=== PATIENT | male | born 1935 | race Caucasian/White ===

== ENCOUNTER 2017-09-08 17:47 | Inpatient (IN) | payer MEDICARE, BC ==
[~2017-09-08] VITALS: Ht 167.6 cm; Wt 49.9 kg
[2017-09-08] MEDS ORDERED: NYSTATIN100000 UN1 ORAL (17:55)
[2017-09-08] MEDS ORDERED: ALUM-MAG HYDRO360 ML PO (17:55)
[2017-09-08] MEDS ORDERED: VITAMIN B-1100 MG ORAL (17:55)
[2017-09-08] MEDS ORDERED: CULTURELLE1 TAB ORAL (17:55)
[2017-09-08] MEDS ORDERED: FOLIC ACID1 MG ORAL (17:55)
[2017-09-08] MEDS ORDERED: ACID CONTROL150 MG ORAL (17:55)
[2017-09-08] MEDS ORDERED: MILK OF MA2400 MG/10 ORAL (17:55)
[2017-09-08] MEDS ORDERED: AMLODIPINE BES2.5 MG ORAL (17:55)
[2017-09-08] MEDS ORDERED: DOCUSATE SODIU100 MG ORAL (17:55)
[2017-09-08] MEDS ORDERED: MULTIVITAMINS1 EAC2 ORAL (17:55)
[2017-09-08] MEDS ORDERED: AUGMENTIN 500-1 EACH ORAL (17:55)
[2017-09-08] MEDS ORDERED: VENELEX OINTMEN60 GM TP (17:55)
[2017-09-08] MEDS ORDERED: TYLENOL EXTRA500 MG ORAL (17:55)
[2017-09-08] MEDS ORDERED: METOPROLOL TART25 MG ORAL (17:55)
[2017-09-08] MEDS ORDERED: CLOPIDOGREL75 MG ORAL (17:55)
[2017-09-08] MEDS ORDERED: PANTOPRAZOLE SO40 MG ORAL (17:55)
[2017-09-08] MEDS ORDERED: ASPIR 8181 MG ORAL (17:55)
[2017-09-08 18:22] VITALS: BP 121/71
[2017-09-08 18:48] LABS: EOSINOPHILS % (AUTO) 1.4 % (0.0-3.0); HEMATOCRIT 57.2 % (42.0-52.0); LYMPHOCYTES % (AUTO) 23.8 % (20.0-45.0); MEAN CORPUSCULAR VOLUME 105 FL (80-99); MONOCYTES % (AUTO) 8.1 % (1.0-10.0); NEUTROPHILS % (AUTO) 65.7 % (45.0-75.0); PLATELET COUNT 168 K/UL (150-450); RED BLOOD COUNT 5.44 M/UL (4.70-6.10); RED CELL DISTRIBUTION WIDTH 13.6 % (11.6-14.8); WHITE BLOOD COUNT 7.9 K/UL (4.8-10.8)
[2017-09-08 19:12] VITALS: BP 130/76
[2017-09-08 19:24] LABS: ALANINE AMINOTRANSFERASE 68 U/L (12-78); ALBUMIN 3.9 G/DL (3.4-5.0); ALBUMIN/GLOBULIN RATIO 0.7 (1.0-2.7); ALKALINE PHOSPHATASE 89 U/L (46-116); ANION GAP 11 mmol/L (5-15); ASPARTATE AMINO TRANSFERASE 39 U/L (15-37); BILIRUBIN,TOTAL 0.8 MG/DL (0.2-1.0); BLOOD UREA NITROGEN 113 mg/dL (7-18); CALCIUM 10.9 MG/DL (8.5-10.1); CARBON DIOXIDE 26 MMOL/L (21-32); CHLORIDE 122 MMOL/L (98-107); CKMB 0.8 NG/ML (0.0-3.6); CREATINE KINASE 135 U/L (26-308); CREATININE 2.8 MG/DL (0.55-1.30); PHOSPHORUS 4.9 MG/DL (2.5-4.9); POTASSIUM 5.3 MMOL/L (3.5-5.1); SODIUM 160 MMOL/L (136-145)
[2017-09-08] MEDS ORDERED: MULTIVITAMINS1 EAC8 ORAL (19:38)
[2017-09-08] MEDS ORDERED: ATORVASTATIN CA40 MG ORAL (19:42)
[2017-09-08] MEDS ORDERED: cefTRIAXone 1 GM in NS 55 ML IVPB ONE (20:00)
[2017-09-08 21:34] VITALS: BP 114/65
--- NOTE | 2017-09-08 23:05 | Emergency Room Report ---
History of Present Illness General Chief Complaint: Generalized Weakness Source: Medical Record Present Illness HPI This is an 81-year-old male brought in by caregiver after increased generalized weakness and failure to thrive. The patient prior history of dementia. The patient was noted to be somewhat confused. Patient has a caregiver per reportedly had been having decreased urine output. Allergies: Coded Allergies: MORPHINE (Verified Allergy, Unknown, 09/08/17) Patient History Past Medical History: see triage record Reviewed Nursing Documentation: PMH: Agreed, PSxH: Agreed Nursing Documentation-PMH Past Medical History: No History, Except For Hx Hypertension: Yes Review of Systems All Other Systems: limited - by mental status Physical Exam Vital Signs Date Time Temp Pulse Resp B/P (MAP) Pulse Ox O2 Delivery O2 Flow Rate FiO2 09/08/17 17:44 97.9 84 18 109/66 100 Room Air Sp02 EP Interpretation: reviewed, normal General Appearance: alert, cachetic, Chronically Ill Head: atraumatic ENT: normal ENT inspection, normal voice, dry mucus membranes Neck: normal inspection, full range of motion, supple, no bony tend Respiratory: normal inspection, lungs clear, normal breath sounds, no respiratory distress, no retraction, no wheezing Cardiovascular #1: regular rate, rhythm, no edema Gastrointestinal: soft, other - distended bladder Genitourinary: no CVA tenderness Musculoskeletal: normal inspection, decreased range of motion, other - muscle atrophy Neurologic: responsive, oil deliverer III-XII nml as tested, speech normal, motor weakness Psychiatric: normal inspection, judgement/insight normal, mood/affect normal Skin: normal inspection, normal color, no rash Medical Decision Making Diagnostic Impression: Primary Impression: Episode of generalized weakness Additional Impressions: Dehydration Urinary obstruction Acute renal failure ER Course .Patient presented for generalized weakness. Differential diagnosis included was not limited to anemia, urinary tract infection, electrolyte abnormality, hypothyroidism, myocardial infarction, myasthenia gravis, dehydration, among others. Because of complexity of patient's case laboratory testing and imaging studies were ordered. Lab for testing was notable for markedly elevated sodium as well as evidence of elevated BUN/creatinine. The patient started on IV hydration. A Mack catheter was attempted by nursing staff without success as patient was noted to have a markedly distended bladder on exam. Dr. Claudio was contacted for urology consult. Patient was noted to large amount of urine output after catheter was placed. Patient was given IV antibiotics empirically for possible urinary infection. Dr. Yanet Medellin was contacted for inpatient management due to primary care physician Lab Results Impression Labs Test 09/08/17 18:20 White Blood Count 7.9 K/UL (4.8-10.8) Red Blood Count 5.44 M/UL (4.70-6.10) Hemoglobin 18.0 G/DL (14.2-18.0) Hematocrit 57.2 % (42.0-52.0) Mean Corpuscular Volume 105 FL (80-99) Mean Corpuscular Hemoglobin 33.1 PG (27.0-31.0) Mean Corpuscular Hemoglobin Concent 31.5 G/DL (32.0-36.0) Red Cell Distribution Width 13.6 % (11.6-14.8) Platelet Count 168 K/UL (150-450) Mean Platelet Volume 9.9 FL (6.5-10.1) Neutrophils (%) (Auto) 65.7 % (45.0-75.0) Lymphocytes (%) (Auto) 23.8 % (20.0-45.0) Monocytes (%) (Auto) 8.1 % (1.0-10.0) Eosinophils (%) (Auto) 1.4 % (0.0-3.0) Basophils (%) (Auto) 1.0 % (0.0-2.0) Prothrombin Time 10.7 SEC (9.30-11.50) Prothromb Time International Ratio 1.0 (0.9-1.1) Activated Partial Thromboplast Time 20 SEC (23-33) Sodium Level 160 MMOL/L (136-145) Potassium Level 5.3 MMOL/L (3.5-5.1) Chloride Level 122 MMOL/L (98-107) Carbon Dioxide Level 26 MMOL/L (21-32) Anion Gap 11 mmol/L (5-15) Blood Urea Nitrogen 113 mg/dL (7-18) Creatinine 2.8 MG/DL (0.55-1.30) Estimat Glomerular Filtration Rate mL/min (>60) Glucose Level 128 MG/DL (74-106) Lactic Acid Level 2.40 mmol/L (0.66-2.22) Calcium Level 10.9 MG/DL (8.5-10.1) Phosphorus Level 4.9 MG/DL (2.5-4.9) Magnesium Level 3.4 MG/DL (1.8-2.4) Total Bilirubin 0.8 MG/DL (0.2-1.0) Aspartate Amino Transf (AST/SGOT) 39 U/L (15-37) Alanine Aminotransferase (ALT/SGPT) 68 U/L (12-78) Alkaline Phosphatase 89 U/L (46-116) Total Creatine Kinase 135 U/L (26-308) Creatine Kinase MB 0.8 NG/ML (0.0-3.6) Creatine Kinase MB Relative Index 0.5 Troponin I 0.006 ng/mL (0.000-0.056) Total Protein 9.4 G/DL (6.4-8.2) Albumin 3.9 G/DL (3.4-5.0) Globulin 5.5 g/dL Albumin/Globulin Ratio 0.7 (1.0-2.7) Last Vital Signs Date Time Temp Pulse Resp B/P (MAP) Pulse Ox O2 Delivery O2 Flow Rate FiO2 09/08/17 21:34 97.9 97 18 114/65 99 Room Air Status: unchanged Disposition: ADMITTED INPATIENT Condition: Serious Referrals: YANET MEDELLIN (PCP) Juan Ramon Crystal Sep 08, 2017 23:05
[2017-09-08] MEDS ORDERED: Milk of Magnesia 30ml Ud ORAL PRN (23:15)
[2017-09-08 23:23] LABS: APPEARANCE,URINE CLEAR; BILIRUBIN, URINE NEGATIVE (NEGATIVE); COLOR,URINE PALE YELLOW; GLUCOSE, URINE (UA) NEGATIVE (NEGATIVE); KETONES,URINE NEGATIVE (NEGATIVE); LEUKOCYTE ESTERASE ,URINE NEGATIVE (NEGATIVE); NITRITE,URINE NEGATIVE (NEGATIVE); PH,URINE 5 (4.5-8.0); PROTEIN,URINE 1+ (NEGATIVE); UROBILINOGEN,URINE NORMAL MG/DL (0.0-1.0)
[2017-09-09] VITALS (7 sets, daily range): BP systolic 96–137; BP diastolic 54–92
--- NOTE | 2017-09-09 | Consultation ---
DATE OF CONSULTATION: 09/08/2017 UROLOGY CONSULTATION PREOPERATIVE DIAGNOSIS: Urinary retention. POSTOPERATIVE DIAGNOSES: 1. Urinary retention. 2. Urethral stricture. PLASTICS PLATER: Dr. Bonds. REASON FOR CONSULTATION: The patient is an 81-year-old male came into the emergency room with altered mental status, found to be in urinary retention. I was not able to gather any other history from this patient. Nurses attempted to place Mack catheter unsuccessfully. The patient developed hematuria from the urethra, I was called. PHYSICAL EXAMINATION: Hematuria at the penile urethral meatus and otherwise genitourinary exam relatively normal. At this point with urinary retention, I decided to place a Mack catheter and proceeded with a complicated Mack catheter placement using the catheter guide. With a 16-Spanish Mack catheter, I noticed resistance at the bulbar urethra, however, with a catheter guide, I was able to pass this area and enter the bladder. There was some hematuria around the catheter, however, the urine from the bladder became relatively grossly clear. My recommendation on this patient is to continue with the Mack catheter for another couple of days while his medical issues are resolved and then the Mack catheter may be removed to see if he can void and then to please call if there is any difficulty with voiding at that time, however, improved with dilation of stricture, which occurred with placement of Mack catheter with a catheter guide that I performed. Yasmany Bonds DR: ANGEL JOB#: [id number] CC:
[2017-09-09] MEDS ORDERED: ZANTAC150 MG ORAL (01:12)
[2017-09-09] MEDS: Nystatin Susp 500,000 units/5ml ORAL SCH ×3 (08:00→19:00)
[2017-09-09] MEDS: Thiamine 100mg tab ORAL SCH (08:01)
[2017-09-09] MEDS: Docusate 100mg cap ORAL SCH ×3 (08:01→22:00)
[2017-09-09] MEDS: Lactobacillus-GG tablet ORAL SCH ×2 (08:01→19:00)
[2017-09-09] MEDS: Metoprolol 25mg tab ORAL SCH ×2 (08:02→22:00)
[2017-09-09] MEDS: Aspirin Baby 81mg ORAL SCH (08:03)
[2017-09-09] MEDS: Heparin 5000 units/ml inj SUBQ SCH ×2 (08:04→22:02)
[2017-09-09 10:31] LABS: BASOPHILS % (AUTO) 0.9 % (0.0-2.0); EOSINOPHILS % (AUTO) 2.1 % (0.0-3.0); HEMATOCRIT 47.3 % (42.0-52.0); HEMOGLOBIN 14.8 G/DL (14.2-18.0); LYMPHOCYTES % (AUTO) 15.1 % (20.0-45.0); MEAN CORPUSCULAR VOLUME 105 FL (80-99); MONOCYTES % (AUTO) 8.3 % (1.0-10.0); NEUTROPHILS % (AUTO) 73.6 % (45.0-75.0); PLATELET COUNT 156 K/UL (150-450); RED BLOOD COUNT 4.51 M/UL (4.70-6.10); RED CELL DISTRIBUTION WIDTH 13.6 % (11.6-14.8); WHITE BLOOD COUNT 8.4 K/UL (4.8-10.8)
[2017-09-09 10:54] LABS: ALANINE AMINOTRANSFERASE 63 U/L (12-78); ALBUMIN 3.2 G/DL (3.4-5.0); ALBUMIN/GLOBULIN RATIO 0.7 (1.0-2.7); ALKALINE PHOSPHATASE 78 U/L (46-116); ANION GAP 8 mmol/L (5-15); ASPARTATE AMINO TRANSFERASE 37 U/L (15-37); BILIRUBIN,TOTAL 0.7 MG/DL (0.2-1.0); BLOOD UREA NITROGEN 93 mg/dL (7-18); CALCIUM 9.8 MG/DL (8.5-10.1); CARBON DIOXIDE 28 MMOL/L (21-32); CHLORIDE 126 MMOL/L (98-107); CHOLESTEROL 98 MG/DL (< 200); CREATININE 2.4 MG/DL (0.55-1.30); HDL CHOLESTEROL 22 MG/DL (40-60); POTASSIUM 4.6 MMOL/L (3.5-5.1); TRIGLYCERIDES 78 MG/DL (30-150)
[2017-09-09 11:10] LABS: SODIUM 162 MMOL/L (136-145)
--- NOTE | 2017-09-09 11:12 | Diagnostic Imaging Report ---
Indication: Dyspnea Technique: XRAY Chest 1v Comparison: None Findings: Heart size is within normal limits. Atherosclerotic calcifications noted in the aortic arch. There is mild nonspecific interstitial prominence. There is no focal airspace consolidation, pleural effusion or pneumothorax. There is osteopenia and degenerative change of the spine. No acute osseous abnormality is seen. Impression: Minimal nonspecific interstitial prominence, likely chronic. No focal airspace consolidation, pleural effusion or pneumothorax.
--- NOTE | 2017-09-09 11:26 | Consultation ---
Consult Note Assessment/Plan Renal consult dictated # [id number] MARYA KENDALL Sep 09, 2017 11:26
[2017-09-09] MEDS ORDERED: NS Irrig 1000ml ONE (13:44)
--- NOTE | 2017-09-09 14:41 | Consultation ---
Consult Note Consult Note [facility] CONSULTATION - NEUROLOGY 09/09/2017 MARKETING SYSTEMS MANAGER: Susy Brice M.D. REFERRING PHYSICIAN: Quintin Walker M.D. HISTORY: Mr. Aashish Cordova is an 81-year-old, right-handed, gentleman, who does have a past history of hypertension, dyslipidemia, coronary artery disease - status post percutaneous intervention, chronic kidney disease, benign prostatic hypertrophy, anemia, alcoholism a dementia. He was functioning relatively well until 08/13/2017, when he was brought to the [facility] emergency room for a 2-day history of a dry cough, generalized weakness, fever to 101 degrees Fahrenheit, and inability to get out of bed. When he was evaluated and was found to have influenza type A, and in addition, a possible pneumonia. He was treated for those problems, and improved. He has had a cognitive decline for the last year or so, and as per his caregiver, he has had problems with controlling his limbs, especially his hands, for the last 6 months ago. In addition, his legs have also become weaker, and walking has deteriorated to a point where he has now lost his ability to walk. He, himself, is quite oblivious of what is going on. He had a thorough work up at [facility]. The EEG revealed a moderate encephalopathy. The MRI of the brain done on 08/16/17 revealed significant atrophy, moderate microvascular ischemic white matter pathology, and marked ventriculomegaly without obstructive mass of an ex-vacuo nature. It was felt that he had an ongoing acute infection with influenza A associated with a toxic febrile illness, and his dementia was most probably of a primary degenerative nature. He was then stabilized and sent home with his caregivers. For the last few days he had not been eating or drinking and his mental state was further deteriorating. He was thus brought into the [facility] ER and admitted. Evaluation in the ER revealed that he was severely dehydrated. He was started on IV fluids and has since improved. He denies any weakness on one side or the other, numbness on one side or the other, problems with speech, problems with language, problems with vision, problems with memory, or any other neurological symptoms. PAST MEDICAL HISTORY: Significant for hypertension, dyslipidemia, chronic kidney disease, coronary artery disease - status post percutaneous intervention, benign prostatic hypertrophy, chronic anemia, alcoholism, a recent infection with influenza A and dementia. FAMILY HISTORY: Nothing significant as per the patient. PERSONAL HISTORY: Home: He lives at home with 24-hour caregivers. 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 Habits: He used to smoke up to 2 packs of cigarettes per day for numerous years. He stopped smoking a few years ago. He used to drink alcohol in large quantities in the past, but now only has a glass of wine with a steak once in awhile. He denies the use of any illicit drugs. PHYSICAL EXAMINATION: GENERAL: He is a well-developed but lean and ill-looking gentleman lying in bed, in no acute distress. VITAL SIGNS: Pulse 98 per minute Blood pressure 117/59 mmHg, Respirations 18 per minute Temperature 97 degrees Fahrenheit. HEAD: Normocephalic and atraumatic. NECK: No neck rigidity was observed. EENT: Examination benign. NEUROLOGICAL EXAMINATION: MENTAL STATUS EXAMINATION: He was awake and alert. He was oriented to self only. He had no idea where he was or what the date was. He was able to recall 3/3 words immediately, but could not remember any of them in 1 minute and 3 minutes, even on the second trial. He was unable to tell me who the present president was and who prior presidents were. His mathematical skills were impaired. His visuospatial function was also impaired. SPEECH: He had a mild dysarthria. LANGUAGE: He had problems with comprehension, repetition, naming, and expression of language. CRANIAL NERVE EXAMINATION: II: The visual miller were difficult to test because of his inability to cooperate. He did, however, blink to threat in all miller. He made numerous errors when he was made to count fingers. III, IV & : The external ocular movements were full, and the pupils 3 mm in diameter, equal, round, regular, and reactive to light. V: He had normal facial sensations and the temporales, masseters, and pterygoids functioned normally. VII: He had a trace right 7th central facial paresis. VIII: He was able to hear, and had no nystagmus. IX: The palate moved symmetrically on phonation. X: He had no hoarseness of voice. XI: The sternocleidomastoids and trapezii functioned normally. XII: The tongue was in the midline without any fasciculations or atrophy. MOTOR SYSTEM: The tone was increased in all 4 extremities with a combination of spasticity and Gegenhalten. Examination of muscle mass revealed no focal wasting. Examination of power was exceedingly difficult to perform because of varying degrees of cooperation. He did, however, move all 4 extremities on command with mild distal upper extremity and proximal lower extremity weakness. SENSORY EXAMINATION: He was able to discern between pinprick and light touch. He was unable to cooperate for other sensory modalities. REFLEXES: 1+ and bilaterally symmetrical at~the biceps, triceps, brachioradialis, and knees; 0 at both ankles. The plantar responses were flexor bilaterally. COORDINATION:He was significantly apractic in both his upper and lower extremities, and was unable to perform vvdytt-ms-[id number] and kpef-ak-[id number] testing. STANCE & GAIT: Were deferred because, even when attempts were made to sit him up, he was severely apractic. DIAGNOSTIC IMPRESSION: 1. Mr. Aashish Cordova is an 81-year-old, right-handed, gentleman, who does have a past history of hypertension, dyslipidemia, coronary artery disease - status post percutaneous intervention, chronic kidney disease, benign prostatic hypertrophy, anemia, alcoholism, influenza type A, and a possible pneumonia, and a cognitive decline for the last year. He was hospitalized for failure to thrive. 2. On neurological examination, at this time, he does have problems with orientation, recent and remote memory, visuospatial function, higher cognitive function, and language. 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 3. His laboratory data on admission revealed that his creatinine was elevated to 2.8, his BUN was elevated to 113, his Na was elevated to 162, his Cl was elevated to 122, his HB was elevated to 18 G. 4. The patient's history, neurological examination, laboratory data are most compatible with failure to thrive due to severe dehydration due to not eating or drinking. He also has an underlying advanced dementia. RECOMMENDATIONS: 1. Agree with management thus far. 2. Would treat the patient's dehydration - but correct it slowly. 3. Mobilize with PT/OT Thank you for entrusting me with the care of Mr. Cordova. I shall follow him with you. SUSY BRICE M.D., MDangSJusten. SUSY BRICE Sep 09, 2017 14:41
--- NOTE | 2017-09-09 19:15 | Consultation ---
DATE OF CONSULTATION: 09/09/2017 NEPHROLOGY CONSULTATION CONSULTING PHYSICIAN: Baudilio Payne M.D. REFERRING PHYSICIAN: Quintin Walker M.D. REASON FOR CONSULTATION: Hypernatremia and renal failure. HISTORY OF PRESENT ILLNESS: This is an 81-year-old after white male, who was brought in by caregiver apparently for generalized weakness and failure to thrive. The patient does have a history of dementia. Upon admission, it was found that he had a serum sodium of 160. Also BUN and creatinine were elevated at 113 and 2.8. The patient received some intravenous normal saline bolus and then later started on D5W at 125 mL/hour. Today, the serum sodium is still elevated at 162 and BUN and creatinine are 93 and 2.4 respectively. The patient is unable to provide any history. He is somewhat lethargic. PAST MEDICAL HISTORY: The patient has history of hyperlipidemia and dementia. Otherwise, I am not able to get any additional information. MEDICATIONS: Reviewed in the EMR and reconciled. ALLERGIES: Reported to morphine. SOCIAL HISTORY: The patient lives with a caregiver. No history of smoking or alcohol abuse. REVIEW OF SYSTEMS: Unobtainable. PHYSICAL EXAMINATION: GENERAL: The patient is an elderly male, in no acute distress. Somewhat lethargic. VITAL SIGNS: Blood pressure is 125/73, pulse 105, temperature 97.3, and respiratory rate is 16. HEENT: [place] conjunctivae. Anicteric sclerae. NECK: Supple. LUNGS: Clear to auscultation. HEART: S1 and S2 without murmurs or rubs. ABDOMEN: Soft and nontender. EXTREMITIES: No cyanosis or edema. LABORATORY FINDINGS: CBC as of today shows WBC of 8.4, hematocrit is 47.3, hemoglobin is 14.8, and platelet is 156,000. The chemistry panel shows a serum sodium 162, potassium 4.6, chloride 126, carbon dioxide 28, BUN 93, creatinine 2.4, and blood sugar is 163. Albumin is 3.2. UA shows 1+ protein and 20 to 30 RBCs per high-power field. ASSESSMENT: This is an 81-year-old white male, who was admitted with generalized weakness and failure to thrive. It was found that he had severe hypernatremia and also renal failure. I do not know what his baseline is, but likely he has acute renal failure as a result of prerenal azotemia. It may have underlying chronic kidney disease as well. He does have 1+ protein in the urine, which could hint towards chronic kidney disease from atherosclerosis. PLAN: Current intravenous fluid D5W at 125 mL/h is adequate to correct at least half of the free water deficit in the next 24 hours and I will continue with that. I assume that the serum sodium did not get corrected because the patient received some normal saline when he was admitted. In terms of his renal failure, he does have acute renal failure, which has improved again from prerenal azotemia. However if after hydration, he still has residual CKD, additional testing may be required such as a kidney ultrasound. Thank you very much, Dr. Walker, for this consultation. Baudilio Payne M.D. DR: JOAQUIN JOB#: [id number] CC:
[2017-09-09] MEDS: Atorvastatin 20mg tab ORAL SCH (22:00)
[2017-09-10] VITALS: BP 132/73
[2017-09-10 04:00] VITALS: BP 146/77
--- NOTE | 2017-09-10 04:33 | History and Physical Report ---
DATE OF ADMISSION: 09/08/2017 HISTORY OF PRESENT ILLNESS: The patient is a very pleasant, but unfortunate 81-year-old gentleman with a previous history of alcoholism, history of recent admission to [facility] with influenza, who presented to the emergency room here at [place] with failure to thrive, brought in by his caregiver with increased generalized weakness and not eating, confused, decreased urine output. The patient was evaluated in the ER, was noted to be in acute renal failure. He was also noted to be in urinary retention. A urologist was called by the ER physician and the Mack catheter was placed. There was no fevers or chills or cough at home. 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 ALLERGIES: Allergic to morphine. SOCIAL HISTORY: The patient resides at home, has a caregiver. Does not smoke, does not drink any alcohol at this time, although he has a history of alcoholism. PHYSICAL EXAMINATION: GENERAL: He is ill appearing, in no apparent distress. VITAL SIGNS: Temperature was 97.9, pulse 84, respiratory rate 18, blood pressure 109/66, and saturations 100% on room air. HEENT: Head, normocephalic and atraumatic. Pupils are equal and reactive to light. Extraocular muscles are intact. Eyes are anicteric. Throat, mucous membranes are very dry. NECK: Supple. LUNGS: Clear. HEART: Regular rate and rhythm. ABDOMEN: Soft. Positive bowel sounds. BACK: No CVA tenderness. EXTREMITIES: No clubbing, cyanosis, or edema. He does have muscle atrophy. NEUROLOGIC: Cranial nerves are intact. He has generalized weakness of his arms and legs. He opens his eyes. SKIN: He has got decreased turgor and dry. LABORATORY AND DIAGNOSTIC DATA: Revealed a white count of 7.9, hemoglobin 18, hematocrit 57.2, MCV 105, and platelet count 168,000. Sodium 160, potassium 5.3, chloride 122, BUN 113, creatinine 2.8, glucose 128, calcium 10.9, and magnesium 3.4. Troponin 0.06. Lactic acid 2.4. AST of 39. Urinalysis, 20 to 30 RBCs, 5+ blood, no WBCs. This is through the Mack. His chest x-ray reveals minimal nonspecific interstitial prominence, likely chronic. No focal airspace consolidation, effusion, or pneumothorax. ASSESSMENT AND PLAN: The patient is an unfortunate 81-year-old gentleman, who presents with failure to thrive and appears to be in acute renal failure, urinary obstruction, and he had a distended bladder. Mack was placed. The patient will be admitted. Renal ultrasound will be obtained. He will be placed on D5W. I will ask for Nephrology consultation from Dr. Payne to see him as well as Neurology consultation from Dr. Feng to see him. The patient should be on DVT and ulcer prophylaxis. Quintin Walker M.D. DR: TREY JOB#: [id number] CC:
--- NOTE | 2017-09-10 05:03 | Progress Note ---
DATE: 09/09/2017 UROLOGY PROGRESS NOTE SUBJECTIVE: The patient is currently without complaints, mainly in bed comfortably with Mack catheter in place. Mack catheter is draining clear urine. OBJECTIVE: VITAL SIGNS: Include a temperature of 98.1 degrees, blood pressure 137/78. ABDOMEN: Soft and nontender. Mack catheter is in place with no hematuria and no bleeding around the urethral meatus. LABORATORY VALUES: Include sodium of 162, potassium 4.6, BUN of 97, and creatinine 2.4. ASSESSMENT AND PLAN: My assessment of the patient is that he has severe hypernatremia. He has urinary retention from a urethral stricture. Mack catheter is in place draining beautifully and should be maintained while his medical issues are being addressed. Once the medical condition has improved, Mack catheter may be removed as he will likely be able to urinate much better as urethral stricture has been dilated in the process of placing the Mack catheter. Yasmany Bonds DR: Marcelina JOB#: [id number] CC:
[2017-09-10 08:00] VITALS: BP 144/62
[2017-09-10] MEDS: Thiamine 100mg tab ORAL SCH (09:17)
[2017-09-10] MEDS: Aspirin Baby 81mg ORAL SCH (09:17)
[2017-09-10] MEDS: Docusate 100mg cap ORAL SCH ×2 (09:17→20:06)
[2017-09-10] MEDS: Nystatin Susp 500,000 units/5ml ORAL SCH ×3 (09:19→17:34)
[2017-09-10] MEDS: Lactobacillus-GG tablet ORAL SCH ×2 (09:19→17:35)
[2017-09-10] MEDS: Heparin 5000 units/ml inj SUBQ SCH ×2 (09:25→20:09)
[2017-09-10] MEDS: Metoprolol 25mg tab ORAL SCH ×2 (09:27→20:07)
[2017-09-10 12:00] VITALS: BP 128/66
--- NOTE | 2017-09-10 12:33 | General Progress Note ---
Assessment/Plan Problem List: (1) Hypernatremia ICD Codes: E87.0 - Hyperosmolality and hypernatremia SNOMED: 03649301 (2) Acute renal failure ICD Codes: N17.9 - Acute kidney failure, unspecified SNOMED: 50585162 (3) Episode of generalized weakness ICD Codes: R53.1 - Weakness SNOMED: 09953172 Assessment/Plan IVF check labs Renal US Discussed with RN Subjective Allergies: Coded Allergies: MORPHINE (Verified Allergy, Unknown, 09/08/17) Subjective more alert Objective Last 24 Hour Vital Signs Date Time Temp Pulse Resp B/P (MAP) Pulse Ox O2 Delivery O2 Flow Rate FiO2 09/10/17 09:27 105 144/62 09/10/17 09:26 105 144/62 09/10/17 08:00 105 09/10/17 08:00 97.9 105 18 144/62 96 Room Air 09/10/17 04:00 98.0 112 16 146/77 95 Room Air 09/10/17 04:00 115 09/10/17 00:00 121 09/10/17 00:00 98.1 123 16 132/73 97 Room Air 09/09/17 22:00 127 133/75 09/09/17 20:00 97.0 62 15 96/57 90 09/09/17 20:00 125 09/09/17 16:00 99 09/09/17 16:00 96.4 109 20 134/92 97 Room Air Intake and Output 09/09/17 09/10/17 19:00 07:00 Intake Total 1250 ml Output Total 200 ml 400 ml Balance 1050 ml -400 ml IV Total 1250 ml Output Urine Total 200 ml 400 ml # Bowel Movements 1 Laboratory Tests 09/10/17 12:10: Sodium Level [Pending], Potassium Level [Pending], Chloride Level [Pending], Carbon Dioxide Level [Pending], Blood Urea Nitrogen [Pending], Creatinine [ Pending], Estimat Glomerular Filtration Rate [Pending], Glucose Level [Pending] , Calcium Level [Pending] Height (Feet): 5 Height (Inches): 6.00 Weight (Pounds): 110 Cardiovascular: normal rate Respiratory/Chest: lungs clear Edema: no edema noted MARYA Kelly Sep 10, 2017 12:33
[2017-09-10 12:37] LABS: ANION GAP 8 mmol/L (5-15); BLOOD UREA NITROGEN 67 mg/dL (7-18); CARBON DIOXIDE 24 MMOL/L (21-32); CHLORIDE 122 MMOL/L (98-107); POTASSIUM 4.1 MMOL/L (3.5-5.1); SODIUM 154 MMOL/L (136-145)
--- NOTE | 2017-09-10 14:02 | Neurology Progress Note ---
Interim History Interim History Interim History Mr. Cordova feels better today. He is brighter. He however continues to be cognitively impoverished. He continues to be motorically challenged. He has a very painful left ankle. His caregiver says he has a sore there. He denies any new neurologic symptoms. Review of Systems Neuro Review of Systems Unable to obtain. Objective Physical Exam Last Vital Signs Date Time Temp Pulse Resp B/P (MAP) Pulse Ox O2 Delivery O2 Flow Rate FiO2 09/10/17 09:27 105 144/62 09/10/17 08:00 97.9 18 96 Room Air Laboratory Tests Test 09/10/17 12:10 Sodium Level 154 MMOL/L (136-145) H Potassium Level 4.1 MMOL/L (3.5-5.1) Chloride Level 122 MMOL/L (98-107) H Carbon Dioxide Level 24 MMOL/L (21-32) Anion Gap 8 mmol/L (5-15) Blood Urea Nitrogen 67 mg/dL (7-18) H Creatinine 2.0 MG/DL (0.55-1.30) H Estimat Glomerular Filtration Rate mL/min (>60) Glucose Level 102 MG/DL (74-106) Calcium Level 9.0 MG/DL (8.5-10.1) Neurologic Exam Objective PHYSICAL EXAMINATION: GENERAL: He is a well-developed but lean and ill-looking gentleman lying in bed, in no acute distress. HEAD: Normocephalic and atraumatic. NECK: No neck rigidity was observed. EENT: Examination benign. NEUROLOGICAL EXAMINATION: MENTAL STATUS EXAMINATION: He was awake and alert. He was oriented to self only. He had no idea where he was or what the date was. He was able to recall 3/3 words immediately, but could not remember any of them in 1 minute and 3 minutes, even on the second trial. He was unable to tell me who the present president was and who prior presidents were. His mathematical skills were impaired. His visuospatial function was also impaired. SPEECH: He had a mild dysarthria. LANGUAGE: He had problems with comprehension, repetition, naming, and expression of language. CRANIAL NERVE EXAMINATION: II: The visual miller were difficult to test because of his inability to cooperate. He did, however, blink to threat in all miller. He made numerous errors when he was made to count fingers. III, IV & : The external ocular movements were full, and the pupils 3 mm in diameter, equal, round, regular, and reactive to light. V: He had normal facial sensations and the temporales, masseters, and pterygoids functioned normally. VII: He had a trace right 7th central facial paresis. VIII: He was able to hear, and had no nystagmus. IX: The palate moved symmetrically on phonation. X: He had no hoarseness of voice. XI: The sternocleidomastoids and trapezii functioned normally. XII: The tongue was in the midline without any fasciculations or atrophy. MOTOR SYSTEM: The tone was increased in all 4 extremities with a combination of spasticity and Gegenhalten. Examination of muscle mass revealed no focal wasting. Examination of power was exceedingly difficult to perform because of varying degrees of cooperation. He did, however, move all 4 extremities on command with mild distal upper extremity and proximal lower extremity weakness. SENSORY EXAMINATION: He was able to discern between pinprick and light touch. He was unable to cooperate for other sensory modalities. REFLEXES: 1+ and bilaterally symmetrical at~the biceps, triceps, brachioradialis , and knees; 0 at both ankles. The plantar responses were flexor bilaterally. COORDINATION:He was significantly apractic in both his upper and lower extremities, and was unable to perform [id number]-[id number] and oqby-uv-vmdw testing. STANCE & GAIT: Were deferred because, even when attempts were made to sit him up , he was severely apractic. Impression/Recommendations Diagnostic Impression 1. Mr. Aashish Cordova is an 81-year-old, right-handed, gentleman, who does have a past history of hypertension, dyslipidemia, coronary artery disease - status post percutaneous intervention, chronic kidney disease, benign prostatic hypertrophy, anemia, alcoholism, influenza type A, and a possible pneumonia, and a cognitive decline for the last year. He was hospitalized for failure to thrive. 2. He feels better today. He is brighter. He however continues to be cognitively impoverished. He continues to be motorically challenged. He has a very painful left ankle. 3. On neurological examination, at this time, he does have problems with orientation, recent and remote memory, visuospatial function, higher cognitive function, and language. 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 4. His laboratory data on admission revealed that his creatinine was elevated to 2.8, his BUN was elevated to 113, his Na was elevated to 162, his Cl was elevated to 122, his HB was elevated to 18 G. 5. The patient's history, neurological examination, laboratory data are most compatible with failure to thrive due to severe dehydration due to not eating or drinking. He also has an underlying advanced dementia. Recommendations 1. Continue present management. 2. Continue correction of hypernatremia slowly. 3. Mobilize with PT/OT. SUSY BRICE M.D., M.S.P.Tiffany. SUSY BRICE Sep 10, 2017 14:02
[2017-09-10 16:00] VITALS: BP 136/69
--- NOTE | 2017-09-10 16:47 | General Progress Note ---
Assessment/Plan Assessment/Plan dehration renal failure hypernatremia urinary obstruction dementia ho alcoholism fluids nephrolgy fup has rasmussen monitor labs dvt and ulcer prophylaxis pt/ot Subjective Allergies: Coded Allergies: MORPHINE (Verified Allergy, Unknown, 09/08/17) Subjective still lethargic but more awake, problem with swalllowing no chest pain or sob Objective Last 24 Hour Vital Signs Date Time Temp Pulse Resp B/P (MAP) Pulse Ox O2 Delivery O2 Flow Rate FiO2 09/10/17 16:00 97.4 85 20 136/69 96 Room Air 09/10/17 12:00 98.4 86 18 128/66 97 Room Air 09/10/17 12:00 88 09/10/17 09:27 105 144/62 09/10/17 09:26 105 144/62 09/10/17 08:00 105 09/10/17 08:00 97.9 105 18 144/62 96 Room Air 09/10/17 04:00 98.0 112 16 146/77 95 Room Air 09/10/17 04:00 115 09/10/17 00:00 121 09/10/17 00:00 98.1 123 16 132/73 97 Room Air 09/09/17 22:00 127 133/75 09/09/17 20:00 97.0 62 15 96/57 90 09/09/17 20:00 125 Intake and Output 09/09/17 09/10/17 19:00 07:00 Intake Total 1250 ml Output Total 200 ml 400 ml Balance 1050 ml -400 ml IV Total 1250 ml Output Urine Total 200 ml 400 ml # Bowel Movements 1 Laboratory Tests 09/10/17 12:10: Sodium Level 154H, Potassium Level 4.1, Chloride Level 122H, Carbon Dioxide Level 24, Anion Gap 8, Blood Urea Nitrogen 67H, Creatinine 2.0H, Estimat Glomerular Filtration Rate , Glucose Level 102, Calcium Level 9.0 Height (Feet): 5 Height (Inches): 6.00 Weight (Pounds): 110 Neck: supple Cardiovascular: normal rate Respiratory/Chest: lungs clear Abdomen: soft Objective ncat peerla temporal wasting mouth moist mucous membrane YANET MEDELLIN Sep 10, 2017 16:47
[2017-09-10 18:08] LABS: BASOPHILS % (AUTO) 0.8 % (0.0-2.0); EOSINOPHILS % (AUTO) 2.9 % (0.0-3.0); HEMATOCRIT 41.5 % (42.0-52.0); HEMOGLOBIN 13.2 G/DL (14.2-18.0); LYMPHOCYTES % (AUTO) 21.5 % (20.0-45.0); MEAN CORPUSCULAR VOLUME 103 FL (80-99); MONOCYTES % (AUTO) 7.7 % (1.0-10.0); NEUTROPHILS % (AUTO) 67.1 % (45.0-75.0); PLATELET COUNT 125 K/UL (150-450); RED BLOOD COUNT 4.02 M/UL (4.70-6.10); RED CELL DISTRIBUTION WIDTH 12.9 % (11.6-14.8); WHITE BLOOD COUNT 8.4 K/UL (4.8-10.8)
[2017-09-10 18:29] LABS: SODIUM 152 MMOL/L (136-145)
[2017-09-10 18:30] LABS: ALANINE AMINOTRANSFERASE 78 U/L (12-78); ALBUMIN 2.8 G/DL (3.4-5.0); ALBUMIN/GLOBULIN RATIO 0.7 (1.0-2.7); ALKALINE PHOSPHATASE 81 U/L (46-116); ANION GAP 9 mmol/L (5-15); ASPARTATE AMINO TRANSFERASE 68 U/L (15-37); BILIRUBIN,TOTAL 0.7 MG/DL (0.2-1.0); BLOOD UREA NITROGEN 61 mg/dL (7-18); CARBON DIOXIDE 27 MMOL/L (21-32); CHLORIDE 117 MMOL/L (98-107); CREATININE 1.9 MG/DL (0.55-1.30); POTASSIUM 4.1 MMOL/L (3.5-5.1)
[2017-09-10 20:00] VITALS: BP 144/77
[2017-09-10] MEDS: Atorvastatin 20mg tab ORAL SCH (20:07)
[2017-09-11] VITALS: BP 145/57
[2017-09-11 04:00] VITALS: BP 127/60
[2017-09-11 07:20] LABS: BASOPHILS % (AUTO) 0.6 % (0.0-2.0); EOSINOPHILS % (AUTO) 2.4 % (0.0-3.0); HEMATOCRIT 40.6 % (42.0-52.0); HEMOGLOBIN 13.4 G/DL (14.2-18.0); LYMPHOCYTES % (AUTO) 20.4 % (20.0-45.0); MEAN CORPUSCULAR VOLUME 102 FL (80-99); MONOCYTES % (AUTO) 7.9 % (1.0-10.0); NEUTROPHILS % (AUTO) 68.8 % (45.0-75.0); PLATELET COUNT 130 K/UL (150-450); RED BLOOD COUNT 3.98 M/UL (4.70-6.10); RED CELL DISTRIBUTION WIDTH 12.9 % (11.6-14.8); WHITE BLOOD COUNT 8.5 K/UL (4.8-10.8)
[2017-09-11 08:00] VITALS: BP 115/64
[2017-09-11 08:06] LABS: ANION GAP 9 mmol/L (5-15); BLOOD UREA NITROGEN 50 mg/dL (7-18); CALCIUM 8.9 MG/DL (8.5-10.1); CARBON DIOXIDE 25 MMOL/L (21-32); CHLORIDE 118 MMOL/L (98-107); CREATININE 1.9 MG/DL (0.55-1.30); SODIUM 151 MMOL/L (136-145)
--- NOTE | 2017-09-11 08:33 | General Progress Note ---
Assessment/Plan Assessment/Plan GI CONSULT Dictated Message left with William Haynes to call back to discuss matters. Will place NGT for now until further discussed with DPARETHA. Thank you Harrison Amezcua MD Subjective Allergies: Coded Allergies: MORPHINE (Verified Allergy, Unknown, 09/08/17) Objective Last 24 Hour Vital Signs Date Time Temp Pulse Resp B/P (MAP) Pulse Ox O2 Delivery O2 Flow Rate FiO2 09/11/17 04:00 98.8 109 18 127/60 97 Room Air 09/11/17 04:00 105 09/11/17 00:00 99.7 100 18 145/57 95 Room Air 09/11/17 00:00 96 09/10/17 20:07 104 144/77 09/10/17 20:00 98.2 104 24 144/77 94 Room Air 09/10/17 20:00 104 09/10/17 16:00 97.4 85 20 136/69 96 Room Air 09/10/17 16:00 78 09/10/17 12:00 98.4 86 18 128/66 97 Room Air 09/10/17 12:00 88 09/10/17 09:27 105 144/62 09/10/17 09:26 105 144/62 Intake and Output 09/10/17 09/11/17 19:00 07:00 Intake Total 425 ml 325 ml Output Total 550 ml 450 ml Balance -125 ml -125 ml Intake Oral 50 ml 200 ml IV Total 375 ml 125 ml Output Urine Total 550 ml 450 ml # Bowel Movements 1 Laboratory Tests 09/10/17 12:10: Sodium Level 154H, Potassium Level 4.1, Chloride Level 122H, Carbon Dioxide Level 24, Anion Gap 8, Blood Urea Nitrogen 67H, Creatinine 2.0H, Estimat Glomerular Filtration Rate , Glucose Level 102, Calcium Level 9.0 09/10/17 17:45: Sodium Level 152H, Potassium Level 4.1, Chloride Level 117H, Carbon Dioxide Level 27, Anion Gap 9, Blood Urea Nitrogen 61H, Creatinine 1.9H, Estimat Glomerular Filtration Rate , Glucose Level 119H, Calcium Level 9.0, White Blood Count 8.4, Red Blood Count 4.02L, Hemoglobin 13.2L, Hematocrit 41.5L, Mean Corpuscular Volume 103H, Mean Corpuscular Hemoglobin 32.9H, Mean Corpuscular Hemoglobin Concent 31.9L, Red Cell Distribution Width 12.9, Platelet Count 125L , Mean Platelet Volume 10.6H, Neutrophils (%) (Auto) 67.1, Lymphocytes (%) (Auto ) 21.5, Monocytes (%) (Auto) 7.7, Eosinophils (%) (Auto) 2.9, Basophils (%) ( Auto) 0.8, Total Bilirubin 0.7, Aspartate Amino Transf (AST/SGOT) 68H, Alanine Aminotransferase (ALT/SGPT) 78, Alkaline Phosphatase 81, Total Protein 7.0, Albumin 2.8L, Globulin 4.2, Albumin/Globulin Ratio 0.7L 09/11/17 04:40: Sodium Level 151H, Potassium Level 4.0, Chloride Level 118H, Carbon Dioxide Level 25, Anion Gap 9, Blood Urea Nitrogen 50H, Creatinine 1.9H, Estimat Glomerular Filtration Rate , Glucose Level 103, Calcium Level 8.9, White Blood Count 8.5, Red Blood Count 3.98L, Hemoglobin 13.4L, Hematocrit 40.6L, Mean Corpuscular Volume 102H, Mean Corpuscular Hemoglobin 33.6H, Mean Corpuscular Hemoglobin Concent 33.0, Red Cell Distribution Width 12.9, Platelet Count 130L, Mean Platelet Volume 10.4H, Neutrophils (%) (Auto) 68.8, Lymphocytes (%) (Auto) 20.4, Monocytes (%) (Auto) 7.9, Eosinophils (%) (Auto) 2.4, Basophils (%) (Auto ) 0.6, Thyroid Stimulating Hormone (TSH) 0.019L 09/11/17 08:00: Urine Color [Pending], Urine Appearance [Pending], Urine pH [Pending], Urine Specific [place] [Pending], Urine Protein [Pending], Urine Glucose (UA) [Pending ], Urine Ketones [Pending], Urine Occult Blood [Pending], Urine Nitrite [Pending ], Urine Bilirubin [Pending], Urine Urobilinogen [Pending], Urine Leukocyte Esterase [Pending], Urine RBC [Pending], Urine WBC [Pending], Urine Squamous Epithelial Cells [Pending], Urine Bacteria [Pending] Height (Feet): 5 Height (Inches): 6.00 Weight (Pounds): 110 HARRISON AMEZCUA Sep 11, 2017 08:33
[2017-09-11 08:35] LABS: APPEARANCE,URINE CLEAR; BILIRUBIN, URINE NEGATIVE (NEGATIVE); COLOR,URINE PALE YELLOW; GLUCOSE, URINE (UA) NEGATIVE (NEGATIVE); KETONES,URINE NEGATIVE (NEGATIVE); LEUKOCYTE ESTERASE ,URINE NEGATIVE (NEGATIVE); NITRITE,URINE NEGATIVE (NEGATIVE); PH,URINE 6.5 (4.5-8.0); PROTEIN,URINE 2+ (NEGATIVE); UROBILINOGEN,URINE NORMAL MG/DL (0.0-1.0)
--- NOTE | 2017-09-11 08:55 | Nephrology Progress Note ---
Assessment/Plan Problem List: (1) Hypernatremia Assessment: slightly better (2) Acute renal failure Assessment: no change (3) Episode of generalized weakness Plan IVF follow BMP, Phos, PTH Discussed with Dr St Discussed with resident care assistant check renal US Subjective Subjective In NAD Objective Objective Last 24 Hour Vital Signs Date Time Temp Pulse Resp B/P (MAP) Pulse Ox O2 Delivery O2 Flow Rate FiO2 09/11/17 04:00 98.8 109 18 127/60 97 Room Air 09/11/17 04:00 105 09/11/17 00:00 99.7 100 18 145/57 95 Room Air 09/11/17 00:00 96 09/10/17 20:07 104 144/77 09/10/17 20:00 98.2 104 24 144/77 94 Room Air 09/10/17 20:00 104 09/10/17 16:00 97.4 85 20 136/69 96 Room Air 09/10/17 16:00 78 09/10/17 12:00 98.4 86 18 128/66 97 Room Air 09/10/17 12:00 88 09/10/17 09:27 105 144/62 09/10/17 09:26 105 144/62 Intake and Output 09/10/17 09/11/17 19:00 07:00 Intake Total 425 ml 325 ml Output Total 550 ml 450 ml Balance -125 ml -125 ml Intake Oral 50 ml 200 ml IV Total 375 ml 125 ml Output Urine Total 550 ml 450 ml # Bowel Movements 1 Laboratory Tests 09/10/17 12:10: Sodium Level 154H, Potassium Level 4.1, Chloride Level 122H, Carbon Dioxide Level 24, Anion Gap 8, Blood Urea Nitrogen 67H, Creatinine 2.0H, Estimat Glomerular Filtration Rate , Glucose Level 102, Calcium Level 9.0 09/10/17 17:45: Sodium Level 152H, Potassium Level 4.1, Chloride Level 117H, Carbon Dioxide Level 27, Anion Gap 9, Blood Urea Nitrogen 61H, Creatinine 1.9H, Estimat Glomerular Filtration Rate , Glucose Level 119H, Calcium Level 9.0, White Blood Count 8.4, Red Blood Count 4.02L, Hemoglobin 13.2L, Hematocrit 41.5L, Mean Corpuscular Volume 103H, Mean Corpuscular Hemoglobin 32.9H, Mean Corpuscular Hemoglobin Concent 31.9L, Red Cell Distribution Width 12.9, Platelet Count 125L , Mean Platelet Volume 10.6H, Neutrophils (%) (Auto) 67.1, Lymphocytes (%) (Auto ) 21.5, Monocytes (%) (Auto) 7.7, Eosinophils (%) (Auto) 2.9, Basophils (%) ( Auto) 0.8, Total Bilirubin 0.7, Aspartate Amino Transf (AST/SGOT) 68H, Alanine Aminotransferase (ALT/SGPT) 78, Alkaline Phosphatase 81, Total Protein 7.0, Albumin 2.8L, Globulin 4.2, Albumin/Globulin Ratio 0.7L 09/11/17 04:40: Sodium Level 151H, Potassium Level 4.0, Chloride Level 118H, Carbon Dioxide Level 25, Anion Gap 9, Blood Urea Nitrogen 50H, Creatinine 1.9H, Estimat Glomerular Filtration Rate , Glucose Level 103, Calcium Level 8.9, White Blood Count 8.5, Red Blood Count 3.98L, Hemoglobin 13.4L, Hematocrit 40.6L, Mean Corpuscular Volume 102H, Mean Corpuscular Hemoglobin 33.6H, Mean Corpuscular Hemoglobin Concent 33.0, Red Cell Distribution Width 12.9, Platelet Count 130L, Mean Platelet Volume 10.4H, Neutrophils (%) (Auto) 68.8, Lymphocytes (%) (Auto) 20.4, Monocytes (%) (Auto) 7.9, Eosinophils (%) (Auto) 2.4, Basophils (%) (Auto ) 0.6, Thyroid Stimulating Hormone (TSH) 0.019L 09/11/17 08:00: Urine Color Pale yellow, Urine Appearance Clear, Urine pH 6.5, Urine Specific [place] 1.010, Urine Protein 2+H, Urine Glucose (UA) Negative, Urine Ketones Negative, Urine Occult Blood 3+H, Urine Nitrite Negative, Urine Bilirubin Negative, Urine Urobilinogen Normal, Urine Leukocyte Esterase Negative, Urine RBC [Pending], Urine WBC [Pending], Urine Squamous Epithelial Cells [Pending], Urine Bacteria [Pending] Height (Feet): 5 Height (Inches): 6.00 Weight (Pounds): 110 Cardiovascular: normal rate Respiratory/Chest: lungs clear Extremities: other - no edema MARYA KENDALL Sep 11, 2017 08:55
[2017-09-11] MEDS: Docusate 100mg cap ORAL SCH ×2 (09:04→20:49)
[2017-09-11] MEDS: Lactobacillus-GG tablet ORAL SCH ×2 (09:04→18:24)
[2017-09-11] MEDS: Metoprolol 25mg tab ORAL SCH ×2 (09:04→20:50)
[2017-09-11] MEDS: Aspirin Baby 81mg ORAL SCH (09:04)
[2017-09-11] MEDS: Nystatin Susp 500,000 units/5ml ORAL SCH ×3 (09:05→18:24)
[2017-09-11] MEDS: Thiamine 100mg tab ORAL SCH (09:05)
[2017-09-11] MEDS: Heparin 5000 units/ml inj SUBQ SCH ×2 (09:06→20:51)
--- NOTE | 2017-09-11 11:38 | Diagnostic Imaging Report ---
APPROVED REPORT CPT Code: 82391 Present Symptoms Lower Extremity Pain: Bilateral BILATERAL: Imaging reveals a patent deep venous system bilaterally. There is no evidence of thrombus within the femoral, popliteal or tibial segments. The greater saphenous veins are also within normal limits. Doppler indicates normal spontaneous flow within these segments.
[2017-09-11 12:00] VITALS: BP_SYST 137; BP_SYST 140; BP_DIAS 66; BP_DIAS 69
--- NOTE | 2017-09-11 12:03 | Wound Care Consultation ---
Wound Assessment Wound Assessment #1: Wound Number: 1 Wound Present on Admission: Yes New Wound: No Status Change of Wound: No Wound Location Body Site: other - sacrococcygeal area extending to left and right Wound Type: pressure ulcer Alonso Test: Does not Alonso Pressure Ulcer Stage: III - scattered unstageable pressure ulcers appearing stage 3 as of now ,surrounding tissue noted with deep maroon color, at risk for further skin breakdown. Wound Thickness: Full Thickness Wound Length: 10.0 - scattered Wound Width: 13.0 - scattered Wound Depth: utd Percent of Wound [place]/Red: 30 Percent of Wound Bed Yellow/Wh: 40 Percent of Wound Purple/Maroon: 30 Wound Drainage Description: Serosanguineous Wound Drainage Amount: Moderate Wound Drainage Odor: None/Absent Tissue Surrounding Wound: Macerated Wound General Appearance: Reddened, Draining, Necrotic - yellow, maroon Wound Assessment #2: Wound Number: 2 Wound Present on Admission: Yes New Wound: No Status Change of Wound: No Wound Location Body Site Modif: left Wound Location Body Site: heel Wound Type: pressure ulcer Alonso Test: Does not Alonso Pressure Ulcer Stage: Deep Tissue Injury Wound Thickness: Full Thickness Wound Length: 8.0 Wound Width: 8.0 Wound Depth: utd Percent of Wound Purple/Maroon: 100 Wound Drainage Amount: None Wound Drainage Odor: None/Absent Tissue Surrounding Wound: boggy, erythemic Wound General Appearance: Reddened - deep maroon, boggy Wound Comment #1 sacrococcygeal scattered unstageable ulcers appearing stage 3 as of now- surrounding tissue noted with maroon color, at risk for further skin breakdown. #2 left heel deep tissue injury Recommendation -Local wound care per protocol. - Turn and reposition. -Offload affected areas. -Keep clean and dry. -Optimize nutrition. -Apply low air loss mattress for wound and skin management. -Heel protectors. -Assess and notify MD for any further change of condition to skin noted. GRAY CARBAJAL Sep 11, 2017 12:03
[2017-09-11] MEDS ORDERED: Depakote 500mg tab ORAL SCH (13:00)
--- NOTE | 2017-09-11 14:48 | Diagnostic Imaging Report ---
Indication: Abnormal renal function tests Technique: Grayscale and duplex images of the kidneys, retroperitoneum, and bladder were obtained. Comparison: none Findings: Right kidney measures 10.6 cm in length. Left kidney measures 9.9 cm in length. Both kidneys demonstrates slightly increased echogenicity. No hydronephrosis. There are bilateral renal cysts, including a large 6.2 cm diameter right renal cyst.. Normal inferior vena cava. Bladder is nearly empty, contains a Mack catheter. Impression: Slightly increased renal echogenicity, could indicate medical renal disease Negative for hydronephrosis Empty bladder with a Mack catheter Incidental finding bilateral renal cysts.
[2017-09-11 16:00] VITALS: BP 140/69
--- NOTE | 2017-09-11 16:49 | General Progress Note ---
Assessment/Plan Assessment/Plan dehration renal failure hypernatremia urinary obstruction dementia ho alcoholism fluids nephrolgy fup has rasmussen urolgy fup monitor labs gi eval dr lopez called swallow2 study ordered dvt and ulcer prophylaxis pt/ot Subjective Allergies: Coded Allergies: MORPHINE (Verified Allergy, Unknown, 09/08/17) Subjective more alert, problem with swalllowing no chest pain or sob doens talk much Objective Last 24 Hour Vital Signs Date Time Temp Pulse Resp B/P (MAP) Pulse Ox O2 Delivery O2 Flow Rate FiO2 09/11/17 12:00 86 09/11/17 09:05 105 127/60 09/11/17 09:04 105 127/60 09/11/17 08:00 100 09/11/17 08:00 98.1 100 20 115/64 95 Room Air 09/11/17 04:00 98.8 109 18 127/60 97 Room Air 09/11/17 04:00 105 09/11/17 00:00 99.7 100 18 145/57 95 Room Air 09/11/17 00:00 96 09/10/17 20:07 104 144/77 09/10/17 20:00 98.2 104 24 144/77 94 Room Air 09/10/17 20:00 104 Intake and Output 09/10/17 09/11/17 19:00 07:00 Intake Total 425 ml 325 ml Output Total 550 ml 450 ml Balance -125 ml -125 ml Intake Oral 50 ml 200 ml IV Total 375 ml 125 ml Output Urine Total 550 ml 450 ml # Bowel Movements 1 Laboratory Tests 09/10/17 17:45: White Blood Count 8.4, Red Blood Count 4.02L, Hemoglobin 13.2L, Hematocrit 41.5L , Mean Corpuscular Volume 103H, Mean Corpuscular Hemoglobin 32.9H, Mean Corpuscular Hemoglobin Concent 31.9L, Red Cell Distribution Width 12.9, Platelet Count 125L, Mean Platelet Volume 10.6H, Neutrophils (%) (Auto) 67.1, Lymphocytes (%) (Auto) 21.5, Monocytes (%) (Auto) 7.7, Eosinophils (%) (Auto) 2.9, Basophils (%) (Auto) 0.8, Sodium Level 152H, Potassium Level 4.1, Chloride Level 117H, Carbon Dioxide Level 27, Anion Gap 9, Blood Urea Nitrogen 61H, Creatinine 1.9H, Estimat Glomerular Filtration Rate , Glucose Level 119H, Calcium Level 9.0, Total Bilirubin 0.7, Aspartate Amino Transf (AST/SGOT) 68H, Alanine Aminotransferase (ALT/SGPT) 78, Alkaline Phosphatase 81, Total Protein 7.0, Albumin 2.8L, Globulin 4.2, Albumin/Globulin Ratio 0.7L 09/11/17 04:40: White Blood Count 8.5, Red Blood Count 3.98L, Hemoglobin 13.4L, Hematocrit 40.6L , Mean Corpuscular Volume 102H, Mean Corpuscular Hemoglobin 33.6H, Mean Corpuscular Hemoglobin Concent 33.0, Red Cell Distribution Width 12.9, Platelet Count 130L, Mean Platelet Volume 10.4H, Neutrophils (%) (Auto) 68.8, Lymphocytes (%) (Auto) 20.4, Monocytes (%) (Auto) 7.9, Eosinophils (%) (Auto) 2.4, Basophils (%) (Auto) 0.6, Sodium Level 151H, Potassium Level 4.0, Chloride Level 118H, Carbon Dioxide Level 25, Anion Gap 9, Blood Urea Nitrogen 50H, Creatinine 1.9H, Estimat Glomerular Filtration Rate , Glucose Level 103, Calcium Level 8.9, Thyroid Stimulating Hormone (TSH) 0.020L, Free Thyroxine 1.69H, Free Triiodothyronine 3.3, Thyroid Stimulating Immunoglobulin [Pending] 09/11/17 08:00: Urine Color Pale yellow, Urine Appearance Clear, Urine pH 6.5, Urine Specific [place] 1.010, Urine Protein 2+H, Urine Glucose (UA) Negative, Urine Ketones Negative, Urine Occult Blood 3+H, Urine Nitrite Negative, Urine Bilirubin Negative, Urine Urobilinogen Normal, Urine Leukocyte Esterase Negative, Urine RBC 0-2H, Urine WBC 10-15H, Urine Squamous Epithelial Cells Occasional, Urine Bacteria Occasional Height (Feet): 5 Height (Inches): 6.00 Weight (Pounds): 110 General Appearance: WD/WN Neck: supple Cardiovascular: normal rate Respiratory/Chest: lungs clear Abdomen: soft Objective ncat peerla temporal wasting mouth moist mucous membrane YANET MEDELLIN Sep 11, 2017 16:49
--- NOTE | 2017-09-11 17:25 | Physician Query ---
--------- THIS DOCUMENT IS A PERMANENT PART OF THE MEDICAL RECORD --------- PLEASE COMPLETE DOCUMENT BEFORE SIGNING Dear Dr. Parry Date: _09/11/2017 [employer]/CDS Name: _Lashaun Hernandez MD___ [employer]/CDS Phone No.: _Ext. [phone]___ ___ Exercise your independent professional judgment when responding to the query. Questions asked do not imply a particular answer is desired or expected. We greatly appreciate your clarification on this issue. CLINICAL DOCUMENTATION STATES: "Pressure Ulcer Stage: III - scattered unstageable pressure ulcers appearing stage 3 as of now" as per Wound Consultation Note on 09/11/2017 Condition Present on Admission: [ ] Yes [ ] No Please also document in your Progress Notes and/or Discharge Summary and indicate if the condition was present on admission. YANET MEDELLIN M.D. Date & Time [facility]
--- NOTE | 2017-09-11 18:14 | Consultation ---
History of Present Illness General Date patient seen: Sep 11, 2017 Time patient seen: 18:05 Chief Complaint: Generalized Weakness Referring physician: Dr. Walker Reason for Consultation: Buttock ulcers Present Illness HPI Asked to evaluate this 81 yom who was [place] [facility]. Upon admission he was noted to have bilateral medial buttock ulcers and a left heel bruise. Per his caregiver he was ambulatory until 07/30 when he was admitted to the hospital. He has become debilitated in the time interval since. He has had the ulcers for several weeks. He has an air mattress at home. He has lost weight recently per his caregiver. He also has difficulty swallowing which affects his PO intake. Allergies: Coded Allergies: MORPHINE (Verified Allergy, Unknown, 09/08/17) Medication History Scheduled Amlodipine Besylate* (Amlodipine Besylate*), 2.5 MG ORAL DAILY, (Reported) Aspirin* (Aspir 81*), 81 MG ORAL DAILY, (Reported) Atorvastatin Calcium* (Atorvastatin Calcium*), 40 MG ORAL DAILY, (Reported) Balsam Fabian/[place] Oil (Venelex Ointment), 60 GM TP QID, (Reported) Clopidogrel* (Clopidogrel*), 75 MG ORAL DAILY, (Reported) Docusate Sodium* (Docusate Sodium*), 100 MG ORAL TWICE A DAY, (Reported) Folic Acid* (Folic Acid*), 1 MG ORAL DAILY, (Reported) Lactobacillus Rhamnosus GG (Culturelle), 1 TAB ORAL BID, (Reported) Mag Hydrox/Al Hydrox/Simeth (Alum-Mag Hydroxide-Simeth Liq), 360 ML PO Q4HR, ( Reported) Magnesium Hydroxide* (Milk Of Magnesia*), 30 ML ORAL DAILY, (Reported) Metoprolol Tartrate* (Metoprolol Tartrate*), 25 MG ORAL EVERY 12 HOURS, ( Reported) Multivitamin With Minerals (Multivitamins With Minerals*), 1 TAB ORAL DAILY, ( Reported) Nystatin* (Nystatin*), 10 ML ORAL THREE TIMES A DAY, (Reported) Pantoprazole* (Pantoprazole*), 40 MG ORAL DAILY, (Reported) Thiamine Hcl* (Vitamin B-1*), 100 MG ORAL DAILY, (Reported) Scheduled PRN Ranitidine Hcl* (Zantac*), 150 MG ORAL DAILY PRN for PRN, (Reported) Discontinued Medications Acetaminophen* (Tylenol Extra Strength*), 325 MG ORAL Q6H PRN for Mild Pain/ Temp > 100.5, (Reported) Discontinued Reason: Pt stopped taking med Amoxicillin/Potassium Clav 500-125 Tablet* (Augmentin 500-125 Tablet*), 1 TAB ORAL BID, (Reported) Discontinued Reason: Therapy completed Patient History Limited by: medical condition History Provided By: Medical Record, Caregiver Healthcare decision maker Resuscitation status Full Code Advanced Directive on File Review of Systems Constitutional: Reports: weakness Eye: Reports: no symptoms ENT: Reports: no symptoms Respiratory: Reports: no symptoms Cardiovascular: Reports: no symptoms Gastrointestinal: Reports: no symptoms Genitourinary: Reports: retention Skin: Reports: see HPI Physical Exam General Appearance: no apparent distress, lethargic, cachetic Lines, tubes and drains: peripheral, rasmussen cath HEENT: normocephalic Respiratory/Chest: no respiratory distress Cardiovascular/Chest: normal peripheral pulses, normal rate, regular rhythm Abdomen: non tender, soft Extremities: no edema Skin Exam: other - Right medial buttock with stage 2 pressure ulcer, pink granular base. Periskin in god condition with no crepitus erythema, warmth, or fluctuance. Left medial buttock with stage 2 pressure ulcer with clean base. Left heel with small bruise. No open wound. Last 24 Hour Vital Signs Date Time Temp Pulse Resp B/P (MAP) Pulse Ox O2 Delivery O2 Flow Rate FiO2 09/11/17 12:00 86 09/11/17 09:05 105 127/60 09/11/17 09:04 105 127/60 09/11/17 08:00 100 09/11/17 08:00 98.1 100 20 115/64 95 Room Air 09/11/17 04:00 98.8 109 18 127/60 97 Room Air 09/11/17 04:00 105 09/11/17 00:00 99.7 100 18 145/57 95 Room Air 09/11/17 00:00 96 09/10/17 20:07 104 144/77 09/10/17 20:00 98.2 104 24 144/77 94 Room Air 09/10/17 20:00 104 Intake and Output 09/10/17 09/11/17 19:00 07:00 Intake Total 425 ml 325 ml Output Total 550 ml 450 ml Balance -125 ml -125 ml Intake Oral 50 ml 200 ml IV Total 375 ml 125 ml Output Urine Total 550 ml 450 ml # Bowel Movements 1 Laboratory Tests Test 09/11/17 04:40 09/11/17 08:00 White Blood Count 8.5 K/UL (4.8-10.8) Red Blood Count 3.98 M/UL (4.70-6.10) L Hemoglobin 13.4 G/DL (14.2-18.0) L Hematocrit 40.6 % (42.0-52.0) L Mean Corpuscular Volume 102 FL (80-99) H Mean Corpuscular Hemoglobin 33.6 PG (27.0-31.0) H Mean Corpuscular Hemoglobin Concent 33.0 G/DL (32.0-36.0) Red Cell Distribution Width 12.9 % (11.6-14.8) Platelet Count 130 K/UL (150-450) L Mean Platelet Volume 10.4 FL (6.5-10.1) H Neutrophils (%) (Auto) 68.8 % (45.0-75.0) Lymphocytes (%) (Auto) 20.4 % (20.0-45.0) Monocytes (%) (Auto) 7.9 % (1.0-10.0) Eosinophils (%) (Auto) 2.4 % (0.0-3.0) Basophils (%) (Auto) 0.6 % (0.0-2.0) Sodium Level 151 MMOL/L (136-145) H Potassium Level 4.0 MMOL/L (3.5-5.1) Chloride Level 118 MMOL/L (98-107) H Carbon Dioxide Level 25 MMOL/L (21-32) Anion Gap 9 mmol/L (5-15) Blood Urea Nitrogen 50 mg/dL (7-18) H Creatinine 1.9 MG/DL (0.55-1.30) H Estimat Glomerular Filtration Rate mL/min (>60) Glucose Level 103 MG/DL (74-106) Calcium Level 8.9 MG/DL (8.5-10.1) Thyroid Stimulating Hormone (TSH) 0.020 uiU/mL (0.358-3.740) Free Thyroxine 1.69 NG/DL (0.76-1.46) H Free Triiodothyronine 3.3 pg/mL (2.3-4.2) Thyroid Stimulating Immunoglobulin Pending Urine Color Pale yellow Urine Appearance Clear Urine pH 6.5 (4.5-8.0) Urine Specific [place] 1.010 (1.005-1.035) Urine Protein 2+ (NEGATIVE) H Urine Glucose (UA) Negative (NEGATIVE) Urine Ketones Negative (NEGATIVE) Urine Occult Blood 3+ (NEGATIVE) H Urine Nitrite Negative (NEGATIVE) Urine Bilirubin Negative (NEGATIVE) Urine Urobilinogen Normal MG/DL (0.0-1.0) Urine Leukocyte Esterase Negative (NEGATIVE) Urine RBC 0-2 /HPF (0 - 0) H Urine WBC 10-15 /HPF (0 - 0) H Urine Squamous Epithelial Cells Occasional /LPF Urine Bacteria Occasional /HPF (NONE) Height (Feet): 5 Height (Inches): 6.00 Weight (Pounds): 110 Medications Current Medications Medications (Trade) Dose Ordered Sig/Elvia Route PRN Reason Start Time Stop Time Status Last Admin Dose Admin Acetaminophen (Tylenol) 650 mg Q4H PRN ORAL Mild Pain (Pain Scale 1-3) 09/08/17 23:15 10/08/17 23:14 Acetaminophen (Tylenol) 650 mg Q4H PRN ORAL fever 09/08/17 23:15 10/08/17 23:14 Amlodipine Besylate (Norvasc) 2.5 mg DAILY ORAL 09/09/17 09:00 10/09/17 08:59 09/11/17 09:05 Aspirin (ASA) 81 mg DAILY ORAL 09/09/17 09:00 10/09/17 08:59 09/11/17 09:04 Atorvastatin Calcium (Lipitor) 40 mg BEDTIME ORAL 09/09/17 21:00 10/09/17 20:59 09/10/17 20:07 Clopidogrel Bisulfate (Plavix) 75 mg DAILY ORAL 09/09/17 09:00 10/09/17 08:59 09/11/17 09:05 Dextrose 1,000 ml @ 125 mls/hr Q8H IV 09/09/17 00:11 10/09/17 00:10 09/11/17 15:57 Dextrose (Dextrose 50%) STAT PRN IV Hypoglycemia 09/08/17 23:15 10/08/17 23:14 Docusate Sodium (Colace) 100 mg EVERY 12 HOURS ORAL 09/09/17 09:00 10/09/17 08:59 09/11/17 09:04 Folic Acid (Folate) 1 mg DAILY ORAL 09/09/17 09:00 10/09/17 08:59 09/11/17 09:04 Heparin Sodium (Porcine) (Heparin 5000 units/ml) 5,000 units EVERY 12 HOURS SUBQ 09/09/17 09:00 10/09/17 08:59 09/11/17 09:06 Lactobacillus Acidophilus (Culturelle) 1 tab TWICE A DAY ORAL 09/09/17 09:00 10/09/17 08:59 09/11/17 09:04 Magnesium Hydroxide (Mom) 30 ml HSPRN PRN ORAL Constipation 09/08/17 23:15 10/08/17 23:14 Metoprolol Tartrate (Lopressor) 25 mg EVERY 12 HOURS ORAL 09/09/17 09:00 10/09/17 08:59 09/11/17 09:04 Multivitamins (Multivitamins) 1 tab DAILY ORAL 09/09/17 09:00 10/09/17 08:59 09/11/17 09:04 Nystatin (Nystatin) 5 ml THREE TIMES A DAY ORAL 09/09/17 09:00 09/16/17 08:59 09/11/17 13:14 Pantoprazole (Protonix) 40 mg ACBREAKFAST ORAL 09/09/17 06:30 10/09/17 06:29 09/11/17 07:00 Thiamine HCl (Vitamin B1) 100 mg DAILY ORAL 09/09/17 09:00 10/09/17 08:59 09/11/17 09:05 Assessment/Plan Status: stable Assessment/Plan Patient with stage 2 pressure ulcers of b/l medial buttocks and left heel DSTI. He likely has low nutrition given his weight loss and his cachectic appearance. He is being evaluated by GI for swallow study. Rocha in this patient is offloading and proper padding of bony prominences. His wound culture was + for MRSA and so will start bactroban ointment to the buttock wounds. Once the patient is discharged to home, can arrange follow up at the outpatient wound care center at [place] for continuity of care. Thank you for allowing me to participate in this patient's care. MARIA D WATSON Sep 11, 2017 18:14
--- NOTE | 2017-09-11 19:30 | Consultation ---
DATE OF CONSULTATION: 09/11/2017 GASTROENTEROLOGY CONSULTATION CONSULTING PHYSICIAN: Harrison St M.D. REFERRING PHYSICIAN: Quintin Walker M.D. CHIEF COMPLAINT: I was asked to see this patient by Dr. Quintin Walker for evaluation of nutritional issues. HISTORY OF PRESENT ILLNESS: The patient is an unfortunate 81-year-old white male with past history of alcoholism, recent admission to an outside hospital, who was brought in to [facility] due to generalized weakness and failure to thrive. The patient had some degree of confusion and decreased urine output. When evaluated in the emergency room, he was found to have profound hypernatremia with renal failure and volume depletion. He also has some degree of cachexia and loss of muscle mass. The patient himself is arousable, but essentially noncommunicative and unable to provide any history. The cancer registry coordinator is at bedside and states that the patient has been having difficulty eating as an outpatient. He eats very little and sometimes, he chokes when he eats. 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 ALLERGIES: Morphine. SOCIAL HISTORY: The patient resides at home with a caregiver. He does not smoke or drink at this time, although he has had past history of alcoholism. FAMILY HISTORY: Noncontributory. REVIEW OF SYSTEMS: Otherwise negative. PHYSICAL EXAMINATION: GENERAL: A debilitated, thin white man seen in his room. His cancer registry coordinator at bedside. HEENT: Normocephalic, atraumatic. There is some degree of temporal wasting. NECK: Supple. CHEST: Clear to auscultation. CARDIOVASCULAR: Regular rate. ABDOMEN: Soft with good bowel sounds. EXTREMITIES: Revealed no edema. LABORATORY AND DIAGNOSTIC DATA: Noted. ASSESSMENT: This patient presents with altered mental status and also some degree of underlying dementia. He is unable to eat safely and also his oral intake is poor, which explains the current presentation with hypernatremia and dehydration. His metabolic parameters are being corrected with IV fluids, but the patient remains cachectic and malnourished. I have placed a call to Emily Belle, whose name is on the hospital case sheets and a responsible constitution party. I will have to determine if there is a next-of-kin involved in order to discuss the long-term nutritional management. In the meantime, a nasogastric tube can be placed to give some nutrition and to avoid further nutritional compromise. RECOMMENDATIONS: 1. Continue IV fluids. 2. Monitor laboratory parameters. 3. Nasogastric tube placement. 4. Nasogastric tube feeding. 5. Monitor nutritional parameters. Thank you for asking me to participate in the care of this patient. Harrison St M.D. DR: TRINIDAD JOB#: [id number] CC:
[2017-09-11 20:00] VITALS: BP 126/58
[2017-09-11] MEDS: Atorvastatin 20mg tab ORAL SCH (20:49)
--- NOTE | 2017-09-11 21:11 | General Progress Note ---
Assessment/Plan Problem List: (1) Hyperthyroidism ICD Codes: E05.90 - Thyrotoxicosis, unspecified without thyrotoxic crisis or storm SNOMED: 70596980 (2) Episode of generalized weakness ICD Codes: R53.1 - Weakness SNOMED: 79245836 (3) Hypernatremia ICD Codes: E87.0 - Hyperosmolality and hypernatremia SNOMED: 16620015 (4) Dehydration ICD Codes: E86.0 - Dehydration SNOMED: 19561113 (5) Urinary obstruction ICD Codes: N13.9 - Obstructive and reflux uropathy, unspecified SNOMED: 6149502 (6) Acute renal failure ICD Codes: N17.9 - Acute kidney failure, unspecified SNOMED: 27199187 Assessment/Plan hyperthyroidism confirmed: suppressed TSH and elevated free T4 - start Tapazole 10 mg daily - follow ATPO and TSI - repeat thyroid function in one month Subjective ROS Limited/Unobtainable: Yes Allergies: Coded Allergies: MORPHINE (Verified Allergy, Unknown, 09/08/17) Subjective hx taken from chart review no hx of thyroid disease presented with generalized weakness and poor oral intake TSH suppressed on admission I ordered repeat TSH along with free T4 and free T3 this morning TSI and ATPO ordered as well repeat TSH is suppressed and free T4 is elevated Objective Last 24 Hour Vital Signs Date Time Temp Pulse Resp B/P (MAP) Pulse Ox O2 Delivery O2 Flow Rate FiO2 09/11/17 20:50 89 140/69 09/11/17 16:00 98.1 89 20 140/69 96 Room Air 09/11/17 16:00 89 09/11/17 12:00 86 09/11/17 12:00 97.9 89 20 137/66 96 Room Air 09/11/17 09:05 105 127/60 09/11/17 09:04 105 127/60 09/11/17 08:00 100 09/11/17 08:00 98.1 100 20 115/64 95 Room Air 09/11/17 04:00 98.8 109 18 127/60 97 Room Air 09/11/17 04:00 105 09/11/17 00:00 99.7 100 18 145/57 95 Room Air 09/11/17 00:00 96 Intake and Output 09/10/17 09/11/17 19:00 07:00 Intake Total 425 ml 325 ml Output Total 550 ml 450 ml Balance -125 ml -125 ml Intake Oral 50 ml 200 ml IV Total 375 ml 125 ml Output Urine Total 550 ml 450 ml # Bowel Movements 1 Laboratory Tests 09/11/17 04:40: White Blood Count 8.5, Red Blood Count 3.98L, Hemoglobin 13.4L, Hematocrit 40.6L , Mean Corpuscular Volume 102H, Mean Corpuscular Hemoglobin 33.6H, Mean Corpuscular Hemoglobin Concent 33.0, Red Cell Distribution Width 12.9, Platelet Count 130L, Mean Platelet Volume 10.4H, Neutrophils (%) (Auto) 68.8, Lymphocytes (%) (Auto) 20.4, Monocytes (%) (Auto) 7.9, Eosinophils (%) (Auto) 2.4, Basophils (%) (Auto) 0.6, Sodium Level 151H, Potassium Level 4.0, Chloride Level 118H, Carbon Dioxide Level 25, Anion Gap 9, Blood Urea Nitrogen 50H, Creatinine 1.9H, Estimat Glomerular Filtration Rate , Glucose Level 103, Calcium Level 8.9, Thyroid Stimulating Hormone (TSH) 0.020L, Free Thyroxine 1.69H, Free Triiodothyronine 3.3, Thyroid Stimulating Immunoglobulin [Pending] 09/11/17 08:00: Urine Color Pale yellow, Urine Appearance Clear, Urine pH 6.5, Urine Specific [place] 1.010, Urine Protein 2+H, Urine Glucose (UA) Negative, Urine Ketones Negative, Urine Occult Blood 3+H, Urine Nitrite Negative, Urine Bilirubin Negative, Urine Urobilinogen Normal, Urine Leukocyte Esterase Negative, Urine RBC 0-2H, Urine WBC 10-15H, Urine Squamous Epithelial Cells Occasional, Urine Bacteria Occasional Height (Feet): 5 Height (Inches): 6.00 Weight (Pounds): 110 General Appearance: no apparent distress Neck: normal alignment Cardiovascular: normal rate Respiratory/Chest: lungs clear Abdomen: normal bowel sounds Extremities: normal range of motion Objective Current Medications Medications (Trade) Dose Ordered Sig/Elvia Route PRN Reason Start Time Stop Time Status Last Admin Dose Admin Acetaminophen (Tylenol) 650 mg Q4H PRN ORAL Mild Pain (Pain Scale 1-3) 09/08/17 23:15 10/08/17 23:14 Acetaminophen (Tylenol) 650 mg Q4H PRN ORAL fever 09/08/17 23:15 10/08/17 23:14 Amlodipine Besylate (Norvasc) 2.5 mg DAILY ORAL 09/09/17 09:00 10/09/17 08:59 09/11/17 09:05 Aspirin (ASA) 81 mg DAILY ORAL 09/09/17 09:00 10/09/17 08:59 09/11/17 09:04 Atorvastatin Calcium (Lipitor) 40 mg BEDTIME ORAL 09/09/17 21:00 10/09/17 20:59 09/11/17 20:49 Clopidogrel Bisulfate (Plavix) 75 mg DAILY ORAL 09/09/17 09:00 10/09/17 08:59 09/11/17 09:05 Dextrose 1,000 ml @ 125 mls/hr Q8H IV 09/09/17 00:11 10/09/17 00:10 09/11/17 15:57 Dextrose (Dextrose 50%) STAT PRN IV Hypoglycemia 09/08/17 23:15 10/08/17 23:14 Docusate Sodium (Colace) 100 mg EVERY 12 HOURS ORAL 09/09/17 09:00 10/09/17 08:59 09/11/17 20:49 Folic Acid (Folate) 1 mg DAILY ORAL 09/09/17 09:00 10/09/17 08:59 09/11/17 09:04 Heparin Sodium (Porcine) (Heparin 5000 units/ml) 5,000 units EVERY 12 HOURS SUBQ 09/09/17 09:00 10/09/17 08:59 09/11/17 09:06 Lactobacillus Acidophilus (Culturelle) 1 tab TWICE A DAY ORAL 09/09/17 09:00 10/09/17 08:59 09/11/17 18:24 Magnesium Hydroxide (Mom) 30 ml HSPRN PRN ORAL Constipation 09/08/17 23:15 10/08/17 23:14 Metoprolol Tartrate (Lopressor) 25 mg EVERY 12 HOURS ORAL 09/09/17 09:00 10/09/17 08:59 09/11/17 20:50 Multivitamins (Multivitamins) 1 tab DAILY ORAL 09/09/17 09:00 10/09/17 08:59 09/11/17 09:04 Nystatin (Nystatin) 5 ml THREE TIMES A DAY ORAL 09/09/17 09:00 09/16/17 08:59 09/11/17 18:24 Pantoprazole (Protonix) 40 mg ACBREAKFAST ORAL 09/09/17 06:30 10/09/17 06:29 09/11/17 07:00 Thiamine HCl (Vitamin B1) 100 mg DAILY ORAL 09/09/17 09:00 10/09/17 08:59 09/11/17 09:05 CASSIDY SANDOVAL Sep 11, 2017 21:11
--- NOTE | 2017-09-11 21:52 | Neurology Progress Note ---
Interim History Interim History Interim History Mr. Cordova continues to feels better. He continues to be brighter. He continues to be cognitively impoverished. He continues to be motorically challenged. The left ankle is less painful. He denies any new neurologic symptoms. Review of Systems Neuro Review of Systems Unable to obtain. Objective Physical Exam Last Vital Signs Date Time Temp Pulse Resp B/P (MAP) Pulse Ox O2 Delivery O2 Flow Rate FiO2 09/11/17 20:50 89 140/69 09/11/17 16:00 98.1 20 96 Room Air Laboratory Tests Test 09/11/17 04:40 09/11/17 08:00 White Blood Count 8.5 K/UL (4.8-10.8) Red Blood Count 3.98 M/UL (4.70-6.10) L Hemoglobin 13.4 G/DL (14.2-18.0) L Hematocrit 40.6 % (42.0-52.0) L Mean Corpuscular Volume 102 FL (80-99) H Mean Corpuscular Hemoglobin 33.6 PG (27.0-31.0) H Mean Corpuscular Hemoglobin Concent 33.0 G/DL (32.0-36.0) Red Cell Distribution Width 12.9 % (11.6-14.8) Platelet Count 130 K/UL (150-450) L Mean Platelet Volume 10.4 FL (6.5-10.1) H Neutrophils (%) (Auto) 68.8 % (45.0-75.0) Lymphocytes (%) (Auto) 20.4 % (20.0-45.0) Monocytes (%) (Auto) 7.9 % (1.0-10.0) Eosinophils (%) (Auto) 2.4 % (0.0-3.0) Basophils (%) (Auto) 0.6 % (0.0-2.0) Sodium Level 151 MMOL/L (136-145) H Potassium Level 4.0 MMOL/L (3.5-5.1) Chloride Level 118 MMOL/L (98-107) H Carbon Dioxide Level 25 MMOL/L (21-32) Anion Gap 9 mmol/L (5-15) Blood Urea Nitrogen 50 mg/dL (7-18) H Creatinine 1.9 MG/DL (0.55-1.30) H Estimat Glomerular Filtration Rate mL/min (>60) Glucose Level 103 MG/DL (74-106) Calcium Level 8.9 MG/DL (8.5-10.1) Thyroid Stimulating Hormone (TSH) 0.020 uiU/mL (0.358-3.740) Free Thyroxine 1.69 NG/DL (0.76-1.46) H Free Triiodothyronine 3.3 pg/mL (2.3-4.2) Thyroid Stimulating Immunoglobulin Pending Urine Color Pale yellow Urine Appearance Clear Urine pH 6.5 (4.5-8.0) Urine Specific [place] 1.010 (1.005-1.035) Urine Protein 2+ (NEGATIVE) H Urine Glucose (UA) Negative (NEGATIVE) Urine Ketones Negative (NEGATIVE) Urine Occult Blood 3+ (NEGATIVE) H Urine Nitrite Negative (NEGATIVE) Urine Bilirubin Negative (NEGATIVE) Urine Urobilinogen Normal MG/DL (0.0-1.0) Urine Leukocyte Esterase Negative (NEGATIVE) Urine RBC 0-2 /HPF (0 - 0) H Urine WBC 10-15 /HPF (0 - 0) H Urine Squamous Epithelial Cells Occasional /LPF Urine Bacteria Occasional /HPF (NONE) Neurologic Exam Objective PHYSICAL EXAMINATION: GENERAL: He is a well-developed but lean and ill-looking gentleman lying in bed, in no acute distress. HEAD: Normocephalic and atraumatic. NECK: No neck rigidity was observed. EENT: Examination benign. NEUROLOGICAL EXAMINATION: MENTAL STATUS EXAMINATION: He was awake and alert. He was oriented to self only. He had no idea where he was or what the date was. He was able to recall 3/3 words immediately, but could not remember any of them in 1 minute and 3 minutes. He was unable to tell me who the present president was and who prior presidents were. His mathematical skills were impaired. His visuospatial function was also impaired. SPEECH: He had a mild dysarthria. LANGUAGE: He had problems with comprehension, repetition, naming, and expression of language. CRANIAL NERVE EXAMINATION: II: The visual miller were difficult to test because of his inability to cooperate. He did, however, blink to threat in all miller. He made numerous errors when he was made to count fingers. III, IV & : The external ocular movements were full, and the pupils 3 mm in diameter, equal, round, regular, and reactive to light. V: He had normal facial sensations and the temporales, masseters, and pterygoids functioned normally. VII: He had a trace right 7th central facial paresis. VIII: He was able to hear, and had no nystagmus. IX: The palate moved symmetrically on phonation. X: He had no hoarseness of voice. XI: The sternocleidomastoids and trapezii functioned normally. XII: The tongue was in the midline without any fasciculations or atrophy. MOTOR SYSTEM: The tone was increased in all 4 extremities with a combination of spasticity and Gegenhalten. Examination of muscle mass revealed no focal wasting. Examination of power was exceedingly difficult to perform because of varying degrees of cooperation. He did, however, move all 4 extremities on command with mild distal upper extremity and proximal lower extremity weakness. SENSORY EXAMINATION: He was able to discern between pinprick and light touch. He was unable to cooperate for other sensory modalities. REFLEXES: 1+ and bilaterally symmetrical at~the biceps, triceps, brachioradialis , and knees; 0 at both ankles. The plantar responses were flexor bilaterally. COORDINATION:He was significantly apractic in both his upper and lower extremities, and was unable to perform [id number] and [id number] testing. STANCE & GAIT: Were deferred. Impression/Recommendations Diagnostic Impression 1. Mr. Aashish Cordova is an 81-year-old, right-handed, gentleman, who does have a past history of hypertension, dyslipidemia, coronary artery disease - status post percutaneous intervention, chronic kidney disease, benign prostatic hypertrophy, anemia, alcoholism, influenza type A, and a possible pneumonia, and a cognitive decline for the last year. He was hospitalized for failure to thrive. 2. He feels better today. He is brighter. He continues to be cognitively impoverished and motorically challenged. 3. On neurological examination, at this time, he does have problems with orientation, recent and remote memory, visuospatial function, higher cognitive function, and language. 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 4. His laboratory data on admission revealed that his creatinine was elevated to 2.8, his BUN was elevated to 113, his Na was elevated to 162, his Cl was elevated to 122, his HB was elevated to 18 G. 5. The patient's history, neurological examination, laboratory data are most compatible with failure to thrive due to severe dehydration due to not eating or drinking. He also has an underlying advanced dementia. Recommendations 1. Continue present management. 2. Continue correction of hypernatremia slowly. 3. Mobilize with PT/OT. SUSY BIRCE M.D., M.S.P.Tiffany. SUSY BRICE Sep 11, 2017 21:52
[2017-09-12] VITALS: BP 119/68
[2017-09-12 04:00] VITALS: BP 106/54
[2017-09-12 08:00] VITALS: BP 116/60
[2017-09-12 08:31] LABS: ANION GAP 9 mmol/L (5-15); BLOOD UREA NITROGEN 43 mg/dL (7-18); CALCIUM 9.2 MG/DL (8.5-10.1); CARBON DIOXIDE 23 MMOL/L (21-32); CHLORIDE 112 MMOL/L (98-107); CREATININE 1.7 MG/DL (0.55-1.30); PHOSPHORUS 3.1 MG/DL (2.5-4.9); POTASSIUM 4.6 MMOL/L (3.5-5.1); SODIUM 144 MMOL/L (136-145)
[2017-09-12] MEDS: Heparin 5000 units/ml inj SUBQ SCH ×2 (09:00→21:00)
[2017-09-12] MEDS ORDERED: Milk of Magnesia 30ml Ud NG PRN (09:30)
--- NOTE | 2017-09-12 10:55 | Diagnostic Imaging Report ---
Indication: Post nasogastric tube placement Technique: Supine view of the abdomen Comparison: none Findings: There is a nasogastric tube in place. The bowel gas pattern is unremarkable. There is a marked scoliotic deformity and degenerative change. There are fairly extensive arterial calcifications Impression: Satisfactory nasogastric intubation
[2017-09-12] MEDS: Docusate 100mg/10ml Liq NG SCH ×2 (11:05→22:08)
[2017-09-12] MEDS: Nystatin Susp 500,000 units/5ml ORAL SCH ×3 (11:05→18:06)
[2017-09-12] MEDS: Multivitamins W/Minerals 15 ML UDC NG SCH (11:05)
[2017-09-12] MEDS: Thiamine 100mg tab NG SCH (11:06)
[2017-09-12] MEDS: Lactobacillus-GG tablet NG SCH ×2 (11:06→18:06)
[2017-09-12] MEDS: Metoprolol 25mg tab NG SCH ×2 (11:06→22:08)
[2017-09-12] MEDS: Aspirin Baby 81mg NG SCH (11:07)
[2017-09-12 12:00] VITALS: BP 128/73
--- NOTE | 2017-09-12 12:57 | Nephrology Progress Note ---
Assessment/Plan Problem List: (1) Hypernatremia Assessment: corrected (2) Acute renal failure Assessment: better (3) Episode of generalized weakness (4) Protein-calorie malnutrition, moderate Plan TF hydrate via NG Dc IVF check PTH Discussed with manager critical care Subjective Subjective In NAD Objective Objective Last 24 Hour Vital Signs Date Time Temp Pulse Resp B/P (MAP) Pulse Ox O2 Delivery O2 Flow Rate FiO2 09/12/17 11:07 99 116/60 09/12/17 11:06 99 116/60 09/12/17 08:00 98.1 99 20 116/60 96 Room Air 09/12/17 04:00 95 09/12/17 04:00 99.4 98 20 106/54 96 Room Air 09/12/17 00:00 99.0 93 20 119/68 96 Room Air 09/12/17 00:00 99.0 93 20 119/68 96 Room Air 09/12/17 00:00 97 09/11/17 20:50 89 140/69 09/11/17 20:00 98.8 94 20 126/58 99 Room Air 09/11/17 20:00 98.8 94 20 126/58 99 Room Air 09/11/17 20:00 103 09/11/17 16:00 98.1 89 20 140/69 96 Room Air 09/11/17 16:00 89 Intake and Output 09/11/17 09/12/17 19:00 07:00 Intake Total 125 ml 1570 ml Output Total 700 ml 1100 ml Balance -575 ml 470 ml Intake Oral 320 ml IV Total 125 ml 1250 ml Output Urine Total 700 ml 1100 ml # Bowel Movements 1 Laboratory Tests 09/12/17 07:00: Sodium Level 144, Potassium Level 4.6, Chloride Level 112H, Carbon Dioxide Level 23, Anion Gap 9, Blood Urea Nitrogen 43H, Creatinine 1.7H, Estimat Glomerular Filtration Rate , Glucose Level 108H, Calcium Level 9.2, Calcium ( Send out) [Pending], Phosphorus Level 3.1, Parathyroid Hormone (Intact) [Pending ] Height (Feet): 5 Height (Inches): 6.00 Weight (Pounds): 110 Cardiovascular: normal rate Respiratory/Chest: lungs clear Extremities: other - no edema MARYA KENDALL Sep 12, 2017 12:56
[2017-09-12 16:00] VITALS: BP 130/72
--- NOTE | 2017-09-12 18:07 | General Progress Note ---
Assessment/Plan Assessment/Plan dehration renal failure hypernatremia urinary obstruction dementia ho alcoholism hyperthyrodoris fluids nephrolgy fup has rasmussen urolgy fup monitor labs dw Dr Moura started on tapazole gi eval appreciated clarence Dorado planning on gtube placement dvt and ulcer prophylaxis pt/ot clarence Feng stats symptoms from worsining dementia and encephalopathy Subjective Allergies: Coded Allergies: MORPHINE (Verified Allergy, Unknown, 09/08/17) Subjective more alert, problem with swalllowing no chest pain or sob doesnt emmie much clarence Dorado planning on gtube placement Objective Last 24 Hour Vital Signs Date Time Temp Pulse Resp B/P (MAP) Pulse Ox O2 Delivery O2 Flow Rate FiO2 09/12/17 16:00 97.0 85 20 130/72 97 Room Air 09/12/17 12:00 97.9 93 20 128/73 97 Room Air 09/12/17 11:07 99 116/60 09/12/17 11:06 99 116/60 09/12/17 08:00 98.1 99 20 116/60 96 Room Air 09/12/17 04:00 95 09/12/17 04:00 99.4 98 20 106/54 96 Room Air 09/12/17 00:00 99.0 93 20 119/68 96 Room Air 09/12/17 00:00 99.0 93 20 119/68 96 Room Air 09/12/17 00:00 97 09/11/17 20:50 89 140/69 09/11/17 20:00 98.8 94 20 126/58 99 Room Air 09/11/17 20:00 98.8 94 20 126/58 99 Room Air 09/11/17 20:00 103 Intake and Output 09/11/17 09/12/17 19:00 07:00 Intake Total 125 ml 1570 ml Output Total 700 ml 1100 ml Balance -575 ml 470 ml Intake Oral 320 ml IV Total 125 ml 1250 ml Output Urine Total 700 ml 1100 ml # Bowel Movements 1 Laboratory Tests 09/12/17 07:00: Sodium Level 144, Potassium Level 4.6, Chloride Level 112H, Carbon Dioxide Level 23, Anion Gap 9, Blood Urea Nitrogen 43H, Creatinine 1.7H, Estimat Glomerular Filtration Rate , Glucose Level 108H, Calcium Level 9.2, Calcium ( Send out) [Pending], Phosphorus Level 3.1, Parathyroid Hormone (Intact) [Pending ] Height (Feet): 5 Height (Inches): 6.00 Weight (Pounds): 110 Cardiovascular: normal rate Respiratory/Chest: lungs clear Abdomen: soft Objective ncat peerla temporal wasting mouth moist mucous membrane YANET MEDELLIN Sep 12, 2017 18:07
[2017-09-12 20:00] VITALS: BP 129/73
--- NOTE | 2017-09-12 20:13 | Neurology Progress Note ---
Interim History Interim History Interim History Mr. Cordova feels better. He continues to be brighter. He continues to be cognitively impoverished. He continues to be motorically challenged. The left ankle is less painful. He denies any new neurologic symptoms. There has been no significant improvement in his neurologic condition. Review of Systems Neuro Review of Systems Unable to obtain. Objective Physical Exam Last Vital Signs Date Time Temp Pulse Resp B/P (MAP) Pulse Ox O2 Delivery O2 Flow Rate FiO2 09/12/17 16:00 97.0 85 20 130/72 97 Room Air Laboratory Tests Test 09/12/17 07:00 Sodium Level 144 MMOL/L (136-145) Potassium Level 4.6 MMOL/L (3.5-5.1) Chloride Level 112 MMOL/L (98-107) H Carbon Dioxide Level 23 MMOL/L (21-32) Anion Gap 9 mmol/L (5-15) Blood Urea Nitrogen 43 mg/dL (7-18) H Creatinine 1.7 MG/DL (0.55-1.30) H Estimat Glomerular Filtration Rate mL/min (>60) Glucose Level 108 MG/DL (74-106) H Calcium Level 9.2 MG/DL (8.5-10.1) Calcium (Send out) Pending Phosphorus Level 3.1 MG/DL (2.5-4.9) Parathyroid Hormone (Intact) Pending Neurologic Exam Objective PHYSICAL EXAMINATION: GENERAL: He is a well-developed but lean and ill-looking gentleman lying in bed, in no acute distress. HEAD: Normocephalic and atraumatic. NECK: No neck rigidity was observed. EENT: Examination benign except for NGT in place. NEUROLOGICAL EXAMINATION: MENTAL STATUS EXAMINATION: He was awake and alert. He was oriented to self only. He had no idea where he was or what the date was. He was able to recall 3/3 words immediately, but could not remember any of them in 1 minute and 3 minutes. He was unable to tell me who the present president was and who prior presidents were. His mathematical skills were impaired. His visuospatial function was also impaired. SPEECH: He had a mild dysarthria. LANGUAGE: He had problems with comprehension, repetition, naming, and expression of language. CRANIAL NERVE EXAMINATION: II: The visual miller were difficult to test because of his inability to cooperate. He did, however, blink to threat in all miller. He made numerous errors when he was made to count fingers. III, IV & : The external ocular movements were full, and the pupils 3 mm in diameter, equal, round, regular, and reactive to light. V: He had normal facial sensations and the temporales, masseters, and pterygoids functioned normally. VII: He had a trace right 7th central facial paresis. VIII: He was able to hear, and had no nystagmus. IX: The palate moved symmetrically on phonation. X: He had no hoarseness of voice. XI: The sternocleidomastoids and trapezii functioned normally. XII: The tongue was in the midline without any fasciculations or atrophy. MOTOR SYSTEM: The tone was increased in all 4 extremities with a combination of spasticity and Gegenhalten. Examination of muscle mass revealed no focal wasting. Examination of power was exceedingly difficult to perform because of varying degrees of cooperation. He did, however, move all 4 extremities on command with mild distal upper extremity and proximal lower extremity weakness. SENSORY EXAMINATION: He was able to discern between pinprick and light touch. He was unable to cooperate for other sensory modalities. REFLEXES: 1+ and bilaterally symmetrical at~the biceps, triceps, brachioradialis , and knees; 0 at both ankles. The plantar responses were flexor bilaterally. COORDINATION:He was significantly apractic in both his upper and lower extremities, and was unable to perform [id number] and [id number] testing. STANCE & GAIT: Were deferred. Impression/Recommendations Diagnostic Impression 1. Mr. Aashish Cordova is an 81-year-old, right-handed, gentleman, who does have a past history of hypertension, dyslipidemia, coronary artery disease - status post percutaneous intervention, chronic kidney disease, benign prostatic hypertrophy, anemia, alcoholism, influenza type A, and a possible pneumonia, and a cognitive decline for the last year. He was hospitalized for failure to thrive. 2. He feels better. He is brighter. He continues to be cognitively impoverished and motorically challenged. 3. On neurological examination, at this time, he does have problems with orientation, recent and remote memory, visuospatial function, higher cognitive function, and language. 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 4. His laboratory data on admission revealed that his creatinine was elevated to 2.8, his BUN was elevated to 113, his Na was elevated to 162, his Cl was elevated to 122, his HB was elevated to 18 G. 5. The patient's history, neurological examination, laboratory data are most compatible with failure to thrive due to severe dehydration due to not eating or drinking. He also has an underlying advanced dementia. Recommendations 1. Continue present management. 2. Continue correction of hypernatremia slowly. 3. Mobilize with PT/OT. SUSY BRICE M.D., M.S.P.H. SUSY BRICE Sep 12, 2017 20:13
--- NOTE | 2017-09-12 21:12 | General Progress Note ---
Assessment/Plan Assessment/Plan Assessment - OBS / AMS - Poor PO - Dehydration - Azotemia Recommendations - IVF - NGT feeds - check CT abd/pelvis to r/o intra-abd pathology - PEG placement Th at 11 am Subjective Allergies: Coded Allergies: MORPHINE (Verified Allergy, Unknown, 09/08/17) Subjective above noted d/w IM re plan of care RN unable to place NGT NGT placed by me at bedside PEG d/w DPOA - agreed Objective Last 24 Hour Vital Signs Date Time Temp Pulse Resp B/P (MAP) Pulse Ox O2 Delivery O2 Flow Rate FiO2 09/12/17 16:00 97.0 85 20 130/72 97 Room Air 09/12/17 12:00 89 09/12/17 12:00 97.9 93 20 128/73 97 Room Air 09/12/17 11:07 99 116/60 09/12/17 11:06 99 116/60 09/12/17 08:00 94 09/12/17 08:00 98.1 99 20 116/60 96 Room Air 09/12/17 04:00 95 09/12/17 04:00 99.4 98 20 106/54 96 Room Air 09/12/17 00:00 99.0 93 20 119/68 96 Room Air 09/12/17 00:00 99.0 93 20 119/68 96 Room Air 09/12/17 00:00 97 Intake and Output 09/11/17 09/12/17 19:00 07:00 Intake Total 125 ml 1570 ml Output Total 700 ml 1100 ml Balance -575 ml 470 ml Intake Oral 320 ml IV Total 125 ml 1250 ml Output Urine Total 700 ml 1100 ml # Bowel Movements 1 Laboratory Tests 09/12/17 07:00: Sodium Level 144, Potassium Level 4.6, Chloride Level 112H, Carbon Dioxide Level 23, Anion Gap 9, Blood Urea Nitrogen 43H, Creatinine 1.7H, Estimat Glomerular Filtration Rate , Glucose Level 108H, Calcium Level 9.2, Calcium ( Send out) [Pending], Phosphorus Level 3.1, Parathyroid Hormone (Intact) [Pending ] Height (Feet): 5 Height (Inches): 6.00 Weight (Pounds): 110 Objective Debilitated elderly man NCAT supple CTA RRR soft ND NT no edema CESIA AMEZCUA Sep 12, 2017 21:12
[2017-09-12] MEDS: Atorvastatin 20mg tab NG SCH (22:08)
[2017-09-13] VITALS: BP 135/68
[2017-09-13 04:00] VITALS: BP 123/75
[2017-09-13 08:00] VITALS: BP 125/67
[2017-09-13] MEDS: Metoprolol 25mg tab NG SCH ×2 (08:50→21:13)
[2017-09-13] MEDS: Thiamine 100mg tab NG SCH (08:50)
[2017-09-13] MEDS: Docusate 100mg/10ml Liq NG SCH ×2 (08:51→21:00)
[2017-09-13] MEDS: Lactobacillus-GG tablet NG SCH ×2 (08:51→17:21)
[2017-09-13] MEDS: Nystatin Susp 500,000 units/5ml ORAL SCH ×3 (08:51→17:21)
[2017-09-13] MEDS: Multivitamins W/Minerals 15 ML UDC NG SCH (08:51)
[2017-09-13] MEDS: Aspirin Baby 81mg NG SCH (08:51)
[2017-09-13] MEDS: Heparin 5000 units/ml inj SUBQ SCH ×2 (08:52→21:00)
[2017-09-13 11:32] LABS: ANION GAP 10 mmol/L (5-15); BLOOD UREA NITROGEN 39 mg/dL (7-18); CALCIUM 9.1 MG/DL (8.5-10.1); CARBON DIOXIDE 22 MMOL/L (21-32); CHLORIDE 110 MMOL/L (98-107); CREATININE 1.6 MG/DL (0.55-1.30); POTASSIUM 4.5 MMOL/L (3.5-5.1); SODIUM 142 MMOL/L (136-145)
[2017-09-13 12:00] VITALS: BP 127/67
--- NOTE | 2017-09-13 14:13 | Diagnostic Imaging Report ---
CLINICAL INDICATION: Reason For Exam: PAIN TECHNIQUE: Patient given enteric contrast. No IV contrast, per referring physician request. Multiphasic spiral acquisition obtained through the chest, abdomen and pelvis. Multiplanar reconstructions were generated. Total dose length product 710.81 mGycm. CTDIvol(s) 11.14 mGy. Dose reduction achieved using automated exposure control COMPARISON: none FINDINGS Chest: Prominent reticular interstitial markings, small subpleural blebs or bullae are seen at the right lung base. Small bladder is also seen in the right upper lobe. 3 mm subpleural nodule is seen in the left lower lobe, image 72 series 5. Focal pleural thickening is seen in the left upper lobe, image 68 series 5. No infiltrates, effusions, congestion demonstrated. A focal pleural calcification, probably of the visceral pleura, is seen in the posterior right upper lobe. The ascending thoracic aorta is ectatic but not frankly aneurysmal, measuring 3.8 x 4 cm in diameter. The heart size is normal. There is no pericardial effusion. There are coronary artery calcifications. There is a nasogastric tube, tip of which is in the gastric body. No mediastinal or hilar mass or adenopathy. No axillary or chest wall mass or adenopathy. The thyroid is unremarkable. The bones are unremarkable except for degenerative spondylosis changes and thoracolumbar scoliotic deformity. Abdomen and pelvis: There is colonic diverticulosis. No evidence of diverticulitis. Proximal small bowel loops are somewhat prominent in caliber, more narrowed distally, but the caliber change is not abrupt and contrast is seen throughout the entirety of large and small bowel. The appendix is normal. No free or loculated intraperitoneal air or fluid is evident. The stomach and duodenum are unremarkable. Lack of IV contrast limits assessment of the solid organs. The liver, gallbladder, bile ducts, pancreas, spleen, adrenals are unremarkable. The left kidney is grossly unremarkable. The right kidney demonstrates a 1.4 cm upper pole cyst and a 6 cm lower pole cyst. There is a Mack catheter in place. There is air within the bladder, presumably related to the Mack catheterization. There is somewhat irregular contour to the bladder wall and possible wall thickening no pelvic mass or adenopathy. There is degenerative lumbar spondylosis and scoliotic deformity. Degenerative changes of both hips are noted. IMPRESSION Chronic pulmonary parenchymal changes, including evidence of COPD and fibrotic changes at the right lung base. No acute pulmonary parenchymal process 3 mm subpleural nodule left lower lobe. If there is high risk for lung carcinoma, short interval follow-up CT in 6-12 months is recommended No definite acute abdominal process Mack catheter. Air within the bladder presumably relates to Mack catheterization. Equivocally irregular bladder wall, if real could indicate bladder pathology such as cystitis, neoplasm, or thickening secondary to chronic outlet obstruction. Correlate with clinical findings Nasogastric tube Colonic diverticulosis. No evidence of diverticulitis Lumbar scoliosis and degenerative lumbar spondylosis Right renal cysts The CT scanner at [facility] is accredited by the [place] [employer] and the scans are performed using protocols designed to limit radiation exposure to as low as reasonably achievable to attain images of sufficient resolution adequate for diagnostic evaluation. Without contrast
--- NOTE | 2017-09-13 15:00 | Nephrology Progress Note ---
Assessment/Plan Problem List: (1) Hypernatremia Assessment: corrected (2) Acute renal failure Assessment: better (3) Episode of generalized weakness (4) Protein-calorie malnutrition, moderate Assessment PTH is ok Plan TF hydrate via NG discussed with RN Subjective Subjective In NAD Objective Objective Last 24 Hour Vital Signs Date Time Temp Pulse Resp B/P (MAP) Pulse Ox O2 Delivery O2 Flow Rate FiO2 09/13/17 12:00 97.9 89 20 127/67 96 Room Air 09/13/17 12:00 87 09/13/17 08:50 104 125/67 09/13/17 08:50 104 125/67 09/13/17 08:00 97.9 104 20 125/67 97 Room Air 09/13/17 08:00 105 09/13/17 04:00 101 09/13/17 04:00 98.6 100 18 123/75 96 Room Air 09/13/17 00:00 98.1 91 22 135/68 96 Room Air 09/12/17 23:48 92 09/12/17 22:08 85 130/72 09/12/17 20:00 98.8 93 22 129/73 97 Room Air 09/12/17 20:00 93 09/12/17 16:00 97.0 85 20 130/72 97 Room Air Intake and Output 09/12/17 09/13/17 19:00 07:00 Intake Total 713 ml 390 ml Output Total 450 ml 550 ml Balance 263 ml -160 ml Free Water 100 ml IV Total 713 ml Tube Feeding 240 ml Other 50 ml Output Urine Total 450 ml 550 ml # Bowel Movements 1 Laboratory Tests 09/13/17 10:40: Sodium Level 142, Potassium Level 4.5, Chloride Level 110H, Carbon Dioxide Level 22, Anion Gap 10, Blood Urea Nitrogen 39H, Creatinine 1.6H, Estimat Glomerular Filtration Rate , Glucose Level 122H, Calcium Level 9.1 Height (Feet): 5 Height (Inches): 6.00 Weight (Pounds): 110 Cardiovascular: normal rate Respiratory/Chest: lungs clear Extremities: other - no edema MARYA KENDALL Sep 13, 2017 15:00
[2017-09-13 16:00] VITALS: BP 129/79
--- NOTE | 2017-09-13 18:08 | General Progress Note ---
Assessment/Plan Problem List: (1) Hyperthyroidism ICD Codes: E05.90 - Thyrotoxicosis, unspecified without thyrotoxic crisis or storm SNOMED: 23194370 (2) Episode of generalized weakness ICD Codes: R53.1 - Weakness SNOMED: 03644651 (3) Hypernatremia ICD Codes: E87.0 - Hyperosmolality and hypernatremia SNOMED: 26733171 (4) Dehydration ICD Codes: E86.0 - Dehydration SNOMED: 69311662 (5) Urinary obstruction ICD Codes: N13.9 - Obstructive and reflux uropathy, unspecified SNOMED: 5597473 (6) Acute renal failure ICD Codes: N17.9 - Acute kidney failure, unspecified SNOMED: 23951396 Assessment/Plan - continueTapazole 10 mg daily - follow ATPO and TSI - repeat thyroid function in one month Subjective ROS Limited/Unobtainable: Yes Allergies: Coded Allergies: MORPHINE (Verified Allergy, Unknown, 09/08/17) Subjective events noted Objective Last 24 Hour Vital Signs Date Time Temp Pulse Resp B/P (MAP) Pulse Ox O2 Delivery O2 Flow Rate FiO2 09/13/17 16:00 97.0 99 20 129/79 94 Room Air 09/13/17 16:00 110 09/13/17 12:00 97.9 89 20 127/67 96 Room Air 09/13/17 12:00 87 09/13/17 08:50 104 125/67 09/13/17 08:50 104 125/67 09/13/17 08:00 97.9 104 20 125/67 97 Room Air 09/13/17 08:00 105 09/13/17 04:00 101 09/13/17 04:00 98.6 100 18 123/75 96 Room Air 09/13/17 00:00 98.1 91 22 135/68 96 Room Air 09/12/17 23:48 92 09/12/17 22:08 85 130/72 09/12/17 20:00 98.8 93 22 129/73 97 Room Air 09/12/17 20:00 93 Intake and Output 09/12/17 09/13/17 19:00 07:00 Intake Total 713 ml 390 ml Output Total 450 ml 550 ml Balance 263 ml -160 ml Free Water 100 ml IV Total 713 ml Tube Feeding 240 ml Other 50 ml Output Urine Total 450 ml 550 ml # Bowel Movements 1 Laboratory Tests 09/13/17 10:40: Sodium Level 142, Potassium Level 4.5, Chloride Level 110H, Carbon Dioxide Level 22, Anion Gap 10, Blood Urea Nitrogen 39H, Creatinine 1.6H, Estimat Glomerular Filtration Rate , Glucose Level 122H, Calcium Level 9.1 Height (Feet): 5 Height (Inches): 6.00 Weight (Pounds): 110 General Appearance: no apparent distress Neck: normal alignment Cardiovascular: normal rate Respiratory/Chest: lungs clear Abdomen: non tender Pelvis: normal external exam Objective Current Medications Medications (Trade) Dose Ordered Sig/Elvia Route PRN Reason Start Time Stop Time Status Last Admin Dose Admin Acetaminophen (Tylenol) 650 mg Q4H PRN ORAL Mild Pain (Pain Scale 1-3) 09/08/17 23:15 10/08/17 23:14 Acetaminophen (Tylenol) 650 mg Q4H PRN ORAL fever 09/08/17 23:15 10/08/17 23:14 Amlodipine Besylate (Norvasc) 2.5 mg DAILY NG 09/12/17 10:30 10/12/17 10:29 09/13/17 08:50 Aspirin (ASA) 81 mg DAILY NG 09/12/17 10:30 10/12/17 10:29 09/13/17 08:51 Atorvastatin Calcium (Lipitor) 40 mg BEDTIME NG 09/12/17 21:00 10/12/17 20:59 09/12/17 22:08 Cefazolin Sodium 50 ml @ 100 mls/hr ONCE ONCE IV 09/14/17 10:00 09/14/17 10:29 Clopidogrel Bisulfate (Plavix) 75 mg DAILY NG 09/12/17 10:30 10/12/17 10:29 09/13/17 08:50 Dextrose (Dextrose 50%) STAT PRN IV Hypoglycemia 09/08/17 23:15 10/08/17 23:14 Docusate Sodium (Colace) 100 mg EVERY 12 HOURS NG 09/12/17 10:30 10/09/17 08:59 09/13/17 08:51 Folic Acid (Folate) 1 mg DAILY NG 09/12/17 10:30 10/12/17 10:29 09/13/17 08:50 Heparin Sodium (Porcine) (Heparin 5000 units/ml) 5,000 units EVERY 12 HOURS SUBQ 09/09/17 09:00 10/09/17 08:59 09/11/17 09:06 Lactobacillus Acidophilus (Culturelle) 1 tab TWICE A DAY NG 09/12/17 10:30 10/12/17 10:29 09/13/17 17:21 Lansoprazole (Prevacid) 30 mg ACBREAKFAST NG 09/13/17 06:30 10/13/17 06:29 09/13/17 06:39 Magnesium Hydroxide (Mom) 30 ml HSPRN PRN NG Constipation 09/12/17 09:30 10/12/17 09:29 Methimazole (Tapazole) 10 mg DAILY NG 09/12/17 10:30 10/12/17 10:29 09/13/17 08:49 Metoprolol Tartrate (Lopressor) 25 mg EVERY 12 HOURS NG 09/12/17 10:30 10/12/17 10:29 09/13/17 08:50 Multivitamins (Multivitamins W/ Minerals 15ml Liquid) 15 ml DAILY NG 09/12/17 10:30 10/12/17 10:29 09/13/17 08:51 Nystatin (Nystatin) 5 ml THREE TIMES A DAY ORAL 09/12/17 10:30 09/19/17 10:29 09/13/17 17:21 Thiamine HCl (Vitamin B1) 100 mg DAILY NG 09/12/17 10:30 10/12/17 10:29 09/13/17 08:50 Item Value Date Time Glucose Level 108 MG/DL H 09/12/17 0700 Glucose Level 103 MG/DL 09/11/17 0440 CASSIDY SANDOVAL Sep 13, 2017 18:08
--- NOTE | 2017-09-13 18:32 | Neurology Progress Note ---
Interim History Interim History Interim History Mr. Cordova feels the same. He is subdued today. He continues to be cognitively impoverished. He continues to be motorically challenged. The left ankle is still painful. He denies any new neurologic symptoms. There has been no significant improvement in his neurologic condition. Review of Systems Neuro Review of Systems Unable to obtain. Objective Physical Exam Last Vital Signs Date Time Temp Pulse Resp B/P (MAP) Pulse Ox O2 Delivery O2 Flow Rate FiO2 09/13/17 16:00 97.0 99 20 129/79 94 Room Air Laboratory Tests Test 09/13/17 10:40 Sodium Level 142 MMOL/L (136-145) Potassium Level 4.5 MMOL/L (3.5-5.1) Chloride Level 110 MMOL/L (98-107) H Carbon Dioxide Level 22 MMOL/L (21-32) Anion Gap 10 mmol/L (5-15) Blood Urea Nitrogen 39 mg/dL (7-18) H Creatinine 1.6 MG/DL (0.55-1.30) H Estimat Glomerular Filtration Rate mL/min (>60) Glucose Level 122 MG/DL (74-106) H Calcium Level 9.1 MG/DL (8.5-10.1) Neurologic Exam Objective PHYSICAL EXAMINATION: GENERAL: He is a well-developed but lean and ill-looking gentleman lying in bed, in no acute distress. HEAD: Normocephalic and atraumatic. NECK: No neck rigidity was observed. EENT: Examination benign except for NGT in place. NEUROLOGICAL EXAMINATION: MENTAL STATUS EXAMINATION: He was awake and alert. He was oriented to self only. He had no idea where he was or what the date was. He was able to recall 3/3 words immediately, but could not remember any of them in 1 minute and 3 minutes. He was unable to tell me who the present president was and who prior presidents were. His mathematical skills were impaired. His visuospatial function was also impaired. SPEECH: He had a mild dysarthria. LANGUAGE: He had problems with comprehension, repetition, naming, and expression of language. CRANIAL NERVE EXAMINATION: II: The visual miller were difficult to test because of his inability to cooperate. He did, however, blink to threat. He made numerous errors when he was made to count fingers. III, IV & : The external ocular movements were full, and the pupils 3 mm in diameter, equal, round, regular, and reactive to light. V: He had normal facial sensations and the temporales, masseters, and pterygoids functioned normally. VII: He had a trace right 7th central facial paresis. VIII: He was able to hear, and had no nystagmus. IX: The palate moved symmetrically on phonation. X: He had no hoarseness of voice. XI: The sternocleidomastoids and trapezii functioned normally. XII: The tongue was in the midline without any fasciculations or atrophy. MOTOR SYSTEM: The tone was increased in all 4 extremities with a combination of spasticity and Gegenhalten. Examination of muscle mass revealed no focal wasting. Examination of power was exceedingly difficult to perform because of varying degrees of cooperation. He did, however, move all 4 extremities on command with mild distal upper extremity and proximal lower extremity weakness. SENSORY EXAMINATION: He was able to discern between pinprick and light touch. He was unable to cooperate for other sensory modalities. REFLEXES: 1+ and bilaterally symmetrical at~the biceps, triceps, brachioradialis , and knees; 0 at both ankles. The plantar responses were flexor bilaterally. COORDINATION:He was significantly apractic in both his upper and lower extremities, and was unable to perform [id number] and etyo-ul-[id number] testing. STANCE & GAIT: Were deferred. Impression/Recommendations Diagnostic Impression 1. Mr. Aashish Cordova is an 81-year-old, right-handed, gentleman, who does have a past history of hypertension, dyslipidemia, coronary artery disease - status post percutaneous intervention, chronic kidney disease, benign prostatic hypertrophy, anemia, alcoholism, influenza type A, and a possible pneumonia, and a cognitive decline for the last year. He was hospitalized for failure to thrive. 2. He feels about the same as yesterday. He is subdued today. He continues to be cognitively impoverished and motorically challenged. 3. On neurological examination, at this time, he does have problems with orientation, recent and remote memory, visuospatial function, higher cognitive function, and language. 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 4. His laboratory data on admission revealed that his creatinine was elevated to 2.8, his BUN was elevated to 113, his Na was elevated to 162, his Cl was elevated to 122, his HB was elevated to 18 G. 5. The patient's history, neurological examination, laboratory data are most compatible with failure to thrive due to severe dehydration due to not eating or drinking. He also has an underlying advanced dementia. Recommendations 1. Continue present management. 2. Continue correction of hypernatremia slowly. 3. Mobilize with PT/OT. 4. G-Tube as planned. SUSY BRICE M.D., M.S.P.H. SUSY BRICE Sep 13, 2017 18:32
[2017-09-13 20:00] VITALS: BP 108/52
[2017-09-13] MEDS: Atorvastatin 20mg tab NG SCH (21:15)
--- NOTE | 2017-09-13 22:56 | General Progress Note ---
Assessment/Plan Assessment/Plan Assessment - OBS / AMS - Poor PO - Dehydration - Azotemia - Mild thrombocytopenia Recommendations - IVF - NGT feeds - d/c plavix and ASA - PEG placement late this week or early next week - re check labs Subjective Allergies: Coded Allergies: MORPHINE (Verified Allergy, Unknown, 09/08/17) Subjective above noted tolerating NGT had CT scan today - no significant pathology d/w RN Objective Last 24 Hour Vital Signs Date Time Temp Pulse Resp B/P (MAP) Pulse Ox O2 Delivery O2 Flow Rate FiO2 09/13/17 21:13 116 108/52 09/13/17 16:00 97.0 99 20 129/79 94 Room Air 09/13/17 16:00 110 09/13/17 12:00 97.9 89 20 127/67 96 Room Air 09/13/17 12:00 87 09/13/17 08:50 104 125/67 09/13/17 08:50 104 125/67 09/13/17 08:00 97.9 104 20 125/67 97 Room Air 09/13/17 08:00 105 09/13/17 04:00 101 09/13/17 04:00 98.6 100 18 123/75 96 Room Air 09/13/17 00:00 98.1 91 22 135/68 96 Room Air 09/12/17 23:48 92 Intake and Output 09/12/17 09/13/17 19:00 07:00 Intake Total 713 ml 390 ml Output Total 450 ml 550 ml Balance 263 ml -160 ml Free Water 100 ml IV Total 713 ml Tube Feeding 240 ml Other 50 ml Output Urine Total 450 ml 550 ml # Bowel Movements 1 Laboratory Tests 09/13/17 10:40: Sodium Level 142, Potassium Level 4.5, Chloride Level 110H, Carbon Dioxide Level 22, Anion Gap 10, Blood Urea Nitrogen 39H, Creatinine 1.6H, Estimat Glomerular Filtration Rate , Glucose Level 122H, Calcium Level 9.1 Height (Feet): 5 Height (Inches): 6.00 Weight (Pounds): 110 Objective Debilitated elderly man NCAT (+) NGT supple CTA RRR soft ND NT no edema CESIA AMEZCUA Sep 13, 2017 22:56
[2017-09-14] VITALS: BP 147/67
[2017-09-14 04:00] VITALS: BP 120/64
[2017-09-14 08:00] VITALS: BP 152/78
[2017-09-14 08:37] LABS: HEMATOCRIT 42.2 % (42.0-52.0); HEMOGLOBIN 14.2 G/DL (14.2-18.0); MEAN CORPUSCULAR VOLUME 101 FL (80-99); PLATELET COUNT 132 K/UL (150-450); RED BLOOD COUNT 4.17 M/UL (4.70-6.10); RED CELL DISTRIBUTION WIDTH 12.3 % (11.6-14.8); WHITE BLOOD COUNT 13.5 K/UL (4.8-10.8)
[2017-09-14 08:46] LABS: ANION GAP 8 mmol/L (5-15); BLOOD UREA NITROGEN 44 mg/dL (7-18); CALCIUM 9.1 MG/DL (8.5-10.1); CARBON DIOXIDE 25 MMOL/L (21-32); CHLORIDE 108 MMOL/L (98-107); CREATININE 1.7 MG/DL (0.55-1.30); POTASSIUM 4.6 MMOL/L (3.5-5.1); SODIUM 141 MMOL/L (136-145)
[2017-09-14] MEDS: Heparin 5000 units/ml inj SUBQ SCH (09:00)
[2017-09-14] MEDS: Nystatin Susp 500,000 units/5ml ORAL SCH ×3 (09:27→17:27)
[2017-09-14] MEDS: Multivitamins W/Minerals 15 ML UDC NG SCH (09:27)
[2017-09-14] MEDS: Docusate 100mg/10ml Liq NG SCH ×2 (09:27→21:00)
[2017-09-14] MEDS: Metoprolol 25mg tab NG SCH ×2 (09:28→21:00)
[2017-09-14] MEDS: Lactobacillus-GG tablet NG SCH ×2 (09:28→17:27)
[2017-09-14] MEDS: Thiamine 100mg tab NG SCH (09:34)
[2017-09-14] MEDS ORDERED: ceFAZolin 1gm/50ml Premix 50 ML IV ONE (10:00)
--- NOTE | 2017-09-14 11:38 | Neurology Progress Note ---
Interim History Interim History Interim History Mr. Cordova feels better. He looks about the same.. He is subdued. He continues to be cognitively impoverished. He continues to be motorically challenged. The left ankle is still painful. He denies any new neurologic symptoms. There has been no significant improvement in his neurologic condition. Review of Systems Neuro Review of Systems Unable to obtain. Objective Physical Exam Last Vital Signs Date Time Temp Pulse Resp B/P (MAP) Pulse Ox O2 Delivery O2 Flow Rate FiO2 09/14/17 09:30 105 152/78 09/14/17 08:00 99.3 22 97 Room Air Laboratory Tests Test 09/14/17 06:30 White Blood Count 13.5 K/UL (4.8-10.8) H Red Blood Count 4.17 M/UL (4.70-6.10) L Hemoglobin 14.2 G/DL (14.2-18.0) Hematocrit 42.2 % (42.0-52.0) Mean Corpuscular Volume 101 FL (80-99) H Mean Corpuscular Hemoglobin 34.0 PG (27.0-31.0) H Mean Corpuscular Hemoglobin Concent 33.6 G/DL (32.0-36.0) Red Cell Distribution Width 12.3 % (11.6-14.8) Platelet Count 132 K/UL (150-450) L Mean Platelet Volume 12.0 FL (6.5-10.1) H Neutrophils (%) (Auto) % (45.0-75.0) Lymphocytes (%) (Auto) % (20.0-45.0) Monocytes (%) (Auto) % (1.0-10.0) Eosinophils (%) (Auto) % (0.0-3.0) Basophils (%) (Auto) % (0.0-2.0) Differential Total Cells Counted 100 Neutrophils % (Manual) 89 % (45-75) H Lymphocytes % (Manual) 8 % (20-45) L Monocytes % (Manual) 2 % (1-10) Eosinophils % (Manual) 1 % (0-3) Basophils % (Manual) 0 % (0-2) Band Neutrophils 0 % (0-8) Platelet Estimate Decreased L Platelet Morphology Normal Macrocytosis 1+ Sodium Level 141 MMOL/L (136-145) Potassium Level 4.6 MMOL/L (3.5-5.1) Chloride Level 108 MMOL/L (98-107) H Carbon Dioxide Level 25 MMOL/L (21-32) Anion Gap 8 mmol/L (5-15) Blood Urea Nitrogen 44 mg/dL (7-18) H Creatinine 1.7 MG/DL (0.55-1.30) H Estimat Glomerular Filtration Rate mL/min (>60) Glucose Level 108 MG/DL (74-106) H Calcium Level 9.1 MG/DL (8.5-10.1) Neurologic Exam Objective PHYSICAL EXAMINATION: GENERAL: He is a well-developed but lean and ill-looking gentleman lying in bed, in no acute distress. HEAD: Normocephalic and atraumatic. NECK: No neck rigidity was observed. EENT: Examination benign except for NGT in place. NEUROLOGICAL EXAMINATION: MENTAL STATUS EXAMINATION: He was awake and alert. He was oriented to self only. He had no idea where he was or what the date was. He was unable to cooperate for further mental status tests. SPEECH: He had a mild dysarthria. LANGUAGE: He had problems with comprehension, repetition, naming, and expression of language. CRANIAL NERVE EXAMINATION: II: The visual miller were difficult to test because of his inability to cooperate. He did, however, blink to threat. He made numerous errors when he was made to count fingers. III, IV & : The external ocular movements were full, and the pupils 3 mm in diameter, equal, round, regular, and reactive to light. V: He had normal facial sensations and the temporales, masseters, and pterygoids functioned normally. VII: He had a trace right 7th central facial paresis. VIII: He was able to hear, and had no nystagmus. IX: The palate moved symmetrically on phonation. X: He had no hoarseness of voice. XI: The sternocleidomastoids and trapezii functioned normally. XII: The tongue was in the midline without any fasciculations or atrophy. MOTOR SYSTEM: The tone was increased in all 4 extremities with a combination of spasticity and Gegenhalten. Examination of muscle mass revealed no focal wasting. Examination of power was exceedingly difficult to perform because of varying degrees of cooperation. He did, however, move all 4 extremities on command with mild distal upper extremity and proximal lower extremity weakness. SENSORY EXAMINATION: He was able to discern between pinprick and light touch. He was unable to cooperate for other sensory modalities. REFLEXES: 1+ and bilaterally symmetrical at~the biceps, triceps, brachioradialis , and knees; 0 at both ankles. The plantar responses were flexor bilaterally. COORDINATION:He was significantly apractic in both his upper and lower extremities, and was unable to perform eanoes-fr-dnys and kbmh-jd-dwoz testing. STANCE & GAIT: Were deferred. Impression/Recommendations Diagnostic Impression 1. Mr. Aashish Cordova is an 81-year-old, right-handed, gentleman, who does have a past history of hypertension, dyslipidemia, coronary artery disease - status post percutaneous intervention, chronic kidney disease, benign prostatic hypertrophy, anemia, alcoholism, influenza type A, and a possible pneumonia, and a cognitive decline for the last year. He was hospitalized for failure to thrive. 2. He feels better. He is still subdued. He continues to be cognitively impoverished and motorically challenged. 3. On neurological examination, at this time, he does have problems with orientation, recent and remote memory, visuospatial function, higher cognitive function, and language. 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 4. His laboratory data on admission revealed that his creatinine was elevated to 2.8, his BUN was elevated to 113, his Na was elevated to 162, his Cl was elevated to 122, his HB was elevated to 18 G. 5. The patient's history, neurological examination, laboratory data are most compatible with failure to thrive due to severe dehydration due to not eating or drinking. He also has an underlying advanced dementia. Recommendations 1. Continue present management. 2. Continue correction of hypernatremia slowly. 3. Mobilize with PT/OT. 4. G-Tube as planned. SUSY BRICE M.D., M.S.P.H. SUSY BRICE Sep 14, 2017 11:38
[2017-09-14 12:00] VITALS: BP 127/57
--- NOTE | 2017-09-14 12:40 | General Progress Note ---
Assessment/Plan Assessment/Plan Assessment - OBS / AMS - Poor PO - Dehydration - Azotemia - Mild thrombocytopenia Recommendations - IVF - NGT feeds - plavix and ASA on hold - PEG placement Monday - re check labs Subjective Allergies: Coded Allergies: MORPHINE (Verified Allergy, Unknown, 09/08/17) Subjective above noted tolerating NGT d/w RN and private duty Objective Last 24 Hour Vital Signs Date Time Temp Pulse Resp B/P (MAP) Pulse Ox O2 Delivery O2 Flow Rate FiO2 09/14/17 12:00 97.7 91 22 127/57 95 Room Air 09/14/17 09:30 105 152/78 09/14/17 09:28 105 152/78 09/14/17 08:00 107 09/14/17 08:00 99.3 105 22 152/78 97 Room Air 09/14/17 04:00 103 09/14/17 04:00 98.4 99 22 120/64 96 Room Air 09/14/17 02:18 98.4 09/14/17 00:00 101.7 112 20 147/67 94 Room Air 09/14/17 00:00 105 09/13/17 21:13 116 108/52 09/13/17 20:00 108 09/13/17 20:00 101.9 116 22 108/52 93 Room Air 09/13/17 16:00 97.0 99 20 129/79 94 Room Air 09/13/17 16:00 110 Intake and Output 09/13/17 09/14/17 19:00 07:00 Output Total 425 ml 475 ml Balance -425 ml -475 ml Output Urine Total 425 ml 475 ml # Bowel Movements 1 1 Laboratory Tests 09/14/17 06:30: White Blood Count 13.5H, Red Blood Count 4.17L, Hemoglobin 14.2, Hematocrit 42.2 , Mean Corpuscular Volume 101H, Mean Corpuscular Hemoglobin 34.0H, Mean Corpuscular Hemoglobin Concent 33.6, Red Cell Distribution Width 12.3, Platelet Count 132L, Mean Platelet Volume 12.0H, Neutrophils (%) (Auto) , Lymphocytes (% ) (Auto) , Monocytes (%) (Auto) , Eosinophils (%) (Auto) , Basophils (%) (Auto) , Differential Total Cells Counted 100, Neutrophils % (Manual) 89H, Lymphocytes % (Manual) 8L, Monocytes % (Manual) 2, Eosinophils % (Manual) 1, Basophils % ( Manual) 0, Band Neutrophils 0, Platelet Estimate DecreasedL, Platelet Morphology Normal, Macrocytosis 1+, Sodium Level 141, Potassium Level 4.6, Chloride Level 108H, Carbon Dioxide Level 25, Anion Gap 8, Blood Urea Nitrogen 44H, Creatinine 1.7H, Estimat Glomerular Filtration Rate , Glucose Level 108H, Calcium Level 9.1 Height (Feet): 5 Height (Inches): 6.00 Weight (Pounds): 110 Objective Debilitated elderly man NCAT (+) NGT supple CTA RRR soft ND NT no edema CESIA AMEZCUA Sep 14, 2017 12:40
--- NOTE | 2017-09-14 13:39 | Nephrology Progress Note ---
Assessment/Plan Problem List: (1) Hypernatremia Assessment: corrected (2) Acute renal failure Assessment: better (3) Episode of generalized weakness (4) Protein-calorie malnutrition, moderate Assessment PTH is ok Plan TF hydrate via NG discussed with home care physical therapist await GT Subjective Subjective In NAD Objective Objective Last 24 Hour Vital Signs Date Time Temp Pulse Resp B/P (MAP) Pulse Ox O2 Delivery O2 Flow Rate FiO2 09/14/17 12:00 97.7 91 22 127/57 95 Room Air 09/14/17 09:30 105 152/78 09/14/17 09:28 105 152/78 09/14/17 08:00 107 09/14/17 08:00 99.3 105 22 152/78 97 Room Air 09/14/17 04:00 103 09/14/17 04:00 98.4 99 22 120/64 96 Room Air 09/14/17 02:18 98.4 09/14/17 00:00 101.7 112 20 147/67 94 Room Air 09/14/17 00:00 105 09/13/17 21:13 116 108/52 09/13/17 20:00 108 09/13/17 20:00 101.9 116 22 108/52 93 Room Air 09/13/17 16:00 97.0 99 20 129/79 94 Room Air 09/13/17 16:00 110 Intake and Output 09/13/17 09/14/17 19:00 07:00 Output Total 425 ml 475 ml Balance -425 ml -475 ml Output Urine Total 425 ml 475 ml # Bowel Movements 1 1 Laboratory Tests 09/14/17 06:30: White Blood Count 13.5H, Red Blood Count 4.17L, Hemoglobin 14.2, Hematocrit 42.2 , Mean Corpuscular Volume 101H, Mean Corpuscular Hemoglobin 34.0H, Mean Corpuscular Hemoglobin Concent 33.6, Red Cell Distribution Width 12.3, Platelet Count 132L, Mean Platelet Volume 12.0H, Neutrophils (%) (Auto) , Lymphocytes (% ) (Auto) , Monocytes (%) (Auto) , Eosinophils (%) (Auto) , Basophils (%) (Auto) , Differential Total Cells Counted 100, Neutrophils % (Manual) 89H, Lymphocytes % (Manual) 8L, Monocytes % (Manual) 2, Eosinophils % (Manual) 1, Basophils % ( Manual) 0, Band Neutrophils 0, Platelet Estimate DecreasedL, Platelet Morphology Normal, Macrocytosis 1+, Sodium Level 141, Potassium Level 4.6, Chloride Level 108H, Carbon Dioxide Level 25, Anion Gap 8, Blood Urea Nitrogen 44H, Creatinine 1.7H, Estimat Glomerular Filtration Rate , Glucose Level 108H, Calcium Level 9.1 Height (Feet): 5 Height (Inches): 6.00 Weight (Pounds): 110 Cardiovascular: normal rate Respiratory/Chest: lungs clear Extremities: other - no edema MARYA KENDALL Sep 14, 2017 13:38
[2017-09-14 16:00] VITALS: BP 123/59
[2017-09-14 20:00] VITALS: BP 118/80
[2017-09-14] MEDS: Atorvastatin 20mg tab NG SCH (21:00)
--- NOTE | 2017-09-14 21:09 | General Progress Note ---
Assessment/Plan Assessment/Plan dehration renal failure hypernatremia urinary obstruction dementia ho alcoholism hyperthyrodism fluids nephrolgy fup has rasmussen urolgy fup monitor labs dw Dr Moura started on tapazole gi eval appreciated clarence Dorado planning on gtube placement, asa plavix held, will alos hold heparin decreased platelsts check le doppler place on scds check ct scan results dvt and ulcer prophylaxis pt/ot clarence Feng states symptoms from worsining dementia and encephalopathy Subjective Allergies: Coded Allergies: MORPHINE (Verified Allergy, Unknown, 09/08/17) Subjective more alert, problem with swalllowing no chest pain or sob doesnt take much clarence Dorado planning on gtube placement has held asa plavix, alos patelt slightly lower will hold heparin Objective Last 24 Hour Vital Signs Date Time Temp Pulse Resp B/P (MAP) Pulse Ox O2 Delivery O2 Flow Rate FiO2 09/14/17 20:00 98.7 120 22 118/80 96 Room Air 09/14/17 16:00 105 09/14/17 16:00 98.4 103 20 123/59 95 Room Air 09/14/17 12:00 97.7 91 22 127/57 95 Room Air 09/14/17 12:00 91 09/14/17 09:30 105 152/78 09/14/17 09:28 105 152/78 09/14/17 08:00 107 09/14/17 08:00 99.3 105 22 152/78 97 Room Air 09/14/17 04:00 103 09/14/17 04:00 98.4 99 22 120/64 96 Room Air 09/14/17 02:18 98.4 09/14/17 00:00 101.7 112 20 147/67 94 Room Air 09/14/17 00:00 105 09/13/17 21:13 116 108/52 Intake and Output 09/13/17 09/14/17 19:00 07:00 Output Total 425 ml 475 ml Balance -425 ml -475 ml Output Urine Total 425 ml 475 ml # Bowel Movements 1 1 Laboratory Tests 09/14/17 06:30: White Blood Count 13.5H, Red Blood Count 4.17L, Hemoglobin 14.2, Hematocrit 42.2 , Mean Corpuscular Volume 101H, Mean Corpuscular Hemoglobin 34.0H, Mean Corpuscular Hemoglobin Concent 33.6, Red Cell Distribution Width 12.3, Platelet Count 132L, Mean Platelet Volume 12.0H, Neutrophils (%) (Auto) , Lymphocytes (% ) (Auto) , Monocytes (%) (Auto) , Eosinophils (%) (Auto) , Basophils (%) (Auto) , Differential Total Cells Counted 100, Neutrophils % (Manual) 89H, Lymphocytes % (Manual) 8L, Monocytes % (Manual) 2, Eosinophils % (Manual) 1, Basophils % ( Manual) 0, Band Neutrophils 0, Platelet Estimate DecreasedL, Platelet Morphology Normal, Macrocytosis 1+, Sodium Level 141, Potassium Level 4.6, Chloride Level 108H, Carbon Dioxide Level 25, Anion Gap 8, Blood Urea Nitrogen 44H, Creatinine 1.7H, Estimat Glomerular Filtration Rate , Glucose Level 108H, Calcium Level 9.1 Height (Feet): 5 Height (Inches): 6.00 Weight (Pounds): 110 General Appearance: WD/WN Neck: supple Cardiovascular: regular rhythm Respiratory/Chest: lungs clear Abdomen: soft Objective ncat peerla temporal wasting mouth moist mucous membrane YANET MEDELLIN Sep 14, 2017 21:09
--- NOTE | 2017-09-14 21:16 | General Progress Note ---
Assessment/Plan Assessment/Plan dehydration renal failure hypernatremia urinary obstruction dementia ho alcoholism hyperthyrodism fluids nephrolgy fup has rasmussen urolgy fup monitor labs dw Dr Moura started on tapazole gi eval appreciated dw Dr Dorado planning on gtube placement, asa plavix to be held ct c/a/p ordered dvt and ulcer prophylaxis pt/ot clarence Feng states symptoms from worsining dementia and encephalopathy Subjective Allergies: Coded Allergies: MORPHINE (Verified Allergy, Unknown, 09/08/17) Subjective this note reflects my visity with patient 09/13 more alert but doesnt fallow command fully, has ng placed, Dr Nguyen planning on ngtube placement Objective Last 24 Hour Vital Signs Date Time Temp Pulse Resp B/P (MAP) Pulse Ox O2 Delivery O2 Flow Rate FiO2 09/14/17 20:00 98.7 120 22 118/80 96 Room Air 09/14/17 16:00 105 09/14/17 16:00 98.4 103 20 123/59 95 Room Air 09/14/17 12:00 97.7 91 22 127/57 95 Room Air 09/14/17 12:00 91 09/14/17 09:30 105 152/78 09/14/17 09:28 105 152/78 09/14/17 08:00 107 09/14/17 08:00 99.3 105 22 152/78 97 Room Air 09/14/17 04:00 103 09/14/17 04:00 98.4 99 22 120/64 96 Room Air 09/14/17 02:18 98.4 09/14/17 00:00 101.7 112 20 147/67 94 Room Air 09/14/17 00:00 105 Intake and Output 09/13/17 09/14/17 19:00 07:00 Output Total 425 ml 475 ml Balance -425 ml -475 ml Output Urine Total 425 ml 475 ml # Bowel Movements 1 1 Laboratory Tests 09/14/17 06:30: White Blood Count 13.5H, Red Blood Count 4.17L, Hemoglobin 14.2, Hematocrit 42.2 , Mean Corpuscular Volume 101H, Mean Corpuscular Hemoglobin 34.0H, Mean Corpuscular Hemoglobin Concent 33.6, Red Cell Distribution Width 12.3, Platelet Count 132L, Mean Platelet Volume 12.0H, Neutrophils (%) (Auto) , Lymphocytes (% ) (Auto) , Monocytes (%) (Auto) , Eosinophils (%) (Auto) , Basophils (%) (Auto) , Differential Total Cells Counted 100, Neutrophils % (Manual) 89H, Lymphocytes % (Manual) 8L, Monocytes % (Manual) 2, Eosinophils % (Manual) 1, Basophils % ( Manual) 0, Band Neutrophils 0, Platelet Estimate DecreasedL, Platelet Morphology Normal, Macrocytosis 1+, Sodium Level 141, Potassium Level 4.6, Chloride Level 108H, Carbon Dioxide Level 25, Anion Gap 8, Blood Urea Nitrogen 44H, Creatinine 1.7H, Estimat Glomerular Filtration Rate , Glucose Level 108H, Calcium Level 9.1 Height (Feet): 5 Height (Inches): 6.00 Weight (Pounds): 110 Cardiovascular: normal rate Respiratory/Chest: lungs clear Objective ncat peerla temporal wasting mouth moist mucous membrane YANET MEDELLIN Sep 14, 2017 21:16
[2017-09-15] VITALS: BP 141/78
[2017-09-15 04:00] VITALS: BP 129/69
--- NOTE | 2017-09-15 06:14 | General Progress Note ---
Assessment/Plan Problem List: (1) Hyperthyroidism ICD Codes: E05.90 - Thyrotoxicosis, unspecified without thyrotoxic crisis or storm SNOMED: 67217505 (2) Episode of generalized weakness ICD Codes: R53.1 - Weakness SNOMED: 95253066 (3) Hypernatremia ICD Codes: E87.0 - Hyperosmolality and hypernatremia SNOMED: 06106525 (4) Dehydration ICD Codes: E86.0 - Dehydration SNOMED: 06653034 (5) Urinary obstruction ICD Codes: N13.9 - Obstructive and reflux uropathy, unspecified SNOMED: 3419553 (6) Acute renal failure ICD Codes: N17.9 - Acute kidney failure, unspecified SNOMED: 04644071 Assessment/Plan - continueTapazole 10 mg daily - follow ATPO and TSI - repeat thyroid function in one month Subjective ROS Limited/Unobtainable: Yes Allergies: Coded Allergies: MORPHINE (Verified Allergy, Unknown, 09/08/17) Subjective events noted - interval notes reviewed animal caretaker supervisor at bedside Objective Last 24 Hour Vital Signs Date Time Temp Pulse Resp B/P (MAP) Pulse Ox O2 Delivery O2 Flow Rate FiO2 09/14/17 21:00 120 118/80 09/14/17 20:00 98.7 120 22 118/80 96 Room Air 09/14/17 16:00 105 09/14/17 16:00 98.4 103 20 123/59 95 Room Air 09/14/17 12:00 97.7 91 22 127/57 95 Room Air 09/14/17 12:00 91 09/14/17 09:30 105 152/78 09/14/17 09:28 105 152/78 09/14/17 08:00 107 09/14/17 08:00 99.3 105 22 152/78 97 Room Air Intake and Output 09/14/17 09/15/17 19:00 07:00 Output Total 400 ml 450 ml Balance -400 ml -450 ml Output Urine Total 400 ml 450 ml # Bowel Movements 2 Laboratory Tests 09/14/17 06:30: White Blood Count 13.5H, Red Blood Count 4.17L, Hemoglobin 14.2, Hematocrit 42.2 , Mean Corpuscular Volume 101H, Mean Corpuscular Hemoglobin 34.0H, Mean Corpuscular Hemoglobin Concent 33.6, Red Cell Distribution Width 12.3, Platelet Count 132L, Mean Platelet Volume 12.0H, Neutrophils (%) (Auto) , Lymphocytes (% ) (Auto) , Monocytes (%) (Auto) , Eosinophils (%) (Auto) , Basophils (%) (Auto) , Differential Total Cells Counted 100, Neutrophils % (Manual) 89H, Lymphocytes % (Manual) 8L, Monocytes % (Manual) 2, Eosinophils % (Manual) 1, Basophils % ( Manual) 0, Band Neutrophils 0, Platelet Estimate DecreasedL, Platelet Morphology Normal, Macrocytosis 1+, Sodium Level 141, Potassium Level 4.6, Chloride Level 108H, Carbon Dioxide Level 25, Anion Gap 8, Blood Urea Nitrogen 44H, Creatinine 1.7H, Estimat Glomerular Filtration Rate , Glucose Level 108H, Calcium Level 9.1 Height (Feet): 5 Height (Inches): 6.00 Weight (Pounds): 110 General Appearance: no apparent distress EENT: other - NGT Neck: normal alignment Cardiovascular: normal rate Respiratory/Chest: decreased breath sounds Abdomen: normal bowel sounds Pelvis: normal external exam Objective Current Medications Medications (Trade) Dose Ordered Sig/Elvia Route PRN Reason Start Time Stop Time Status Last Admin Dose Admin Acetaminophen (Tylenol) 650 mg Q4H PRN ORAL Mild Pain (Pain Scale 1-3) 09/08/17 23:15 10/08/17 23:14 09/14/17 01:19 Acetaminophen (Tylenol) 650 mg Q4H PRN ORAL fever 09/08/17 23:15 10/08/17 23:14 Amlodipine Besylate (Norvasc) 2.5 mg DAILY NG 09/12/17 10:30 10/12/17 10:29 09/14/17 09:30 Atorvastatin Calcium (Lipitor) 40 mg BEDTIME NG 09/12/17 21:00 10/12/17 20:59 09/14/17 21:00 Ceftriaxone Sodium 2 gm/ Dextrose 55 ml @ 110 mls/hr EVERY 12 HOURS IVPB 09/15/17 09:00 09/22/17 08:59 Dextrose (Dextrose 50%) STAT PRN IV Hypoglycemia 09/08/17 23:15 10/08/17 23:14 Docusate Sodium (Colace) 100 mg EVERY 12 HOURS NG 09/12/17 10:30 10/09/17 08:59 09/14/17 09:27 Folic Acid (Folate) 1 mg DAILY NG 09/12/17 10:30 10/12/17 10:29 09/14/17 09:30 Lactobacillus Acidophilus (Culturelle) 1 tab TWICE A DAY NG 09/12/17 10:30 10/12/17 10:29 09/14/17 17:27 Lansoprazole (Prevacid) 30 mg ACBREAKFAST NG 09/13/17 06:30 10/13/17 06:29 09/14/17 05:50 Magnesium Hydroxide (Mom) 30 ml HSPRN PRN NG Constipation 09/12/17 09:30 10/12/17 09:29 Methimazole (Tapazole) 10 mg DAILY NG 09/12/17 10:30 10/12/17 10:29 09/14/17 09:27 Metoprolol Tartrate (Lopressor) 25 mg EVERY 12 HOURS NG 09/12/17 10:30 10/12/17 10:29 09/14/17 21:00 Multivitamins (Multivitamins W/ Minerals 15ml Liquid) 15 ml DAILY NG 09/12/17 10:30 10/12/17 10:29 09/14/17 09:27 Nystatin (Nystatin) 5 ml THREE TIMES A DAY ORAL 09/12/17 10:30 09/19/17 10:29 09/14/17 17:27 Thiamine HCl (Vitamin B1) 100 mg DAILY NG 09/12/17 10:30 10/12/17 10:29 09/14/17 09:34 CASSIDY SANDOVAL Sep 15, 2017 06:14
[2017-09-15 07:32] LABS: BASOPHILS % (AUTO) 0.6 % (0.0-2.0); EOSINOPHILS % (AUTO) 0.9 % (0.0-3.0); HEMATOCRIT 38.4 % (42.0-52.0); HEMOGLOBIN 13.1 G/DL (14.2-18.0); LYMPHOCYTES % (AUTO) 12.8 % (20.0-45.0); MEAN CORPUSCULAR VOLUME 100 FL (80-99); NEUTROPHILS % (AUTO) 79.7 % (45.0-75.0); PLATELET COUNT 130 K/UL (150-450); RED BLOOD COUNT 3.84 M/UL (4.70-6.10); RED CELL DISTRIBUTION WIDTH 12.9 % (11.6-14.8); WHITE BLOOD COUNT 12.1 K/UL (4.8-10.8)
[2017-09-15 08:00] VITALS: BP 117/51
[2017-09-15] MEDS: Docusate 100mg/10ml Liq NG SCH ×2 (08:21→21:06)
[2017-09-15] MEDS: Thiamine 100mg tab NG SCH (08:21)
[2017-09-15] MEDS: Nystatin Susp 500,000 units/5ml ORAL SCH ×3 (08:21→18:21)
[2017-09-15 08:22] LABS: ANION GAP 8 mmol/L (5-15); BLOOD UREA NITROGEN 45 mg/dL (7-18); CARBON DIOXIDE 24 MMOL/L (21-32); CHLORIDE 110 MMOL/L (98-107); CREATININE 1.7 MG/DL (0.55-1.30); POTASSIUM 4.6 MMOL/L (3.5-5.1); SODIUM 142 MMOL/L (136-145)
[2017-09-15] MEDS: Multivitamins W/Minerals 15 ML UDC NG SCH (08:22)
[2017-09-15] MEDS: Lactobacillus-GG tablet NG SCH ×2 (08:22→18:21)
[2017-09-15] MEDS: Metoprolol 25mg tab NG SCH ×2 (08:24→21:06)
[2017-09-15] MEDS: cefTRIAXone 2 GM in NS 55 ML IVPB SCH ×2 (08:30→21:05)
--- NOTE | 2017-09-15 10:29 | Nephrology Progress Note ---
Assessment/Plan Problem List: (1) Hypernatremia Assessment: corrected (2) Acute renal failure Assessment: stable (3) Episode of generalized weakness (4) Protein-calorie malnutrition, moderate Plan TF hydrate via NG discussed with patient care assistant follow labs Subjective Subjective In NAD Objective Objective Last 24 Hour Vital Signs Date Time Temp Pulse Resp B/P (MAP) Pulse Ox O2 Delivery O2 Flow Rate FiO2 09/15/17 08:24 88 117/51 09/15/17 08:24 88 117/51 09/15/17 08:00 97.7 88 20 117/51 96 Room Air 09/15/17 04:00 97.0 105 23 129/69 95 Room Air 09/15/17 04:00 98 09/15/17 00:00 97.0 122 24 141/78 96 Room Air 09/15/17 00:00 126 09/14/17 21:00 120 118/80 09/14/17 20:00 98.7 120 22 118/80 96 Room Air 09/14/17 20:00 120 09/14/17 16:00 105 09/14/17 16:00 98.4 103 20 123/59 95 Room Air 09/14/17 12:00 97.7 91 22 127/57 95 Room Air 09/14/17 12:00 91 Intake and Output 09/14/17 09/15/17 19:00 07:00 Output Total 400 ml 450 ml Balance -400 ml -450 ml Output Urine Total 400 ml 450 ml # Bowel Movements 2 Laboratory Tests 09/15/17 06:00: White Blood Count 12.1H, Red Blood Count 3.84L, Hemoglobin 13.1L, Hematocrit 38.4L, Mean Corpuscular Volume 100H, Mean Corpuscular Hemoglobin 34.2H, Mean Corpuscular Hemoglobin Concent 34.2, Red Cell Distribution Width 12.9, Platelet Count 130L, Mean Platelet Volume 12.1H, Neutrophils (%) (Auto) 79.7H, Lymphocytes (%) (Auto) 12.8L, Monocytes (%) (Auto) 6.0, Eosinophils (%) (Auto) 0.9, Basophils (%) (Auto) 0.6, Sodium Level 142, Potassium Level 4.6, Chloride Level 110H, Carbon Dioxide Level 24, Anion Gap 8, Blood Urea Nitrogen 45H, Creatinine 1.7H, Estimat Glomerular Filtration Rate , Glucose Level 110H, Calcium Level 9.0 Height (Feet): 5 Height (Inches): 6.00 Weight (Pounds): 110 Cardiovascular: normal rate Respiratory/Chest: lungs clear Extremities: other - no edema MARYA KENDALL Sep 15, 2017 10:29
[2017-09-15 12:00] VITALS: BP 113/62
--- NOTE | 2017-09-15 13:32 | General Progress Note ---
Assessment/Plan Assessment/Plan Assessment - OBS / AMS - Poor PO - Dehydration - Azotemia - Mild thrombocytopenia Recommendations - IVF - NGT feeds - plavix and ASA on hold - PEG placement Monday - i will return Monday to see pt Subjective Allergies: Coded Allergies: MORPHINE (Verified Allergy, Unknown, 09/08/17) Subjective above noted tolerating NGT d/w RN and private duty PEG scheduled for 799 Objective Last 24 Hour Vital Signs Date Time Temp Pulse Resp B/P (MAP) Pulse Ox O2 Delivery O2 Flow Rate FiO2 09/15/17 08:24 88 117/51 09/15/17 08:24 88 117/51 09/15/17 08:00 97.7 88 20 117/51 96 Room Air 09/15/17 08:00 92 09/15/17 04:00 97.0 105 23 129/69 95 Room Air 09/15/17 04:00 98 09/15/17 00:00 97.0 122 24 141/78 96 Room Air 09/15/17 00:00 126 09/14/17 21:00 120 118/80 09/14/17 20:00 98.7 120 22 118/80 96 Room Air 09/14/17 20:00 120 09/14/17 16:00 105 09/14/17 16:00 98.4 103 20 123/59 95 Room Air Intake and Output 09/14/17 09/15/17 19:00 07:00 Output Total 400 ml 450 ml Balance -400 ml -450 ml Output Urine Total 400 ml 450 ml # Bowel Movements 2 Laboratory Tests 09/15/17 06:00: White Blood Count 12.1H, Red Blood Count 3.84L, Hemoglobin 13.1L, Hematocrit 38.4L, Mean Corpuscular Volume 100H, Mean Corpuscular Hemoglobin 34.2H, Mean Corpuscular Hemoglobin Concent 34.2, Red Cell Distribution Width 12.9, Platelet Count 130L, Mean Platelet Volume 12.1H, Neutrophils (%) (Auto) 79.7H, Lymphocytes (%) (Auto) 12.8L, Monocytes (%) (Auto) 6.0, Eosinophils (%) (Auto) 0.9, Basophils (%) (Auto) 0.6, Sodium Level 142, Potassium Level 4.6, Chloride Level 110H, Carbon Dioxide Level 24, Anion Gap 8, Blood Urea Nitrogen 45H, Creatinine 1.7H, Estimat Glomerular Filtration Rate , Glucose Level 110H, Calcium Level 9.0 Height (Feet): 5 Height (Inches): 6.00 Weight (Pounds): 110 Objective Debilitated elderly man NCAT (+) NGT supple CTA RRR soft ND NT no edema CESIA AMEZCUA Sep 15, 2017 13:32
--- NOTE | 2017-09-15 15:38 | Neurology Progress Note ---
Interim History Interim History Interim History Mr. Cordova feels better. He looks brighter. He continues to be cognitively impoverished. He continues to be motorically challenged. The left ankle is still painful and so is the right. As per his caregiver he has sores on both now. He denies any new neurologic symptoms. There has been no significant improvement in his neurologic condition. Review of Systems Neuro Review of Systems Unable to obtain. Objective Physical Exam Last Vital Signs Date Time Temp Pulse Resp B/P (MAP) Pulse Ox O2 Delivery O2 Flow Rate FiO2 09/15/17 12:00 97.0 85 20 113/62 96 Room Air Laboratory Tests Test 09/15/17 06:00 White Blood Count 12.1 K/UL (4.8-10.8) H Red Blood Count 3.84 M/UL (4.70-6.10) L Hemoglobin 13.1 G/DL (14.2-18.0) L Hematocrit 38.4 % (42.0-52.0) L Mean Corpuscular Volume 100 FL (80-99) H Mean Corpuscular Hemoglobin 34.2 PG (27.0-31.0) H Mean Corpuscular Hemoglobin Concent 34.2 G/DL (32.0-36.0) Red Cell Distribution Width 12.9 % (11.6-14.8) Platelet Count 130 K/UL (150-450) L Mean Platelet Volume 12.1 FL (6.5-10.1) H Neutrophils (%) (Auto) 79.7 % (45.0-75.0) H Lymphocytes (%) (Auto) 12.8 % (20.0-45.0) L Monocytes (%) (Auto) 6.0 % (1.0-10.0) Eosinophils (%) (Auto) 0.9 % (0.0-3.0) Basophils (%) (Auto) 0.6 % (0.0-2.0) Sodium Level 142 MMOL/L (136-145) Potassium Level 4.6 MMOL/L (3.5-5.1) Chloride Level 110 MMOL/L (98-107) H Carbon Dioxide Level 24 MMOL/L (21-32) Anion Gap 8 mmol/L (5-15) Blood Urea Nitrogen 45 mg/dL (7-18) H Creatinine 1.7 MG/DL (0.55-1.30) H Estimat Glomerular Filtration Rate mL/min (>60) Glucose Level 110 MG/DL (74-106) H Calcium Level 9.0 MG/DL (8.5-10.1) Neurologic Exam Objective PHYSICAL EXAMINATION: GENERAL: He is a well-developed but lean and ill-looking gentleman lying in bed, in no acute distress. HEAD: Normocephalic and atraumatic. NECK: No neck rigidity was observed. EENT: Examination benign except for NGT in place. NEUROLOGICAL EXAMINATION: MENTAL STATUS EXAMINATION: He was awake and alert. He was oriented to self only. He had no idea where he was or what the date was. He was unable to cooperate for further mental status tests. SPEECH: He had a mild dysarthria. LANGUAGE: He had problems with comprehension, repetition, naming, and expression of language. CRANIAL NERVE EXAMINATION: II: The visual miller were difficult to test because of his inability to cooperate. He did, however, blink to threat. He made numerous errors when he was made to count fingers. III, IV & : The external ocular movements were full, and the pupils 3 mm in diameter, equal, round, regular, and reactive to light. V: He had normal facial sensations and the temporales, masseters, and pterygoids functioned normally. VII: He had a trace right 7th central facial paresis. VIII: He was able to hear, and had no nystagmus. IX: The palate moved symmetrically on phonation. X: He had no hoarseness of voice. XI: The sternocleidomastoids and trapezii functioned normally. XII: The tongue was in the midline without any fasciculations or atrophy. MOTOR SYSTEM: The tone was increased in all 4 extremities with a combination of spasticity and Gegenhalten. Examination of muscle mass revealed no focal wasting. Examination of power was exceedingly difficult to perform because of varying degrees of cooperation. He did, however, move all 4 extremities on command with mild distal upper extremity and proximal lower extremity weakness. SENSORY EXAMINATION: He was able to discern between pinprick and light touch. He was unable to cooperate for other sensory modalities. REFLEXES: 1+ and bilaterally symmetrical at~the biceps, triceps, brachioradialis , and knees; 0 at both ankles. The plantar responses were flexor bilaterally. COORDINATION:He was significantly apractic in both his upper and lower extremities, and was unable to perform [id number] and [id number] testing. STANCE & GAIT: Were deferred. Impression/Recommendations Diagnostic Impression 1. Mr. Aashish Cordova is an 81-year-old, right-handed, gentleman, who does have a past history of hypertension, dyslipidemia, coronary artery disease - status post percutaneous intervention, chronic kidney disease, benign prostatic hypertrophy, anemia, alcoholism, influenza type A, and a possible pneumonia, and a cognitive decline for the last year. He was hospitalized for failure to thrive. 2. He feels better. He is brigher today. He continues to be cognitively impoverished and motorically challenged. 3. On neurological examination, at this time, he does have problems with orientation, recent and remote memory, visuospatial function, higher cognitive function, and language. 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 4. His laboratory data on admission revealed that his creatinine was elevated to 2.8, his BUN was elevated to 113, his Na was elevated to 162, his Cl was elevated to 122, his HB was elevated to 18 G. 5. The patient's history, neurological examination, laboratory data are most compatible with failure to thrive due to severe dehydration due to not eating or drinking. He also has an underlying advanced dementia. Recommendations 1. Continue present management. 2. Continue correction of toxic/metabolic imbalances. 3. Mobilize with PT/OT. 4. G-Tube as planned. SUSY BRICE M.D., M.S.P.H. SUSY BRICE Sep 15, 2017 15:38
[2017-09-15 16:08] VITALS: BP 116/67
[2017-09-15 20:00] VITALS: BP 118/63
[2017-09-15] MEDS: Atorvastatin 20mg tab NG SCH (21:05)
[2017-09-16] VITALS: BP 116/77
[2017-09-16 04:00] VITALS: BP 110/61
[2017-09-16 08:00] VITALS: BP 124/67
[2017-09-16] MEDS: Thiamine 100mg tab NG SCH (09:07)
[2017-09-16] MEDS: Metoprolol 25mg tab NG SCH ×2 (09:07→21:22)
[2017-09-16] MEDS: Nystatin Susp 500,000 units/5ml ORAL SCH ×3 (09:07→17:25)
[2017-09-16] MEDS: Multivitamins W/Minerals 15 ML UDC NG SCH (09:07)
[2017-09-16] MEDS: Lactobacillus-GG tablet NG SCH ×2 (09:07→17:25)
[2017-09-16] MEDS: Docusate 100mg/10ml Liq NG SCH ×2 (09:07→21:22)
[2017-09-16] MEDS: cefTRIAXone 2 GM in NS 55 ML IVPB SCH ×2 (09:08→21:22)
--- NOTE | 2017-09-16 09:49 | General Progress Note ---
Assessment/Plan Assessment/Plan Assessment - OBS / AMS - Poor PO - Dehydration - Azotemia - Mild thrombocytopenia Recommendations - IVF - NGT feeds - plavix and ASA on hold - PEG placement Monday Subjective ROS Limited/Unobtainable: No Allergies: Coded Allergies: MORPHINE (Verified Allergy, Unknown, 09/08/17) Objective Last 24 Hour Vital Signs Date Time Temp Pulse Resp B/P (MAP) Pulse Ox O2 Delivery O2 Flow Rate FiO2 09/16/17 09:07 104 124/67 09/16/17 09:07 104 124/67 09/16/17 08:00 97.5 104 21 124/67 95 Room Air 09/16/17 04:00 97.6 90 20 110/61 97 Room Air 09/16/17 04:00 101 09/16/17 00:00 103 09/16/17 00:00 97.7 102 22 116/77 96 Room Air 09/15/17 21:06 110 118/63 09/15/17 20:04 103 09/15/17 20:00 98.2 110 19 118/63 96 Room Air 09/15/17 16:08 97.7 89 20 116/67 96 09/15/17 16:00 98 09/15/17 12:00 97.0 85 20 113/62 96 Room Air 09/15/17 12:00 89 Intake and Output 09/15/17 09/16/17 19:00 07:00 Intake Total 720 ml 585 ml Output Total 700 ml 200 ml Balance 20 ml 385 ml Free Water 50 ml IV Total 55 ml Tube Feeding 720 ml 420 ml Other 60 ml Output Urine Total 700 ml 200 ml Height (Feet): 5 Height (Inches): 6.00 Weight (Pounds): 110 General Appearance: no apparent distress EENT: normal ENT inspection Neck: supple Cardiovascular: normal rate Respiratory/Chest: decreased breath sounds Abdomen: normal bowel sounds, non tender, soft Extremities: non-tender DANII HAQ Sep 16, 2017 09:49
[2017-09-16 12:00] VITALS: BP 127/73
--- NOTE | 2017-09-16 12:45 | Nephrology Progress Note ---
Assessment/Plan Problem List: (1) Hypernatremia Assessment: corrected (2) Acute renal failure Assessment: stable (3) Episode of generalized weakness (4) Protein-calorie malnutrition, moderate Plan TF hydrate via NG discussed with home care liaison follow labs Discussed with RN and Dr Au Subjective Subjective In NAD Objective Objective Last 24 Hour Vital Signs Date Time Temp Pulse Resp B/P (MAP) Pulse Ox O2 Delivery O2 Flow Rate FiO2 09/16/17 12:00 97.2 96 20 127/73 95 Room Air 09/16/17 09:07 104 124/67 09/16/17 09:07 104 124/67 09/16/17 08:00 97.5 104 21 124/67 95 Room Air 09/16/17 08:00 102 09/16/17 04:00 97.6 90 20 110/61 97 Room Air 09/16/17 04:00 101 09/16/17 00:00 103 09/16/17 00:00 97.7 102 22 116/77 96 Room Air 09/15/17 21:06 110 118/63 09/15/17 20:04 103 09/15/17 20:00 98.2 110 19 118/63 96 Room Air 09/15/17 16:08 97.7 89 20 116/67 96 09/15/17 16:00 98 Intake and Output 09/15/17 09/16/17 19:00 07:00 Intake Total 720 ml 675 ml Output Total 700 ml 200 ml Balance 20 ml 475 ml Free Water 80 ml IV Total 55 ml Tube Feeding 720 ml 480 ml Other 60 ml Output Urine Total 700 ml 200 ml Height (Feet): 5 Height (Inches): 6.00 Weight (Pounds): 110 Cardiovascular: normal rate Respiratory/Chest: lungs clear Extremities: other - no edema MARYA KENDALL Sep 16, 2017 12:45
--- NOTE | 2017-09-16 13:39 | Neurology Progress Note ---
Interim History Interim History Interim History Mr. Cordova feels about the same as yesterday.. He looks more subdued. He continues to be cognitively impoverished. He continues to be motorically challenged. The left ankle is still painful and so is the right. He denies any new neurologic symptoms. There has been no significant improvement in his neurologic condition. Plans are for a PEG on Monday. Review of Systems Neuro Review of Systems Unable to obtain. Objective Physical Exam Last Vital Signs Date Time Temp Pulse Resp B/P (MAP) Pulse Ox O2 Delivery O2 Flow Rate FiO2 09/16/17 12:00 97.2 96 20 127/73 95 Room Air Neurologic Exam Objective PHYSICAL EXAMINATION: GENERAL: He is a well-developed but lean and ill-looking gentleman lying in bed, in no acute distress. HEAD: Normocephalic and atraumatic. NECK: No neck rigidity was observed. EENT: Examination benign except for NGT in place. NEUROLOGICAL EXAMINATION: MENTAL STATUS EXAMINATION: He was awake but subdued. He was oriented to self only. He had no idea of where he was or what the date was. He was unable to cooperate for further mental status tests. SPEECH: He had a mild dysarthria. LANGUAGE: He had problems with comprehension, repetition, naming, and expression of language. CRANIAL NERVE EXAMINATION: II: The visual miller were difficult to test because of his inability to cooperate. He did, however, blink to threat. He made numerous errors when he was made to count fingers. III, IV & : The external ocular movements were full, and the pupils 3 mm in diameter, equal, round, regular, and reactive to light. V: He had normal facial sensations and the temporales, masseters, and pterygoids functioned normally. VII: He had a trace right 7th central facial paresis. VIII: He was able to hear, and had no nystagmus. IX: The palate moved symmetrically on phonation. X: He had no hoarseness of voice. XI: The sternocleidomastoids and trapezii functioned normally. XII: The tongue was in the midline without any fasciculations or atrophy. MOTOR SYSTEM: The tone was increased in all 4 extremities with a combination of spasticity and Gegenhalten. Examination of muscle mass revealed no focal wasting. Examination of power was exceedingly difficult to perform because of varying degrees of cooperation. He did, however, move all 4 extremities on command with distal upper extremity and proximal lower extremity weakness. SENSORY EXAMINATION: He was respond to deep pain. He was unable to cooperate for other sensory modalities. REFLEXES: 1+ and bilaterally symmetrical at~the biceps, triceps, brachioradialis , and knees; 0 at both ankles. The plantar responses were flexor bilaterally. COORDINATION:He was significantly apractic in both his upper and lower extremities, and was unable to perform qhyryp-wy-foic and koow-lj-[id number] testing. STANCE & GAIT: Were deferred. Impression/Recommendations Diagnostic Impression 1. Mr. Aashish Cordova is an 81-year-old, right-handed, gentleman, who does have a past history of hypertension, dyslipidemia, coronary artery disease - status post percutaneous intervention, chronic kidney disease, benign prostatic hypertrophy, anemia, alcoholism, influenza type A, and a possible pneumonia, and a cognitive decline for the last year. He was hospitalized for failure to thrive. 2. He feels better. He is subdued today. He continues to be cognitively impoverished and motorically challenged. 3. On neurological examination, at this time, he does have problems with orientation, recent and remote memory, visuospatial function, higher cognitive function, and language. 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 4. His laboratory data on admission revealed that his creatinine was elevated to 2.8, his BUN was elevated to 113, his Na was elevated to 162, his Cl was elevated to 122, his HB was elevated to 18 G. 5. The patient's history, neurological examination, laboratory data are most compatible with failure to thrive due to severe dehydration due to not eating or drinking. He also has an underlying advanced dementia. Recommendations 1. Continue present management. 2. Continue correction of toxic/metabolic imbalances. 3. Mobilize with PT/OT. 4. G-Tube as planned. SUSY BRICE M.D., M.S.P.[facility]. SUSY BRICE Sep 16, 2017 13:39
[2017-09-16 16:00] VITALS: BP 139/66
[2017-09-16 20:00] VITALS: BP 125/66
--- NOTE | 2017-09-16 20:25 | General Progress Note ---
Assessment/Plan Assessment/Plan dehydration renal failure hypernatremia urinary obstruction dementia ho alcoholism hyperthyrodism fluids nephrolgy fup has rasmussen urolgy fup monitor labs dw Dr Moura started on tapazole gi eval appreciated dw Dr Dorado planning on gtube placement, asa plavix to be held ct noted dvt and ulcer prophylaxis pt/ot clarence Feng states symptoms from worsining dementia and encephalopathy urology fup re rasmussen clarence Au will leave in for now Subjective Allergies: Coded Allergies: MORPHINE (Verified Allergy, Unknown, 09/08/17) Subjective this note reflects my visity with patient 09/13 more alert but doesnt fallow command fully, has ng placed, Dr Nguyen planning on gtube placement on monday Objective Last 24 Hour Vital Signs Date Time Temp Pulse Resp B/P (MAP) Pulse Ox O2 Delivery O2 Flow Rate FiO2 09/16/17 16:00 97.1 102 21 139/66 95 Room Air 09/16/17 16:00 104 09/16/17 12:00 95 09/16/17 12:00 97.2 96 20 127/73 95 Room Air 09/16/17 09:07 104 124/67 09/16/17 09:07 104 124/67 09/16/17 08:00 97.5 104 21 124/67 95 Room Air 09/16/17 08:00 102 09/16/17 04:00 97.6 90 20 110/61 97 Room Air 09/16/17 04:00 101 09/16/17 00:00 103 09/16/17 00:00 97.7 102 22 116/77 96 Room Air 09/15/17 21:06 110 118/63 Intake and Output 09/15/17 09/16/17 19:00 07:00 Intake Total 720 ml 675 ml Output Total 700 ml 200 ml Balance 20 ml 475 ml Free Water 80 ml IV Total 55 ml Tube Feeding 720 ml 480 ml Other 60 ml Output Urine Total 700 ml 200 ml Height (Feet): 5 Height (Inches): 6.00 Weight (Pounds): 110 Cardiovascular: normal rate Objective ncat peerla temporal wasting mouth moist mucous membrane YANET MEDELLIN Sep 16, 2017 20:25
[2017-09-16] MEDS: Atorvastatin 20mg tab NG SCH (21:22)
[2017-09-16] MEDS: Tamsulosin 0.4mg cap ORAL SCH (21:22)
[2017-09-17] VITALS: BP 124/65
[2017-09-17 04:00] VITALS: BP 138/76
[2017-09-17 05:01] LABS: APPEARANCE,URINE CLEAR; BILIRUBIN, URINE NEGATIVE (NEGATIVE); COLOR,URINE YELLOW; GLUCOSE, URINE (UA) NEGATIVE (NEGATIVE); KETONES,URINE NEGATIVE (NEGATIVE); LEUKOCYTE ESTERASE ,URINE NEGATIVE (NEGATIVE); NITRITE,URINE NEGATIVE (NEGATIVE); PH,URINE 5 (4.5-8.0); PROTEIN,URINE 2+ (NEGATIVE); UROBILINOGEN,URINE NORMAL MG/DL (0.0-1.0)
[2017-09-17 07:11] LABS: BASOPHILS % (AUTO) 0.8 % (0.0-2.0); EOSINOPHILS % (AUTO) 2.1 % (0.0-3.0); HEMATOCRIT 39.4 % (42.0-52.0); HEMOGLOBIN 13.4 G/DL (14.2-18.0); LYMPHOCYTES % (AUTO) 9.3 % (20.0-45.0); MEAN CORPUSCULAR VOLUME 100 FL (80-99); MONOCYTES % (AUTO) 6.6 % (1.0-10.0); NEUTROPHILS % (AUTO) 81.1 % (45.0-75.0); PLATELET COUNT 188 K/UL (150-450); RED BLOOD COUNT 3.92 M/UL (4.70-6.10); RED CELL DISTRIBUTION WIDTH 12.8 % (11.6-14.8); WHITE BLOOD COUNT 11.3 K/UL (4.8-10.8)
[2017-09-17 07:52] LABS: ALANINE AMINOTRANSFERASE 98 U/L (12-78); ALBUMIN 2.2 G/DL (3.4-5.0); ALBUMIN/GLOBULIN RATIO 0.4 (1.0-2.7); ALKALINE PHOSPHATASE 110 U/L (46-116); ANION GAP 7 mmol/L (5-15); ASPARTATE AMINO TRANSFERASE 70 U/L (15-37); BILIRUBIN,TOTAL 0.2 MG/DL (0.2-1.0); BLOOD UREA NITROGEN 47 mg/dL (7-18); CALCIUM 9.3 MG/DL (8.5-10.1); CARBON DIOXIDE 25 MMOL/L (21-32); CHLORIDE 111 MMOL/L (98-107); CREATININE 1.6 MG/DL (0.55-1.30); POTASSIUM 4.8 MMOL/L (3.5-5.1); SODIUM 143 MMOL/L (136-145)
[2017-09-17 08:00] VITALS: BP 117/76
--- NOTE | 2017-09-17 08:29 | General Progress Note ---
Assessment/Plan Assessment/Plan Assessment - OBS / AMS - Poor PO - Dehydration - Azotemia - Mild thrombocytopenia Recommendations - IVF - NGT feeds - plavix and ASA on hold - PEG placement Monday Subjective ROS Limited/Unobtainable: No Allergies: Coded Allergies: MORPHINE (Verified Allergy, Unknown, 09/08/17) Objective Last 24 Hour Vital Signs Date Time Temp Pulse Resp B/P (MAP) Pulse Ox O2 Delivery O2 Flow Rate FiO2 09/17/17 04:00 98.1 107 18 138/76 93 Room Air 09/17/17 04:00 106 09/17/17 00:00 96.9 102 18 124/65 94 Room Air 09/17/17 00:00 95 09/16/17 21:22 100 125/66 09/16/17 20:00 107 09/16/17 20:00 96.7 100 19 125/66 95 Room Air 09/16/17 16:00 97.1 102 21 139/66 95 Room Air 09/16/17 16:00 104 09/16/17 12:00 95 09/16/17 12:00 97.2 96 20 127/73 95 Room Air 09/16/17 09:07 104 124/67 09/16/17 09:07 104 124/67 Intake and Output 09/16/17 09/17/17 19:00 07:00 Intake Total 1065 ml 905 ml Output Total 350 ml 350 ml Balance 715 ml 555 ml Free Water 290 ml 130 ml IV Total 55 ml 55 ml Tube Feeding 720 ml 720 ml Output Urine Total 350 ml 350 ml # Bowel Movements 1 Laboratory Tests 09/17/17 04:32: Urine Color Yellow, Urine Appearance Clear, Urine pH 5, Urine Specific [place] 1.020, Urine Protein 2+H, Urine Glucose (UA) Negative, Urine Ketones Negative, Urine Occult Blood 4+H, Urine Nitrite Negative, Urine Bilirubin Negative, Urine Urobilinogen Normal, Urine Leukocyte Esterase Negative, Urine RBC 10-15H, Urine WBC 0-2, Urine Squamous Epithelial Cells Occasional, Urine Bacteria Occasional, Urine Hyaline Casts 0-2H 09/17/17 04:45: White Blood Count 11.3H, Red Blood Count 3.92L, Hemoglobin 13.4L, Hematocrit 39.4L, Mean Corpuscular Volume 100H, Mean Corpuscular Hemoglobin 34.2H, Mean Corpuscular Hemoglobin Concent 34.0, Red Cell Distribution Width 12.8, Platelet Count 188, Mean Platelet Volume 9.7, Neutrophils (%) (Auto) 81.1H, Lymphocytes ( %) (Auto) 9.3L, Monocytes (%) (Auto) 6.6, Eosinophils (%) (Auto) 2.1, Basophils (%) (Auto) 0.8, Sodium Level 143, Potassium Level 4.8, Chloride Level 111H, Carbon Dioxide Level 25, Anion Gap 7, Blood Urea Nitrogen 47H, Creatinine 1.6H, Estimat Glomerular Filtration Rate , Glucose Level 136H, Calcium Level 9.3, Total Bilirubin 0.2, Aspartate Amino Transf (AST/SGOT) 70H, Alanine Aminotransferase (ALT/SGPT) 98H, Alkaline Phosphatase 110, Total Protein 7.2, Albumin 2.2L, Globulin 5.0, Albumin/Globulin Ratio 0.4L Height (Feet): 5 Height (Inches): 6.00 Weight (Pounds): 110 General Appearance: no apparent distress EENT: normal ENT inspection Neck: supple Cardiovascular: normal rate Respiratory/Chest: decreased breath sounds Abdomen: normal bowel sounds, non tender, soft Extremities: non-tender DANII HAQ Sep 17, 2017 08:29
[2017-09-17] MEDS: Docusate 100mg/10ml Liq NG SCH ×2 (09:01→22:05)
[2017-09-17] MEDS: Nystatin Susp 500,000 units/5ml ORAL SCH ×3 (09:02→17:26)
[2017-09-17] MEDS: Thiamine 100mg tab NG SCH (09:02)
[2017-09-17] MEDS: Metoprolol 25mg tab NG SCH ×2 (09:03→22:05)
[2017-09-17] MEDS: Lactobacillus-GG tablet NG SCH ×2 (09:03→17:26)
[2017-09-17] MEDS: Multivitamins W/Minerals 15 ML UDC NG SCH (09:04)
[2017-09-17] MEDS: cefTRIAXone 2 GM in NS 55 ML IVPB SCH (09:05)
--- NOTE | 2017-09-17 11:17 | General Progress Note ---
Assessment/Plan Assessment/Plan dehydration renal failure hypernatremia urinary obstruction dementia ho alcoholism hyperthyrodism buttock wound fluids nephrolgy fup has rasmussen urolgy fup monitor labs dw Dr Moura started on tapazole gi eval appreciated dw Dr Dorado planning on gtube placement, asa plavix to be held ct noted wound care per Dr holloway will hav ID see patient as well dvt and ulcer prophylaxis pt/ot clarence Feng states symptoms from worsining dementia and encephalopathy urology fup re rasmussen clarence Au will leave in for now Subjective Allergies: Coded Allergies: MORPHINE (Verified Allergy, Unknown, 09/08/17) Subjective awake nonverbal getting ng feedings Objective Last 24 Hour Vital Signs Date Time Temp Pulse Resp B/P (MAP) Pulse Ox O2 Delivery O2 Flow Rate FiO2 09/17/17 09:03 112 117/76 09/17/17 09:02 112 117/76 09/17/17 08:00 108 09/17/17 08:00 98.2 112 20 117/76 95 Room Air 09/17/17 04:00 98.1 107 18 138/76 93 Room Air 09/17/17 04:00 106 09/17/17 00:00 96.9 102 18 124/65 94 Room Air 09/17/17 00:00 95 09/16/17 21:22 100 125/66 09/16/17 20:00 107 09/16/17 20:00 96.7 100 19 125/66 95 Room Air 09/16/17 16:00 97.1 102 21 139/66 95 Room Air 09/16/17 16:00 104 09/16/17 12:00 95 09/16/17 12:00 97.2 96 20 127/73 95 Room Air Intake and Output 09/16/17 09/17/17 19:00 07:00 Intake Total 1065 ml 905 ml Output Total 350 ml 350 ml Balance 715 ml 555 ml Free Water 290 ml 130 ml IV Total 55 ml 55 ml Tube Feeding 720 ml 720 ml Output Urine Total 350 ml 350 ml # Bowel Movements 1 Laboratory Tests 09/17/17 04:32: Urine Color Yellow, Urine Appearance Clear, Urine pH 5, Urine Specific [place] 1.020, Urine Protein 2+H, Urine Glucose (UA) Negative, Urine Ketones Negative, Urine Occult Blood 4+H, Urine Nitrite Negative, Urine Bilirubin Negative, Urine Urobilinogen Normal, Urine Leukocyte Esterase Negative, Urine RBC 10-15H, Urine WBC 0-2, Urine Squamous Epithelial Cells Occasional, Urine Bacteria Occasional, Urine Hyaline Casts 0-2H 09/17/17 04:45: White Blood Count 11.3H, Red Blood Count 3.92L, Hemoglobin 13.4L, Hematocrit 39.4L, Mean Corpuscular Volume 100H, Mean Corpuscular Hemoglobin 34.2H, Mean Corpuscular Hemoglobin Concent 34.0, Red Cell Distribution Width 12.8, Platelet Count 188, Mean Platelet Volume 9.7, Neutrophils (%) (Auto) 81.1H, Lymphocytes ( %) (Auto) 9.3L, Monocytes (%) (Auto) 6.6, Eosinophils (%) (Auto) 2.1, Basophils (%) (Auto) 0.8, Sodium Level 143, Potassium Level 4.8, Chloride Level 111H, Carbon Dioxide Level 25, Anion Gap 7, Blood Urea Nitrogen 47H, Creatinine 1.6H, Estimat Glomerular Filtration Rate , Glucose Level 136H, Calcium Level 9.3, Total Bilirubin 0.2, Aspartate Amino Transf (AST/SGOT) 70H, Alanine Aminotransferase (ALT/SGPT) 98H, Alkaline Phosphatase 110, Total Protein 7.2, Albumin 2.2L, Globulin 5.0, Albumin/Globulin Ratio 0.4L Height (Feet): 5 Height (Inches): 6.00 Weight (Pounds): 110 EENT: PERRL/EOMI Neck: supple Cardiovascular: normal rate Respiratory/Chest: lungs clear Abdomen: soft Objective ncat peerla temporal wasting mouth moist mucous membrane buttcok wound YANET MEDELLIN Sep 17, 2017 11:17
--- NOTE | 2017-09-17 11:36 | Nephrology Progress Note ---
Assessment/Plan Problem List: (1) Hypernatremia Assessment: corrected (2) Acute renal failure Assessment: stable (3) Episode of generalized weakness (4) Protein-calorie malnutrition, moderate Plan cont with TF follow BMP Subjective Subjective In NAD Objective Objective Last 24 Hour Vital Signs Date Time Temp Pulse Resp B/P (MAP) Pulse Ox O2 Delivery O2 Flow Rate FiO2 09/17/17 09:03 112 117/76 09/17/17 09:02 112 117/76 09/17/17 08:00 108 09/17/17 08:00 98.2 112 20 117/76 95 Room Air 09/17/17 04:00 98.1 107 18 138/76 93 Room Air 09/17/17 04:00 106 09/17/17 00:00 96.9 102 18 124/65 94 Room Air 09/17/17 00:00 95 09/16/17 21:22 100 125/66 09/16/17 20:00 107 09/16/17 20:00 96.7 100 19 125/66 95 Room Air 09/16/17 16:00 97.1 102 21 139/66 95 Room Air 09/16/17 16:00 104 09/16/17 12:00 95 09/16/17 12:00 97.2 96 20 127/73 95 Room Air Intake and Output 09/16/17 09/17/17 19:00 07:00 Intake Total 1065 ml 905 ml Output Total 350 ml 350 ml Balance 715 ml 555 ml Free Water 290 ml 130 ml IV Total 55 ml 55 ml Tube Feeding 720 ml 720 ml Output Urine Total 350 ml 350 ml # Bowel Movements 1 Laboratory Tests 09/17/17 04:32: Urine Color Yellow, Urine Appearance Clear, Urine pH 5, Urine Specific [place] 1.020, Urine Protein 2+H, Urine Glucose (UA) Negative, Urine Ketones Negative, Urine Occult Blood 4+H, Urine Nitrite Negative, Urine Bilirubin Negative, Urine Urobilinogen Normal, Urine Leukocyte Esterase Negative, Urine RBC 10-15H, Urine WBC 0-2, Urine Squamous Epithelial Cells Occasional, Urine Bacteria Occasional, Urine Hyaline Casts 0-2H 09/17/17 04:45: White Blood Count 11.3H, Red Blood Count 3.92L, Hemoglobin 13.4L, Hematocrit 39.4L, Mean Corpuscular Volume 100H, Mean Corpuscular Hemoglobin 34.2H, Mean Corpuscular Hemoglobin Concent 34.0, Red Cell Distribution Width 12.8, Platelet Count 188, Mean Platelet Volume 9.7, Neutrophils (%) (Auto) 81.1H, Lymphocytes ( %) (Auto) 9.3L, Monocytes (%) (Auto) 6.6, Eosinophils (%) (Auto) 2.1, Basophils (%) (Auto) 0.8, Sodium Level 143, Potassium Level 4.8, Chloride Level 111H, Carbon Dioxide Level 25, Anion Gap 7, Blood Urea Nitrogen 47H, Creatinine 1.6H, Estimat Glomerular Filtration Rate , Glucose Level 136H, Calcium Level 9.3, Total Bilirubin 0.2, Aspartate Amino Transf (AST/SGOT) 70H, Alanine Aminotransferase (ALT/SGPT) 98H, Alkaline Phosphatase 110, Total Protein 7.2, Albumin 2.2L, Globulin 5.0, Albumin/Globulin Ratio 0.4L Height (Feet): 5 Height (Inches): 6.00 Weight (Pounds): 110 Cardiovascular: normal rate Respiratory/Chest: rhonchi - bilaterally Extremities: other - no edema MARYA KENDALL Sep 17, 2017 11:36
[2017-09-17 12:00] VITALS: BP 142/71
[2017-09-17] MEDS ORDERED: Vancomycin 1250mg/D5W 250ml IVPB ONE (13:30)
--- NOTE | 2017-09-17 15:16 | Neurology Progress Note ---
Interim History Interim History Interim History Mr. Cordova feels better.. He continues to be subdued. He continues to be cognitively impoverished. He continues to be motorically challenged. The left ankle is still painful and so is the right. He denies any new neurologic symptoms. There has been no significant improvement in his neurologic condition. Plans are for a PEG tomorrow. Review of Systems Neuro Review of Systems Unable to obtain. Objective Physical Exam Last Vital Signs Date Time Temp Pulse Resp B/P (MAP) Pulse Ox O2 Delivery O2 Flow Rate FiO2 09/17/17 12:00 98.4 100 20 142/71 94 Room Air Laboratory Tests Test 09/17/17 04:32 09/17/17 04:45 Urine Color Yellow Urine Appearance Clear Urine pH 5 (4.5-8.0) Urine Specific [place] 1.020 (1.005-1.035) Urine Protein 2+ (NEGATIVE) H Urine Glucose (UA) Negative (NEGATIVE) Urine Ketones Negative (NEGATIVE) Urine Occult Blood 4+ (NEGATIVE) H Urine Nitrite Negative (NEGATIVE) Urine Bilirubin Negative (NEGATIVE) Urine Urobilinogen Normal MG/DL (0.0-1.0) Urine Leukocyte Esterase Negative (NEGATIVE) Urine RBC 10-15 /HPF (0 - 0) H Urine WBC 0-2 /HPF (0 - 0) Urine Squamous Epithelial Cells Occasional /LPF Urine Bacteria Occasional /HPF (NONE) Urine Hyaline Casts 0-2 /LPF (NONE) H White Blood Count 11.3 K/UL (4.8-10.8) H Red Blood Count 3.92 M/UL (4.70-6.10) L Hemoglobin 13.4 G/DL (14.2-18.0) L Hematocrit 39.4 % (42.0-52.0) L Mean Corpuscular Volume 100 FL (80-99) H Mean Corpuscular Hemoglobin 34.2 PG (27.0-31.0) H Mean Corpuscular Hemoglobin Concent 34.0 G/DL (32.0-36.0) Red Cell Distribution Width 12.8 % (11.6-14.8) Platelet Count 188 K/UL (150-450) Mean Platelet Volume 9.7 FL (6.5-10.1) Neutrophils (%) (Auto) 81.1 % (45.0-75.0) H Lymphocytes (%) (Auto) 9.3 % (20.0-45.0) L Monocytes (%) (Auto) 6.6 % (1.0-10.0) Eosinophils (%) (Auto) 2.1 % (0.0-3.0) Basophils (%) (Auto) 0.8 % (0.0-2.0) Sodium Level 143 MMOL/L (136-145) Potassium Level 4.8 MMOL/L (3.5-5.1) Chloride Level 111 MMOL/L (98-107) H Carbon Dioxide Level 25 MMOL/L (21-32) Anion Gap 7 mmol/L (5-15) Blood Urea Nitrogen 47 mg/dL (7-18) H Creatinine 1.6 MG/DL (0.55-1.30) H Estimat Glomerular Filtration Rate mL/min (>60) Glucose Level 136 MG/DL (74-106) H Calcium Level 9.3 MG/DL (8.5-10.1) Total Bilirubin 0.2 MG/DL (0.2-1.0) Aspartate Amino Transf (AST/SGOT) 70 U/L (15-37) H Alanine Aminotransferase (ALT/SGPT) 98 U/L (12-78) H Alkaline Phosphatase 110 U/L (46-116) Total Protein 7.2 G/DL (6.4-8.2) Albumin 2.2 G/DL (3.4-5.0) L Globulin 5.0 g/dL Albumin/Globulin Ratio 0.4 (1.0-2.7) L Neurologic Exam Objective PHYSICAL EXAMINATION: GENERAL: He is a well-developed but lean and ill-looking gentleman lying in bed, in no acute distress. HEAD: Normocephalic and atraumatic. NECK: No neck rigidity was observed. EENT: Examination benign except for NGT in place. NEUROLOGICAL EXAMINATION: MENTAL STATUS EXAMINATION: He was awake but subdued. He was oriented to self only. He had no idea of where he was or what the date was. He was unable to cooperate for further mental status tests. SPEECH: He had a mild dysarthria. LANGUAGE: He had problems with comprehension, repetition, naming, and expression of language. CRANIAL NERVE EXAMINATION: II: The visual miller were difficult to test because of his inability to cooperate. He did, however, blink to threat. He was unable to count fingers. He also had problems recognizing objects held in front of him. III, IV & : The external ocular movements were full, and the pupils 3 mm in diameter, equal, round, regular, and reactive to light. V: He had normal facial sensations and the temporales, masseters, and pterygoids functioned normally. VII: He had a trace right 7th central facial paresis. VIII: He was able to hear, and had no nystagmus. IX: The palate moved symmetrically on phonation. X: He had no hoarseness of voice. XI: The sternocleidomastoids and trapezii functioned normally. XII: The tongue was in the midline without any fasciculations or atrophy. MOTOR SYSTEM: The tone was increased in all 4 extremities with a combination of spasticity and Gegenhalten. Examination of muscle mass revealed no focal wasting. Examination of power was exceedingly difficult to perform because of varying degrees of cooperation. He did, however, move all 4 extremities on command with distal upper extremity and proximal an distal lower extremity weakness. SENSORY EXAMINATION: He did respond to deep pain. He was unable to cooperate for other sensory modalities. REFLEXES: 1+ and bilaterally symmetrical at the biceps, triceps, brachioradialis , and knees; 0 at both ankles. The plantar responses were flexor bilaterally. COORDINATION:He was significantly apractic in both his upper and lower extremities, and was unable to perform [id number] and [id number] testing. STANCE & GAIT: Were deferred. Impression/Recommendations Diagnostic Impression 1. Mr. Aashish Cordova is an 81-year-old, right-handed, gentleman, who does have a past history of hypertension, dyslipidemia, coronary artery disease - status post percutaneous intervention, chronic kidney disease, benign prostatic hypertrophy, anemia, alcoholism, influenza type A, and a possible pneumonia, and a cognitive decline for the last year. He was hospitalized for failure to thrive. 2. He feels better. He is subdued today. He continues to be cognitively impoverished and motorically challenged. 3. On neurological examination, at this time, he does have problems with orientation, recent and remote memory, visuospatial function, higher cognitive function, and language. 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 4. His laboratory data on admission revealed that his creatinine was elevated to 2.8, his BUN was elevated to 113, his Na was elevated to 162, his Cl was elevated to 122, his HB was elevated to 18 G. 5. The patient's history, neurological examination, laboratory data are most compatible with failure to thrive due to severe dehydration due to not eating or drinking. He also has an underlying advanced dementia. Recommendations 1. Continue present management. 2. Continue correction of toxic/metabolic imbalances. 3. Mobilize with PT/OT. 4. G-Tube as planned. SUSY BRICE M.D., M.S.P.H. SUSY BRICE Sep 17, 2017 15:16
--- NOTE | 2017-09-17 15:51 | Urology Progress Note ---
Assessment/Plan Assessment/Plan urinary retention BPH hx neurogenic bladder urethral stricture hematuria pyuria proteinuria ROMELIA/CRI renal cyst would keep rasmussen indwelling until pt more medically stable, alert and ambulatory hand irrigate PRN monitor renal fxn d/w Dr. Bonds who agrees I will be available if needed Subjective Allergies: Coded Allergies: MORPHINE (Verified Allergy, Unknown, 09/08/17) Subjective all noted Objective Last 24 Hour Vital Signs Date Time Temp Pulse Resp B/P (MAP) Pulse Ox O2 Delivery O2 Flow Rate FiO2 09/17/17 12:00 98.4 100 20 142/71 94 Room Air 09/17/17 12:00 102 09/17/17 09:03 112 117/76 09/17/17 09:02 112 117/76 09/17/17 08:00 108 09/17/17 08:00 98.2 112 20 117/76 95 Room Air 09/17/17 04:00 98.1 107 18 138/76 93 Room Air 09/17/17 04:00 106 09/17/17 00:00 96.9 102 18 124/65 94 Room Air 09/17/17 00:00 95 09/16/17 21:22 100 125/66 09/16/17 20:00 107 09/16/17 20:00 96.7 100 19 125/66 95 Room Air 09/16/17 16:00 97.1 102 21 139/66 95 Room Air 09/16/17 16:00 104 Intake and Output 09/16/17 09/17/17 19:00 07:00 Intake Total 1065 ml 905 ml Output Total 350 ml 350 ml Balance 715 ml 555 ml Free Water 290 ml 130 ml IV Total 55 ml 55 ml Tube Feeding 720 ml 720 ml Output Urine Total 350 ml 350 ml # Bowel Movements 1 Microbiology Date/Time Source Procedure Growth Status 09/08/17 19:00 Blood Blood Culture - Final NO GROWTH AFTER 5 DAYS Complete 09/09/17 00:22 Nasal Nares MRSA Culture - Final NO METHICILLIN RESISTANT STAPH AUREUS... Complete 09/15/17 06:00 Indwelling Cath Urine Culture - Preliminary NO GROWTH AFTER 24 HOURS Resulted 09/09/17 00:22 Rectum VRE Culture - Final NO VANCOMYCIN RESISTANT ENTEROCOCCUS ... Complete Current Medications Medications (Trade) Dose Ordered Sig/Elvia Route PRN Reason Start Time Stop Time Status Last Admin Dose Admin Acetaminophen (Tylenol) 650 mg Q4H PRN ORAL Mild Pain (Pain Scale 1-3) 09/08/17 23:15 10/08/17 23:14 09/14/17 01:19 Acetaminophen (Tylenol) 650 mg Q4H PRN ORAL fever 09/08/17 23:15 10/08/17 23:14 Amlodipine Besylate (Norvasc) 2.5 mg DAILY NG 09/12/17 10:30 10/12/17 10:29 09/17/17 09:02 Atorvastatin Calcium (Lipitor) 40 mg BEDTIME NG 09/12/17 21:00 10/12/17 20:59 09/16/17 21:22 Cefazolin Sodium 50 ml @ 100 mls/hr ONCE ONCE IV 09/18/17 06:30 09/18/17 06:59 Dextrose (Dextrose 50%) STAT PRN IV Hypoglycemia 09/08/17 23:15 10/08/17 23:14 Docusate Sodium (Colace) 100 mg EVERY 12 HOURS NG 09/12/17 10:30 10/09/17 08:59 09/17/17 09:01 Folic Acid (Folate) 1 mg DAILY NG 09/12/17 10:30 10/12/17 10:29 09/17/17 09:02 Lactobacillus Acidophilus (Culturelle) 1 tab TWICE A DAY NG 09/12/17 10:30 10/12/17 10:29 09/17/17 09:03 Lansoprazole (Prevacid) 30 mg ACBREAKFAST NG 09/13/17 06:30 10/13/17 06:29 09/17/17 06:37 Levofloxacin (Levaquin) 250 mg DAILY NG 09/17/17 13:00 09/24/17 12:59 09/17/17 14:08 Magnesium Hydroxide (Mom) 30 ml HSPRN PRN NG Constipation 09/12/17 09:30 10/12/17 09:29 Methimazole (Tapazole) 10 mg DAILY NG 09/12/17 10:30 10/12/17 10:29 09/17/17 09:03 Metoprolol Tartrate (Lopressor) 25 mg EVERY 12 HOURS NG 09/12/17 10:30 10/12/17 10:29 09/17/17 09:03 Multivitamins (Multivitamins W/ Minerals 15ml Liquid) 15 ml DAILY NG 09/12/17 10:30 10/12/17 10:29 09/17/17 09:04 Mupirocin (Bactroban Oint) 1 applic DAILY TOPIC 09/16/17 14:00 09/21/17 13:59 09/17/17 09:08 Nystatin (Nystatin) 5 ml THREE TIMES A DAY ORAL 09/12/17 10:30 09/19/17 10:29 09/17/17 14:08 Tamsulosin HCl (Flomax) 0.4 mg BEDTIME ORAL 09/16/17 21:00 10/16/17 20:59 09/16/17 21:22 Thiamine HCl (Vitamin B1) 100 mg DAILY NG 09/12/17 10:30 10/12/17 10:29 09/17/17 09:02 Vancomycin HCl (Vanco rx to dose) 1 ea DAILY PRN MISC Per rx protocol 09/17/17 11:45 10/17/17 11:44 Vancomycin/Sodium Chloride 250 ml @ 166.667 mls/hr Q24H IVPB 09/18/17 13:00 09/23/17 12:59 Laboratory Tests 09/17/17 04:32: Urine Color Yellow, Urine Appearance Clear, Urine pH 5, Urine Specific [place] 1.020, Urine Protein 2+H, Urine Glucose (UA) Negative, Urine Ketones Negative, Urine Occult Blood 4+H, Urine Nitrite Negative, Urine Bilirubin Negative, Urine Urobilinogen Normal, Urine Leukocyte Esterase Negative, Urine RBC 10-15H, Urine WBC 0-2, Urine Squamous Epithelial Cells Occasional, Urine Bacteria Occasional, Urine Hyaline Casts 0-2H 09/17/17 04:45: White Blood Count 11.3H, Red Blood Count 3.92L, Hemoglobin 13.4L, Hematocrit 39.4L, Mean Corpuscular Volume 100H, Mean Corpuscular Hemoglobin 34.2H, Mean Corpuscular Hemoglobin Concent 34.0, Red Cell Distribution Width 12.8, Platelet Count 188, Mean Platelet Volume 9.7, Neutrophils (%) (Auto) 81.1H, Lymphocytes ( %) (Auto) 9.3L, Monocytes (%) (Auto) 6.6, Eosinophils (%) (Auto) 2.1, Basophils (%) (Auto) 0.8, Sodium Level 143, Potassium Level 4.8, Chloride Level 111H, Carbon Dioxide Level 25, Anion Gap 7, Blood Urea Nitrogen 47H, Creatinine 1.6H, Estimat Glomerular Filtration Rate , Glucose Level 136H, Calcium Level 9.3, Total Bilirubin 0.2, Aspartate Amino Transf (AST/SGOT) 70H, Alanine Aminotransferase (ALT/SGPT) 98H, Alkaline Phosphatase 110, Total Protein 7.2, Albumin 2.2L, Globulin 5.0, Albumin/Globulin Ratio 0.4L Height (Feet): 5 Height (Inches): 6.00 Weight (Pounds): 110 Objective exam stable repeat UA (09/17) noted MARIA D SORTO Sep 17, 2017 15:51
[2017-09-17 16:00] VITALS: BP 143/69
[2017-09-17 20:00] VITALS: BP 134/67
[2017-09-17] MEDS: Atorvastatin 20mg tab NG SCH (22:03)
[2017-09-17] MEDS: Tamsulosin 0.4mg cap ORAL SCH (22:05)
--- NOTE | 2017-09-17 23:05 | Consultation ---
DATE OF CONSULTATION: 09/16/2017 SECOND OPINION UROLOGY CONSULTATION CONSULTING PHYSICIAN: Adi Au M.D. REFERRING PHYSICIAN: Quintin Walker M.D. REASON FOR CONSULTATION: For evaluation of indwelling Mack. HISTORY OF PRESENT ILLNESS: This is an 81-year-old male. He was brought to the emergency room because of failure to thrive and weakness after a bout of flu. He was noted to have difficult catheterization and he required placement of a Mack catheter using a catheter guide, which was done by Dr. Bonds. Apparently, there was a urethral stricture noted. The patient has had the Mack catheter indwelling. Second opinion Urology evaluation was requested. PAST MEDICAL HISTORY: Significant for above. Also history of hyperlipidemia, history of alcoholic dementia, encephalopathy, transaminitis, hypertension, renal artery stenosis, history of BPH and UTIs, neurogenic bladder history, and history of chronic renal insufficiency. PAST SURGICAL HISTORY: Unknown. MEDICATIONS: Current medication list was reviewed. Here in the hospital, the patient is on Ancef, Rocephin, Prevacid, Lipitor, Norvasc, folate, Tapazole, Lopressor, nystatin, Colace, and MOM. ALLERGIES: To morphine. SOCIAL HISTORY: The patient does have a history of alcoholism. FAMILY HISTORY: Unable to obtain. REVIEW OF SYSTEMS: Unable to obtain. PHYSICAL EXAMINATION: GENERAL: An elderly-appearing male, cachectic. VITAL SIGNS: Temperature is 97.2, blood pressure is 127/73. ABDOMEN: Soft. NECK: Supple. NG tube is in place. Mack is in place. Urine is grossly yellow. LABORATORY DATA: His last UA showed 10-15 WBCs. He had 20-30 RBCs and 2+ protein. His urine culture from 09/11/2017 was negative, one from yesterday still no growth. His white count is 12.1, hemoglobin 13.1. BUN is 45, creatinine is 1.7. He did have a creatinine of 2.8 at the time of admission. DIAGNOSTIC IMAGING STUDIES: The patient had a renal ultrasound, which did not show hydronephrosis. There was mention of renal cyst. He had a CT scan of the abdomen and pelvis. There was mention of renal cyst, also some thickening of the bladder wall. IMPRESSION: 1. Urinary retention history. 2. Benign prostatic hypertrophy history. 3. Probable neurogenic bladder. 4. Urethral stricture. 5. Renal insufficiency, acute on chronic. 6. Hematuria. 7. Proteinuria. 8. Pyuria. 9. Renal cyst. 10. Possible cystitis. PLAN AND DISCUSSION: Again as noted above, the patient did have a Mack catheter placed, which apparently was a difficult catheterization because of stricture. Catheter is indwelling and it is draining well. He does have baseline renal insufficiency and his renal function has stabilized. At this time, I will add tamsulosin 0.4 mg daily, but because of the patient's medical condition and the fact that he is weak and essentially bed bound, I would recommend to keep the Mack catheter indwelling for now until he has more strength and he is more ambulatory, after which the catheter can be discontinued for voiding trial. This can be done as an outpatient. I will also recommend cystoscopy at a later time once he is more medically stable. Thank you, Dr. Walker, for asking me to participate in this consultation. Adi Au M.D. DR: Ketan JOB#: [id number] CC: Quintin Walker M.D.; Fax#: [phone] MARYA KENDALL M.D. ; FAX#: [phone]
[2017-09-18] VITALS (10 sets, daily range): BP systolic 102–139; BP diastolic 59–70
--- NOTE | 2017-09-18 02:45 | Consultation ---
DATE OF CONSULTATION: 09/17/2017 NOTE: POOR AUDIO INFECTIOUS DISEASES CONSULTATION This consult is for coverage of Dr. Pal. CONSULTING PHYSICIAN: Al Payne M.D. PRIMARY ATTENDING PHYSICIAN: Quintin Walker M.D. REASON FOR CONSULTATION: Buttock cellulitis, wound infection. HISTORY OF PRESENT ILLNESS: The patient is an 81-year-old white male who lives at home, admitted on 09/08/2017 for failure to thrive, weakness, decreased urine output. The patient was found to have urinary retention and urinary stricture. A Mack catheter was placed. The patient was found to have acute renal failure and hypernatremia. The patient started developing fever up to 101.9 on 09/13/2017, was started on some antibiotics, Rocephin, has mild leukocytosis _ that is coming down. PAST MEDICAL HISTORY: Advanced dementia, history of influenza, iron-deficiency anemia, hypertension, BPH, hyperthyroidism, history of alcohol abuse in the past. MEDICATIONS: , Bactrim, ceftriaxone, atorvastatin, amlodipine, folic acid, lactobacillus, methimazole, metoprolol, nystatin, thiamine, multivitamin, Colace, milk of magnesium, Tylenol. ALLERGIES: To morphine. SOCIAL HISTORY: Single, lives at home, has a caregiver. No other history can be obtainable from the patient. PHYSICAL EXAMINATION: GENERAL APPEARANCE: Seems to be thin and cachectic; alert, noncommunicative. VITAL SIGNS: Temperature 98.2, pulse 112, blood pressure 117/67. HEAD AND NECK: NG tube feeding. HEART: Tachycardiac. LUNGS: Clear. ABDOMEN: Soft and nontender. EXTREMITIES: No edema. SKIN: Some deep tissue injury in heels and ulcer in right side of the buttock that is not so deep. LABORATORY AND DIAGNOSTIC DATA: WBC 11.3, hemoglobin 13.5, hematocrit 39.4, platelets 188. Sodium 143, potassium 4.8, chloride 111, bicarb 21, BUN 47, creatinine 1.6, coming down from 3.8 at the time of admission, glucose is 136. CT scan of the abdomen and pelvis showed diverticulosis, COPD. . Culture was negative except MRSA and pseudomonas in the left buttock culture. IMPRESSION: 1. Cellulitis of buttock area. 2. The patient developed fever and leukocytosis at the course of hospitalization, has hypernatremia, which has been corrected. 3. Acute renal failure. 4. Hypertension. 5. Diverticulosis. 6. Chronic obstructive pulmonary disease. 7. Urinary retention and urinary stricture. 8. MRSA colonization. RECOMMENDATION: 1. Discontinue ceftriaxone. 2. We will give penicillin, Levaquin, and vancomycin. 3. We will follow clinical course. At the end of my exam, I thank Dr. Walker for involving me in the care of this patient. Al Payne M.D. DR: Edilma JOB#: [id number] CC: STALIN
--- NOTE | 2017-09-18 06:25 | Anethesia Preoperative Eval ---
Anesthesia Pre-op PMH/ROS General Date of Evaluation: Sep 18, 2017 Time of Evaluation: 06:22 Anesthesiologist: jenn ASA Score: ASA 4 Mallampati Score Class I : Soft palate, uvula, fauces, pillars visible Class II: Soft palate, uvula, fauces visible Class III: Soft palate, base of uvula visible Class IV: Only hard plate visible Mallampati Classification: Class II Surgeon: earl Diagnosis: ftt, protein/calorie malnutrition Surgical Procedure: egd/peg Anesthesia History: none Social History: smoking - former smoker Family History: no anesthesia problems Allergies: Coded Allergies: MORPHINE (Verified Allergy, Unknown, 09/08/17) Medications: see eMAR Past Medical History Gastrointestinal/Genitourinary: Reports: other - arf, urinary obstruction Neurologic/Psychiatric: Reports: other - parkinson's disease Endocrine: Reports: hypothyroidism Anesthesia Pre-op Phys. Exam Physician Exam Last Vital Signs Date Time Temp Pulse Resp B/P (MAP) Pulse Ox O2 Delivery O2 Flow Rate FiO2 09/18/17 04:00 97.5 121 18 129/66 99 09/18/17 00:00 Room Air Constitutional: NAD Cardiovascular: other - tachycardia Respiratory: other - bilateral scattered rhonchi at bases Gastrointestinal: S/NT/ND Airway Exam Mallampati Score: Class II MO: limited Neck: short TMD: 2fb ROM: limited Teeth: missing Anesthesia Pre-op A/P Labs Labs Test 09/17/17 04:32 09/17/17 04:45 Urine Color Yellow Urine Appearance Clear Urine pH 5 (4.5-8.0) Urine Specific [place] 1.020 (1.005-1.035) Urine Protein 2+ (NEGATIVE) Urine Glucose (UA) Negative (NEGATIVE) Urine Ketones Negative (NEGATIVE) Urine Occult Blood 4+ (NEGATIVE) Urine Nitrite Negative (NEGATIVE) Urine Bilirubin Negative (NEGATIVE) Urine Urobilinogen Normal MG/DL (0.0-1.0) Urine Leukocyte Esterase Negative (NEGATIVE) Urine RBC 10-15 /HPF (0 - 0) Urine WBC 0-2 /HPF (0 - 0) Urine Squamous Epithelial Cells Occasional /LPF Urine Bacteria Occasional /HPF (NONE) Urine Hyaline Casts 0-2 /LPF (NONE) White Blood Count 11.3 K/UL (4.8-10.8) Red Blood Count 3.92 M/UL (4.70-6.10) Hemoglobin 13.4 G/DL (14.2-18.0) Hematocrit 39.4 % (42.0-52.0) Mean Corpuscular Volume 100 FL (80-99) Mean Corpuscular Hemoglobin 34.2 PG (27.0-31.0) Mean Corpuscular Hemoglobin Concent 34.0 G/DL (32.0-36.0) Red Cell Distribution Width 12.8 % (11.6-14.8) Platelet Count 188 K/UL (150-450) Mean Platelet Volume 9.7 FL (6.5-10.1) Neutrophils (%) (Auto) 81.1 % (45.0-75.0) Lymphocytes (%) (Auto) 9.3 % (20.0-45.0) Monocytes (%) (Auto) 6.6 % (1.0-10.0) Eosinophils (%) (Auto) 2.1 % (0.0-3.0) Basophils (%) (Auto) 0.8 % (0.0-2.0) Sodium Level 143 MMOL/L (136-145) Potassium Level 4.8 MMOL/L (3.5-5.1) Chloride Level 111 MMOL/L (98-107) Carbon Dioxide Level 25 MMOL/L (21-32) Anion Gap 7 mmol/L (5-15) Blood Urea Nitrogen 47 mg/dL (7-18) Creatinine 1.6 MG/DL (0.55-1.30) Estimat Glomerular Filtration Rate mL/min (>60) Glucose Level 136 MG/DL (74-106) Calcium Level 9.3 MG/DL (8.5-10.1) Total Bilirubin 0.2 MG/DL (0.2-1.0) Aspartate Amino Transf (AST/SGOT) 70 U/L (15-37) Alanine Aminotransferase (ALT/SGPT) 98 U/L (12-78) Alkaline Phosphatase 110 U/L (46-116) Total Protein 7.2 G/DL (6.4-8.2) Albumin 2.2 G/DL (3.4-5.0) Globulin 5.0 g/dL Albumin/Globulin Ratio 0.4 (1.0-2.7) Risk Assessment & Plan Assessment: asa4 Plan: mac Status Change Before Surgery: No Pre-Antibiotics Drug: ancef Given Within 1 Hr of Incision: Yes Time Given: 08:06 CAMMY LOPEZ Sep 18, 2017 06:25
[2017-09-18] MEDS ORDERED: ceFAZolin 1gm/50ml Premix 50 ML IV ONE (06:30)
[2017-09-18] MEDS ORDERED: NS 500ML IV ONE (08:00)
[2017-09-18] MEDS ORDERED: Propofol 200mg/20ml IV ONE (08:00)
[2017-09-18] MEDS ORDERED: Lidocaine 1% MPF 10mg/ml 5ml ONE (08:00)
--- NOTE | 2017-09-18 08:20 | Pre-Procedure Note/Attestation ---
Pre-Procedure Note/Attestation Complete Prior to Procedure Planned Procedure: not applicable Procedure Narrative: EGD/PEG Indications for Procedure Pre-Operative Diagnosis: Dysphagia Attestation I attest that I discussed the nature of the procedure; its benefits; risks and complications; and alternatives (and the risks and benefits of such alternatives ), prior to the procedure, with the patient (or the patient's legal industrial relations representative). I attest that, if there was a reasonable possibility of needing a blood transfusion, the patient (or the patient's legal industrial relations representative) was given the [facility] standardized written summary, pursuant to the [place] Blood Safety Act ([place] Health and Safety Code # 1645, as amended). I attest that I re-evaluated the patient just prior to the surgery and that there has been no change in the patient's H&P, except as documented below: CESIA AMEZCUA Sep 18, 2017 08:20
[2017-09-18] MEDS ORDERED: DiphenhydrAMINE 50mg/ml Inj IVP PRN (08:45)
[2017-09-18] MEDS ORDERED: Midazolam 2mg/2ml Inj IVP PRN (08:45)
[2017-09-18] MEDS ORDERED: Atropine Inj 1mg/10ml Syr IV PRN (08:45)
[2017-09-18] MEDS ORDERED: fentaNYL 100 mcg/2 mL IV PRN (08:45)
--- NOTE | 2017-09-18 08:57 | Endoscopy Procedure Note ---
Endoscopy Procedure Note Indication for Procedure: dysphagia Procedures Performed: EGD Operative Findings/Diagnosis: duodenitis, gastritis, PEG placed Specimen: yes Pt Tolerated Procedure Well: Yes Estimated Blood Loss: none Anesthesiologist: Naresh Chahal Anesthesia: MAC Medication Given: see anesthesia record PEG: placed Implant(s) used?: No 50 yrs or older w/o bx or poly: Not Applicable 10yrs. F/U not recommended: Not Applicable If not recommended, why?: CESIA AMEZCUA Sep 18, 2017 08:57
--- NOTE | 2017-09-18 08:58 | Brief Operative Note ---
Immediate Post Operative Note Operative Note Chief Complaint: dysphagia Pre-op Diagnosis: Dysphagia Procedure: PEG Post-op Diagnosis: dysphagia, duodenitis Surgeon: mariana Anesthesiologist: danyel mason Anesthesia: MAC Specimen: yes Complications: none Condition: stable Fluids: recorded Estimated Blood Loss: none Drains: none Implant(s) used?: No CESIA AMEZCUA Sep 18, 2017 08:58
--- NOTE | 2017-09-18 09:02 | General Progress Note ---
Assessment/Plan Assessment/Plan Assessment - OBS / AMS - Poor PO - Dehydration - Azotemia - Mild thrombocytopenia - resolved Recommendations - IVF - NPO - plavix and ASA on hold - will restart after PEG - Monitor platelet count - PEG placement today - DVT prophylaxis POST PROCEDURE - EGD: erosive duodenitis antrum biopsied for HP PEG placed Rec Rx HP if (+) on biopsy Subjective Allergies: Coded Allergies: MORPHINE (Verified Allergy, Unknown, 09/08/17) Subjective above noted off tube feeds for PEG this am minimally interactive Objective Last 24 Hour Vital Signs Date Time Temp Pulse Resp B/P (MAP) Pulse Ox O2 Delivery O2 Flow Rate FiO2 09/18/17 08:00 98.6 122 18 129/70 98 09/18/17 04:00 97.5 121 18 129/66 99 09/18/17 03:46 126 09/18/17 00:23 107 09/18/17 00:00 96.7 105 18 126/61 95 Room Air 09/17/17 22:05 111 134/67 09/17/17 20:00 98.8 111 22 134/67 96 Room Air 09/17/17 20:00 113 09/17/17 16:00 108 09/17/17 16:00 98.2 103 22 143/69 95 Room Air 09/17/17 12:00 98.4 100 20 142/71 94 Room Air 09/17/17 12:00 102 09/17/17 09:03 112 117/76 09/17/17 09:02 112 117/76 Intake and Output 09/17/17 09/18/17 19:00 07:00 Intake Total 1275.000 ml 400 ml Output Total 1350 ml 800 ml Balance -75.000 ml -400 ml Free Water 250 ml 100 ml IV Total 305.000 ml Tube Feeding 720 ml 300 ml Output Urine Total 1350 ml 800 ml # Bowel Movements 1 Height (Feet): 5 Height (Inches): 6.00 Weight (Pounds): 110 Objective Debilitated elderly man NCAT (+) NGT supple CTA RRR soft ND NT no edema CESIA AMEZCUA Sep 18, 2017 09:02
[2017-09-18] MEDS: Thiamine 100mg tab NG SCH (09:44)
[2017-09-18] MEDS: Nystatin Susp 500,000 units/5ml ORAL SCH ×3 (09:45→18:12)
[2017-09-18] MEDS: Lactobacillus-GG tablet NG SCH ×2 (09:45→18:12)
[2017-09-18] MEDS: Metoprolol 25mg tab NG SCH ×2 (09:45→20:40)
[2017-09-18] MEDS: Docusate 100mg/10ml Liq NG SCH ×2 (09:45→20:35)
[2017-09-18] MEDS: Multivitamins W/Minerals 15 ML UDC NG SCH (09:46)
--- NOTE | 2017-09-18 10:07 | Infectious Diseases Prog Note ---
Assessment/Plan Assessment/Plan A; Sepsis Wound infection Dysphagia s/p GT placement Acute renal failure, CKD P; Continue Levaquin & Vancomycin Subjective ROS Limited/Unobtainable: Yes Gastrointestinal/Abdominal: Reports: other - had GT placement today Allergies: Coded Allergies: MORPHINE (Verified Allergy, Unknown, 09/08/17) Objective Vital Signs Last 24 Hour Vital Signs Date Time Temp Pulse Resp B/P (MAP) Pulse Ox O2 Delivery O2 Flow Rate FiO2 09/18/17 09:45 101 110/62 09/18/17 09:45 101 110/62 09/18/17 09:20 97.3 101 24 110/62 95 Nasal Cannula 3.0 09/18/17 09:10 101 22 107/66 93 Nasal Cannula 3.0 09/18/17 09:05 102 28 109/66 95 Nasal Cannula 3.0 09/18/17 09:02 97.5 104 23 102/62 95 Nasal Cannula 3.0 09/18/17 08:00 98.6 122 18 129/70 98 09/18/17 04:00 97.5 121 18 129/66 99 09/18/17 03:46 126 09/18/17 00:23 107 09/18/17 00:00 96.7 105 18 126/61 95 Room Air 09/17/17 22:05 111 134/67 09/17/17 20:00 98.8 111 22 134/67 96 Room Air 09/17/17 20:00 113 09/17/17 16:00 108 09/17/17 16:00 98.2 103 22 143/69 95 Room Air 09/17/17 12:00 98.4 100 20 142/71 94 Room Air 09/17/17 12:00 102 Height (Feet): 5 Height (Inches): 6.00 Weight (Pounds): 110 General Appearance: no acute distress HEENT: mucous membranes moist Respiratory/Chest: lungs clear Cardiovascular: tachycardia Abdomen: soft, non tender, other - GT in place Neurologic/Psychiatric: alert, responsive, disoriented Current Medications Medications (Trade) Dose Ordered Sig/Elvia Route PRN Reason Start Time Stop Time Status Last Admin Dose Admin Acetaminophen (Tylenol) 650 mg Q4H PRN ORAL Mild Pain (Pain Scale 1-3) 09/08/17 23:15 10/08/17 23:14 09/14/17 01:19 Acetaminophen (Tylenol) 650 mg Q4H PRN ORAL fever 09/08/17 23:15 10/08/17 23:14 Al Hydroxide/Mg Hydroxide (Mylanta) 15 ml Q1H PRN ORAL gi upset 09/18/17 08:45 09/18/17 16:00 Amlodipine Besylate (Norvasc) 2.5 mg DAILY NG 09/12/17 10:30 10/12/17 10:29 09/18/17 09:45 Aspirin (ASA) 81 mg DAILY GT 09/18/17 11:00 10/18/17 10:59 UNV Atorvastatin Calcium (Lipitor) 40 mg BEDTIME NG 09/12/17 21:00 10/12/17 20:59 09/17/17 22:03 Atropine Sulfate (Atropine) 0.5 mg Q5M PRN IV bpm less than 45 09/18/17 08:45 09/18/17 15:00 Clopidogrel Bisulfate (Plavix) 75 mg ONCE ONCE ORAL 09/19/17 09:00 09/19/17 09:01 UNV Dextrose (Dextrose 50%) STAT PRN IV Hypoglycemia 09/08/17 23:15 10/08/17 23:14 Diphenhydramine HCl (Benadryl) 25 mg Q15M PRN IVP Itching 09/18/17 08:45 09/18/17 16:00 Docusate Sodium (Colace) 100 mg EVERY 12 HOURS NG 09/12/17 10:30 10/09/17 08:59 09/18/17 09:45 Fentanyl Citrate (Sublimaze 100 mcg/2 mL) 25 mcg Q10M PRN IV Moderate Pain (Pain Scale 4-6) 09/18/17 08:45 09/18/17 15:00 Folic Acid (Folate) 1 mg DAILY NG 09/12/17 10:30 10/12/17 10:29 09/18/17 09:45 Hydralazine HCl (Apresoline) 5 mg Q30M PRN IV SBP>160 OR___/DBP>90 OR___ 09/18/17 08:45 09/18/17 15:00 Lactobacillus Acidophilus (Culturelle) 1 tab TWICE A DAY NG 09/12/17 10:30 10/12/17 10:29 09/18/17 09:45 Lansoprazole (Prevacid) 30 mg ACBREAKFAST NG 09/13/17 06:30 10/13/17 06:29 09/17/17 06:37 Levofloxacin (Levaquin) 250 mg DAILY NG 09/17/17 13:00 09/24/17 12:59 09/18/17 09:45 Magnesium Hydroxide (Mom) 30 ml HSPRN PRN NG Constipation 09/12/17 09:30 10/12/17 09:29 Methimazole (Tapazole) 10 mg DAILY NG 09/12/17 10:30 10/12/17 10:29 09/18/17 09:44 Metoprolol Tartrate (Lopressor) 25 mg EVERY 12 HOURS NG 09/12/17 10:30 10/12/17 10:29 09/18/17 09:45 Midazolam HCl (Versed 2mg/2ml vial) 1 mg Q15M PRN IVP For Anxiety 09/18/17 08:45 09/18/17 15:00 Multivitamins (Multivitamins W/ Minerals 15ml Liquid) 15 ml DAILY NG 09/12/17 10:30 10/12/17 10:29 09/18/17 09:46 Mupirocin (Bactroban Oint) 1 applic DAILY TOPIC 09/16/17 14:00 09/21/17 13:59 09/18/17 09:49 Nystatin (Nystatin) 5 ml THREE TIMES A DAY ORAL 09/12/17 10:30 09/19/17 10:29 09/18/17 09:45 Ondansetron HCl (Zofran) 4 mg Q1H PRN IVP Nausea & Vomiting 09/18/17 08:45 09/18/17 15:00 Sodium Chloride 1,000 ml @ 10 mls/hr Q24H IVLG 09/18/17 08:45 09/18/17 10:44 Sodium Chloride 1,000 ml @ 75 mls/hr [id number] IV 09/18/17 12:00 10/18/17 11:59 Tamsulosin HCl (Flomax) 0.4 mg BEDTIME ORAL 09/16/17 21:00 10/16/17 20:59 09/17/17 22:05 Thiamine HCl (Vitamin B1) 100 mg DAILY NG 09/12/17 10:30 10/12/17 10:29 09/18/17 09:44 Vancomycin HCl (Vanco rx to dose) 1 ea DAILY PRN MISC Per rx protocol 09/17/17 11:45 10/17/17 11:44 Vancomycin/Sodium Chloride 250 ml @ 166.667 mls/hr Q24H IVPB 09/18/17 13:00 09/23/17 12:59 ROSE MARY KENDALL Sep 18, 2017 10:07
[2017-09-18] MEDS: Aspirin Baby 81mg GT SCH (11:25)
--- NOTE | 2017-09-18 12:26 | Neurology Progress Note ---
Interim History Interim History Interim History Mr. Cordova feels better.. He had his G-tube placed. He is more comfortable without his NGT. He is brighter. He continues to be cognitively impoverished. He continues to be motorically challenged. The left ankle is still painful and so is the right. He denies any new neurologic symptoms. There has been no significant improvement in his neurologic condition. Review of Systems Neuro Review of Systems Unable to obtain. Objective Physical Exam Last Vital Signs Date Time Temp Pulse Resp B/P (MAP) Pulse Ox O2 Delivery O2 Flow Rate FiO2 09/18/17 11:59 98.1 100 18 116/65 97 Nasal Cannula 3.0 Neurologic Exam Objective PHYSICAL EXAMINATION: GENERAL: He is a well-developed but lean and ill-looking gentleman lying in bed, in no acute distress. HEAD: Normocephalic and atraumatic. NECK: No neck rigidity was observed. EENT: Examination benign. NEUROLOGICAL EXAMINATION: MENTAL STATUS EXAMINATION: He was awake and alert. He was oriented to self only. He had no idea of where he was or what the date was. He was unable to cooperate for further mental status tests. SPEECH: He had a mild dysarthria. LANGUAGE: He had problems with comprehension, repetition, naming, and expression of language. CRANIAL NERVE EXAMINATION: II: The visual miller were difficult to test because of his inability to cooperate. He did, however, blink to threat. He was unable to count fingers. He also had problems recognizing objects held in front of him. III, IV & : The external ocular movements were full, and the pupils 3 mm in diameter, equal, round, regular, and reactive to light. V: He had normal facial sensations and the temporales, masseters, and pterygoids functioned normally. VII: He had a trace right 7th central facial paresis. VIII: He was able to hear, and had no nystagmus. IX: The palate moved symmetrically on phonation. X: He had no hoarseness of voice. XI: The sternocleidomastoids and trapezii functioned normally. XII: The tongue was in the midline without any fasciculations or atrophy. MOTOR SYSTEM: The tone was increased in all 4 extremities with a combination of spasticity and Gegenhalten. Examination of muscle mass revealed no focal wasting. Examination of power was exceedingly difficult to perform because of varying degrees of cooperation. He did, however, move all 4 extremities on command with distal upper extremity and proximal an distal lower extremity weakness. SENSORY EXAMINATION: He did respond to deep pain. He was unable to cooperate for other sensory modalities. REFLEXES: 1+ and bilaterally symmetrical at the biceps, triceps, brachioradialis , and knees; 0 at both ankles. The plantar responses were flexor bilaterally. COORDINATION:He was significantly apractic in both his upper and lower extremities, and was unable to perform [id number] and [id number] testing. STANCE & GAIT: Were deferred. Impression/Recommendations Diagnostic Impression 1. Mr. Aashish Cordova is an 81-year-old, right-handed, gentleman, who does have a past history of hypertension, dyslipidemia, coronary artery disease - status post percutaneous intervention, chronic kidney disease, benign prostatic hypertrophy, anemia, alcoholism, influenza type A, and a possible pneumonia, and a cognitive decline for the last year. He was hospitalized for failure to thrive. 2. He feels better. He is alert today. He continues to be cognitively impoverished and motorically challenged. 3. On neurological examination, at this time, he does have problems with orientation, recent and remote memory, visuospatial function, higher cognitive function, and language. 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 4. His laboratory data on admission revealed that his creatinine was elevated to 2.8, his BUN was elevated to 113, his Na was elevated to 162, his Cl was elevated to 122, his HB was elevated to 18 G. 5. The patient's history, neurological examination, laboratory data are most compatible with failure to thrive due to severe dehydration due to not eating or drinking. He also has an underlying advanced dementia. Recommendations 1. Continue present management. 2. Continue correction of toxic/metabolic imbalances. 3. Mobilize with PT/OT. SUSY BRICE M.D., M.S.P.H. SUSY BRICE Sep 18, 2017 12:25
[2017-09-18] MEDS: Vancomycin 750mg/NS 250ml IVPB SCH (13:36)
--- NOTE | 2017-09-18 13:41 | Nephrology Progress Note ---
Assessment/Plan Problem List: (1) Hypernatremia Assessment: corrected (2) Acute renal failure Assessment: stable (3) Episode of generalized weakness (4) Protein-calorie malnutrition, moderate Assessment no labs today Plan cont with TF follow BMP Subjective Subjective In NAD Objective Objective Last 24 Hour Vital Signs Date Time Temp Pulse Resp B/P (MAP) Pulse Ox O2 Delivery O2 Flow Rate FiO2 09/18/17 11:59 98.1 100 18 116/65 97 Nasal Cannula 3.0 09/18/17 09:45 101 110/62 09/18/17 09:45 101 110/62 09/18/17 09:20 97.3 101 24 110/62 95 Nasal Cannula 3.0 09/18/17 09:10 101 22 107/66 93 Nasal Cannula 3.0 09/18/17 09:05 102 28 109/66 95 Nasal Cannula 3.0 09/18/17 09:02 97.5 104 23 102/62 95 Nasal Cannula 3.0 09/18/17 08:00 98.6 122 18 129/70 98 09/18/17 04:00 97.5 121 18 129/66 99 09/18/17 03:46 126 09/18/17 00:23 107 09/18/17 00:00 96.7 105 18 126/61 95 Room Air 09/17/17 22:05 111 134/67 09/17/17 20:00 98.8 111 22 134/67 96 Room Air 09/17/17 20:00 113 09/17/17 16:00 108 09/17/17 16:00 98.2 103 22 143/69 95 Room Air Intake and Output 09/17/17 09/18/17 19:00 07:00 Intake Total 1275.000 ml 400 ml Output Total 1350 ml 800 ml Balance -75.000 ml -400 ml Free Water 250 ml 100 ml IV Total 305.000 ml Tube Feeding 720 ml 300 ml Output Urine Total 1350 ml 800 ml # Bowel Movements 1 Height (Feet): 5 Height (Inches): 6.00 Weight (Pounds): 110 Cardiovascular: normal rate Respiratory/Chest: lungs clear Extremities: other - no edema MARYA KENDALL Sep 18, 2017 13:41
--- NOTE | 2017-09-18 13:57 | Cardiology Report ---
APPROVED REPORT EKG Measurement Heart [id number] Sinus tachycardia Nonspecific ST and T wave abnormality Abnormal ECG
--- NOTE | 2017-09-18 14:03 | Wound Care Consultation ---
Wound Assessment Wound Assessment #1: Wound Number: 1 Wound Present on Admission: Yes New Wound: No Status Change of Wound: No Wound Location Body Site Modif: left Wound Location Body Site: heel Wound Type: pressure ulcer Alonso Test: Does not Alonso Pressure Ulcer Stage: Deep Tissue Injury Wound Thickness: Full Thickness Wound Length: 8.0 Wound Width: 8.0 Wound Depth: utd Percent of Wound Purple/Maroon: 100 Wound Drainage Amount: None Wound Drainage Odor: None/Absent Tissue Surrounding Wound: boggy, erythemic Wound General Appearance: Reddened - deep maroon, boggy Wound Assessment #2: Wound Number: 2 Wound Present on Admission: Yes New Wound: No Status Change of Wound: No Wound Location Body Site Modif: mid Wound Location Body Site: other - Sacrococcygeal Wound Type: pressure ulcer Alonso Test: Does not Alonso Pressure Ulcer Stage: Unstageable Wound Thickness: Full Thickness Wound Length: 9.0 Wound Width: 11.0 Wound Depth: utd Percent of Wound Purple/Maroon: 100 Wound Drainage Description: Serosanguineous Wound Drainage Amount: Scant Wound Drainage Odor: None/Absent Tissue Surrounding Wound: Macerated Wound General Appearance: Reddened - maroon, Draining Wound Assessment #3: Wound Number: 3 Wound Present on Admission: No New Wound: Yes Status Change of Wound: No Wound Location Body Site Modif: right Wound Location Body Site: heel Wound Type: pressure ulcer Alonso Test: Does not Alonso Pressure Ulcer Stage: Deep Tissue Injury Wound Thickness: Full Thickness Wound Length: 4.0 Wound Width: 7.5 Wound Depth: utd Percent of Wound Purple/Maroon: 100 Wound Drainage Amount: None Wound Drainage Odor: None/Absent Tissue Surrounding Wound: Intact Wound General Appearance: Reddened - purple Wound Assessment #4: Wound Number: 4 Wound Present on Admission: No New Wound: Yes Status Change of Wound: No Wound Location Body Site Modif: right, lateral Wound Location Body Site: malleolus/ankle Wound Type: pressure ulcer Alonso Test: Does not Alonso Pressure Ulcer Stage: Deep Tissue Injury Wound Thickness: Full Thickness Wound Length: 1.5 Wound Width: 1.5 Wound Depth: utd Percent of Wound Purple/Maroon: 100 Wound Drainage Amount: None Wound Drainage Odor: None/Absent Tissue Surrounding Wound: Intact Wound General Appearance: Reddened - maroon/purple Wound Comment #1 sacrococcygeal scattered unstageable ulcers. Surrounding tissue noted with deep red color, at risk for further skin breakdown. Good progress noted. #2 left heel deep tissue injury. Skin still intact #3 Right heel DTI pressure ulcer #4 Right lateral malleolus DTI pressure ulcer Reassessed this Pt today. Noted Pt with new DTI pressure ulcers. Will follow up on this Pt. DR Nj is on the case. Recommendation -Local wound care per protocol. -TURN AND REPOSITION -Offload both heels -Keep clean and dry. -Optimize nutrition. -Apply low air loss mattress -Heel protectors on both heels -Assess and notify MD for any further change of condition to skin noted. EROS RIZO RN Sep 18, 2017 14:03
--- NOTE | 2017-09-18 17:54 | Immediate Post-Op Evaluation ---
Immediate Post-Op Evalulation Immediate Post-Op Evalulation Procedure: egd/peg Date of Evaluation: Sep 18, 2017 Time of Evaluation: 09:14 IV Fluids: 200ml 0.9ns Blood Products: none Estimated Blood Loss: negligible Blood Pressure Systolic: 107 Blood Pressure Diastolic: 66 Pulse Rate: 102 Respiratory Rate: 28 O2 Sat by Pulse Oximetry: 93 Temperature (Fahrenheit): 97.5 Pain Score (1-10): 0 Nausea: No Vomiting: No Complications none Patient Status: awake, reacts, patent Hydration Status: adequate Drug: ancef 1gm Given Within 1 Hr of Incision: Yes - 08:06 Time Given: 08:06 CAMMY LOPEZ Sep 18, 2017 17:54
--- NOTE | 2017-09-18 17:55 | 48 Hour Post Anesthesia Eval ---
Post Anesthesia Evaluation Procedure: egd/peg Date of Evaluation: Sep 18, 2017 Time of Evaluation: 09:16 Blood Pressure Systolic: 102 0: 67 Pulse Rate: 102 Respiratory Rate: 22 Temperature (Fahrenheit): 97.5 O2 Sat by Pulse Oximetry: 96 Airway: patent Nausea: No Vomiting: No Pain Intensity: 0 Hydration Status: adequate Cardiopulmonary Status: stable Mental Status/LOC: patient returned to baseline Post-Anesthesia Complications: none Follow-up care needed: N/A CAMMY LOPEZ Sep 18, 2017 17:55
--- NOTE | 2017-09-18 19:19 | General Progress Note ---
Assessment/Plan Problem List: (1) Hyperthyroidism ICD Codes: E05.90 - Thyrotoxicosis, unspecified without thyrotoxic crisis or storm SNOMED: 54776059 (2) Episode of generalized weakness ICD Codes: R53.1 - Weakness SNOMED: 16605136 (3) Hypernatremia ICD Codes: E87.0 - Hyperosmolality and hypernatremia SNOMED: 80094293 (4) Dehydration ICD Codes: E86.0 - Dehydration SNOMED: 46098390 (5) Urinary obstruction ICD Codes: N13.9 - Obstructive and reflux uropathy, unspecified SNOMED: 8139047 (6) Acute renal failure ICD Codes: N17.9 - Acute kidney failure, unspecified SNOMED: 86951295 Assessment/Plan - continueTapazole 10 mg daily - TSI is normal - repeat thyroid function in one month - I sign off Subjective ROS Limited/Unobtainable: Yes Allergies: Coded Allergies: MORPHINE (Verified Allergy, Unknown, 09/08/17) Subjective events noted - interval notes reviewed Objective Last 24 Hour Vital Signs Date Time Temp Pulse Resp B/P (MAP) Pulse Ox O2 Delivery O2 Flow Rate FiO2 09/18/17 17:55 102 22 96 09/18/17 17:54 102 28 93 09/18/17 16:00 105 09/18/17 15:52 98.0 103 19 118/59 96 Nasal Cannula 3.0 09/18/17 12:00 100 09/18/17 11:59 98.1 100 18 116/65 97 Nasal Cannula 3.0 09/18/17 09:45 101 110/62 09/18/17 09:45 101 110/62 09/18/17 09:20 97.3 101 24 110/62 95 Nasal Cannula 3.0 09/18/17 09:10 101 22 107/66 93 Nasal Cannula 3.0 09/18/17 09:05 102 28 109/66 95 Nasal Cannula 3.0 09/18/17 09:02 97.5 104 23 102/62 95 Nasal Cannula 3.0 09/18/17 08:00 98.6 122 18 129/70 98 09/18/17 08:00 119 09/18/17 04:00 97.5 121 18 129/66 99 09/18/17 03:46 126 09/18/17 00:23 107 09/18/17 00:00 96.7 105 18 126/61 95 Room Air 09/17/17 22:05 111 134/67 09/17/17 20:00 98.8 111 22 134/67 96 Room Air 09/17/17 20:00 113 Intake and Output 09/17/17 09/18/17 19:00 07:00 Intake Total 1275.000 ml 400 ml Output Total 1350 ml 800 ml Balance -75.000 ml -400 ml Free Water 250 ml 100 ml IV Total 305.000 ml Tube Feeding 720 ml 300 ml Output Urine Total 1350 ml 800 ml # Bowel Movements 1 Height (Feet): 5 Height (Inches): 6.00 Weight (Pounds): 110 General Appearance: no apparent distress Neck: normal alignment Cardiovascular: normal rate Respiratory/Chest: lungs clear Abdomen: normal bowel sounds Edema: no edema noted Arm (L), no edema noted Arm (R), no edema noted Leg (L), no edema noted Leg (R), no edema noted Pedal (L), no edema noted Pedal (R), no edema noted Generalized Objective Current Medications Medications (Trade) Dose Ordered Sig/Elvia Route PRN Reason Start Time Stop Time Status Last Admin Dose Admin Acetaminophen (Tylenol) 650 mg Q4H PRN ORAL Mild Pain (Pain Scale 1-3) 09/08/17 23:15 10/08/17 23:14 09/14/17 01:19 Acetaminophen (Tylenol) 650 mg Q4H PRN ORAL fever 09/08/17 23:15 10/08/17 23:14 Amlodipine Besylate (Norvasc) 2.5 mg DAILY NG 09/12/17 10:30 10/12/17 10:29 09/14/17 09:30 Atorvastatin Calcium (Lipitor) 40 mg BEDTIME NG 09/12/17 21:00 10/12/17 20:59 09/14/17 21:00 Ceftriaxone Sodium 2 gm/ Dextrose 55 ml @ 110 mls/hr EVERY 12 HOURS IVPB 09/15/17 09:00 09/22/17 08:59 Dextrose (Dextrose 50%) STAT PRN IV Hypoglycemia 09/08/17 23:15 10/08/17 23:14 Docusate Sodium (Colace) 100 mg EVERY 12 HOURS NG 09/12/17 10:30 10/09/17 08:59 09/14/17 09:27 Folic Acid (Folate) 1 mg DAILY NG 09/12/17 10:30 10/12/17 10:29 09/14/17 09:30 Lactobacillus Acidophilus (Culturelle) 1 tab TWICE A DAY NG 09/12/17 10:30 10/12/17 10:29 09/14/17 17:27 Lansoprazole (Prevacid) 30 mg ACBREAKFAST NG 09/13/17 06:30 10/13/17 06:29 09/14/17 05:50 Magnesium Hydroxide (Mom) 30 ml HSPRN PRN NG Constipation 09/12/17 09:30 10/12/17 09:29 Methimazole (Tapazole) 10 mg DAILY NG 09/12/17 10:30 10/12/17 10:29 09/14/17 09:27 Metoprolol Tartrate (Lopressor) 25 mg EVERY 12 HOURS NG 09/12/17 10:30 10/12/17 10:29 09/14/17 21:00 Multivitamins (Multivitamins W/ Minerals 15ml Liquid) 15 ml DAILY NG 09/12/17 10:30 10/12/17 10:29 09/14/17 09:27 Nystatin (Nystatin) 5 ml THREE TIMES A DAY ORAL 09/12/17 10:30 09/19/17 10:29 09/14/17 17:27 Thiamine HCl (Vitamin B1) 100 mg DAILY NG 09/12/17 10:30 10/12/17 10:29 09/14/17 09:34 CASSIDY SANDOVAL Sep 18, 2017 19:19
--- NOTE | 2017-09-18 20:30 | Procedure Note ---
DATE OF PROCEDURE: 09/18/2017 GASTROENTEROLOGY PROCEDURE REPORT PROCEDURE: Upper gastrointestinal endoscopy with biopsy and gastrostomy tube placement. SURGEON: Harrison St M.D. ANESTHESIA: Please see the separate anesthesiologist notes for details. PRE-ENDOSCOPIC DIAGNOSIS: Dysphagia. POST-ENDOSCOPIC DIAGNOSES: 1. Duodenitis. 2. Mild gastritis. 3. Status post biopsy of the antrum. 4. Status post gastrostomy tube placement. DESCRIPTION OF PROCEDURE: The procedure, its risks, indications, alternatives, and possible complications were explained and informed consent was obtained. The patient was then sedated in the supine position. A diagnostic upper endoscope was introduced through the oropharynx and advanced to the duodenum. Examination showed moderate duodenal erosive inflammation as well as mild gastritis. Biopsies of the antrum were sent to pathology for review. No discrete ulceration was identified. The patient's outside skin was sterilely prepared, anesthetized, incised and the trocar needle was used to place the gastrostomy tube using the standard pull technique. The position was verified endoscopically. The endoscope was removed. The patient was sent to recovery in good condition. RECOMMENDATIONS: 1. Observe overnight. 2. Begin tube feedings tomorrow. 3. Check and treat Helicobacter pylori if positive. Harrison St M.D. DR: Rafa JOB#: [id number] CC:
[2017-09-18] MEDS: Tamsulosin 0.4mg cap ORAL SCH (20:35)
[2017-09-18] MEDS: Atorvastatin 20mg tab NG SCH (20:35)
--- NOTE | 2017-09-18 22:32 | General Progress Note ---
Assessment/Plan Assessment/Plan dehydration renal failure hypernatremia urinary obstruction dementia ho alcoholism hyperthyrodism buttock wound fluids nephrolgy fup has valery urolgy fup monitor labs dw Dr Moura started on tapazole gi eval appreciated dw Dr Dorado gtube placement done strt feeding when ok with GI restart asa plavix when ok with gi ct noted wound care per Dr holloway ID eval appreciated dvt and ulcer prophylaxis pt/ot clarence Feng states symptoms from worsining dementia and encephalopathy urology fup re rasmussenmelchor Au will leave in for now Subjective Allergies: Coded Allergies: MORPHINE (Verified Allergy, Unknown, 09/08/17) Subjective awake nonverbal got gtube placed Objective Last 24 Hour Vital Signs Date Time Temp Pulse Resp B/P (MAP) Pulse Ox O2 Delivery O2 Flow Rate FiO2 09/18/17 20:40 93 139/65 09/18/17 20:00 98.1 93 19 139/65 96 Nasal Cannula 3.0 09/18/17 20:00 101 09/18/17 17:55 102 22 96 09/18/17 17:54 102 28 93 09/18/17 16:00 105 09/18/17 15:52 98.0 103 19 118/59 96 Nasal Cannula 3.0 09/18/17 12:00 100 09/18/17 11:59 98.1 100 18 116/65 97 Nasal Cannula 3.0 09/18/17 09:45 101 110/62 09/18/17 09:45 101 110/62 09/18/17 09:20 97.3 101 24 110/62 95 Nasal Cannula 3.0 09/18/17 09:10 101 22 107/66 93 Nasal Cannula 3.0 09/18/17 09:05 102 28 109/66 95 Nasal Cannula 3.0 09/18/17 09:02 97.5 104 23 102/62 95 Nasal Cannula 3.0 09/18/17 08:00 98.6 122 18 129/70 98 09/18/17 08:00 119 09/18/17 04:00 97.5 121 18 129/66 99 09/18/17 03:46 126 09/18/17 00:23 107 09/18/17 00:00 96.7 105 18 126/61 95 Room Air Intake and Output 09/17/17 09/18/17 19:00 07:00 Intake Total 1275.000 ml 400 ml Output Total 1350 ml 800 ml Balance -75.000 ml -400 ml Free Water 250 ml 100 ml IV Total 305.000 ml Tube Feeding 720 ml 300 ml Output Urine Total 1350 ml 800 ml # Bowel Movements 1 Height (Feet): 5 Height (Inches): 6.00 Weight (Pounds): 110 Neck: supple Cardiovascular: normal rate Respiratory/Chest: lungs clear Abdomen: soft Objective ncat peerla temporal wasting mouth moist mucous membrane buttcok wound YANET MEDELLIN Sep 18, 2017 22:32
[2017-09-19] VITALS: BP 129/58
[2017-09-19 04:00] VITALS: BP 135/70
[2017-09-19 08:00] VITALS: BP 132/60
[2017-09-19] MEDS: Multivitamins W/Minerals 15 ML UDC NG SCH (08:14)
[2017-09-19] MEDS: Nystatin Susp 500,000 units/5ml ORAL SCH (08:15)
[2017-09-19] MEDS: Docusate 100mg/10ml Liq NG SCH ×3 (08:15→21:56)
[2017-09-19] MEDS: Thiamine 100mg tab NG SCH (08:16)
[2017-09-19] MEDS: Aspirin Baby 81mg GT SCH (08:16)
[2017-09-19] MEDS: Lactobacillus-GG tablet NG SCH ×2 (08:16→18:21)
[2017-09-19] MEDS: Metoprolol 25mg tab NG SCH ×2 (08:22→21:32)
[2017-09-19 08:56] LABS: BASOPHILS % (AUTO) 0.8 % (0.0-2.0); EOSINOPHILS % (AUTO) 2.8 % (0.0-3.0); HEMATOCRIT 34.5 % (42.0-52.0); HEMOGLOBIN 11.7 G/DL (14.2-18.0); LYMPHOCYTES % (AUTO) 13.7 % (20.0-45.0); MEAN CORPUSCULAR VOLUME 101 FL (80-99); MONOCYTES % (AUTO) 5.7 % (1.0-10.0); PLATELET COUNT 217 K/UL (150-450); RED BLOOD COUNT 3.41 M/UL (4.70-6.10); RED CELL DISTRIBUTION WIDTH 12.4 % (11.6-14.8); WHITE BLOOD COUNT 10.3 K/UL (4.8-10.8)
[2017-09-19 10:07] LABS: ANION GAP 9 mmol/L (5-15); BLOOD UREA NITROGEN 38 mg/dL (7-18); CARBON DIOXIDE 23 MMOL/L (21-32); CHLORIDE 109 MMOL/L (98-107); CREATININE 1.6 MG/DL (0.55-1.30); POTASSIUM 4.8 MMOL/L (3.5-5.1); SODIUM 141 MMOL/L (136-145)
--- NOTE | 2017-09-19 10:52 | Infectious Diseases Prog Note ---
"Assessment/Plan Assessment/Plan antibiotics ; vancomycin iv, levoquin A 1. MRSA | pseudomonas wound infection 2. leucocytosis improving 3. renal failure improving 4. dementia p 1. continue vancomycin iv, levoquin 7 more days 2. will follow up cultures Subjective ROS Limited/Unobtainable: Yes Allergies: Coded Allergies: MORPHINE (Verified Allergy, Unknown, 09/08/17) Objective Vital Signs Last 24 Hour Vital Signs Date Time Temp Pulse Resp B/P (MAP) Pulse Ox O2 Delivery O2 Flow Rate FiO2 09/19/17 08:22 94 132/60 09/19/17 08:16 94 132/60 09/19/17 08:00 97.5 94 20 132/60 94 Nasal Cannula 3.0 09/19/17 04:00 98.1 99 16 135/70 96 Nasal Cannula 3.0 09/19/17 04:00 94 09/19/17 00:00 99 09/19/17 00:00 98.2 98 18 129/58 98 Nasal Cannula 3.0 09/18/17 20:40 93 139/65 09/18/17 20:00 98.1 93 19 139/65 96 Nasal Cannula 3.0 09/18/17 20:00 101 09/18/17 17:55 102 22 96 09/18/17 17:54 102 28 93 09/18/17 16:00 105 09/18/17 15:52 98.0 103 19 118/59 96 Nasal Cannula 3.0 09/18/17 12:00 100 09/18/17 11:59 98.1 100 18 116/65 97 Nasal Cannula 3.0 Height (Feet): 5 Height (Inches): 6.00 Weight (Pounds): 110 Respiratory/Chest: lungs clear Cardiovascular: normal rate, regular rhythm, no gallop/murmur Abdomen: soft, non tender, other - GT Extremities: no edema Laboratory Tests Test 09/19/17 07:30 White Blood Count 10.3 K/UL (4.8-10.8) Red Blood Count 3.41 M/UL (4.70-6.10) L Hemoglobin 11.7 G/DL (14.2-18.0) L Hematocrit 34.5 % (42.0-52.0) L Mean Corpuscular Volume 101 FL (80-99) H Mean Corpuscular Hemoglobin 34.2 PG (27.0-31.0) H Mean Corpuscular Hemoglobin Concent 33.9 G/DL (32.0-36.0) Red Cell Distribution Width 12.4 % (11.6-14.8) Platelet Count 217 K/UL (150-450) Mean Platelet Volume 9.5 FL (6.5-10.1) Neutrophils (%) (Auto) 77.0 % (45.0-75.0) H Lymphocytes (%) (Auto) 13.7 % (20.0-45.0) L Monocytes (%) (Auto) 5.7 % (1.0-10.0) Eosinophils (%) (Auto) 2.8 % (0.0-3.0) Basophils (%) (Auto) 0.8 % (0.0-2.0) Sodium Level 141 MMOL/L (136-145) Potassium Level 4.8 MMOL/L (3.5-5.1) Chloride Level 109 MMOL/L (98-107) H Carbon Dioxide Level 23 MMOL/L (21-32) Anion Gap 9 mmol/L (5-15) Blood Urea Nitrogen 38 mg/dL (7-18) H Creatinine 1.6 MG/DL (0.55-1.30) H Estimat Glomerular Filtration Rate mL/min (>60) Glucose Level 95 MG/DL (74-106) Calcium Level 9.0 MG/DL (8.5-10.1) MATTY BLANCHARD Sep 19, 2017 10:52"
[2017-09-19 12:00] VITALS: BP 126/64
--- NOTE | 2017-09-19 12:34 | Nephrology Progress Note ---
Assessment/Plan Problem List: (1) Hypernatremia Assessment: corrected (2) Acute renal failure Assessment: stable (3) Episode of generalized weakness (4) Protein-calorie malnutrition, moderate Assessment renal function stable Plan cont with TF discussed with RN Subjective Subjective In NAD Objective Objective Last 24 Hour Vital Signs Date Time Temp Pulse Resp B/P (MAP) Pulse Ox O2 Delivery O2 Flow Rate FiO2 09/19/17 12:00 97.7 92 20 126/64 95 Nasal Cannula 3.0 09/19/17 08:22 94 132/60 09/19/17 08:16 94 132/60 09/19/17 08:00 97.5 94 20 132/60 94 Nasal Cannula 3.0 09/19/17 04:00 98.1 99 16 135/70 96 Nasal Cannula 3.0 09/19/17 04:00 94 09/19/17 00:00 99 09/19/17 00:00 98.2 98 18 129/58 98 Nasal Cannula 3.0 09/18/17 20:40 93 139/65 09/18/17 20:00 98.1 93 19 139/65 96 Nasal Cannula 3.0 09/18/17 20:00 101 09/18/17 17:55 102 22 96 09/18/17 17:54 102 28 93 09/18/17 16:00 105 09/18/17 15:52 98.0 103 19 118/59 96 Nasal Cannula 3.0 Intake and Output 09/18/17 09/19/17 19:00 07:00 Intake Total 600 ml 1393 ml Output Total 800 ml 300 ml Balance -200 ml 1093 ml Intake Oral 300 ml Free Water 200 ml IV Total 600 ml 893 ml Output Urine Total 800 ml 300 ml Estimated Blood Loss 0 ml # Voids 2 Laboratory Tests 09/19/17 07:30: White Blood Count 10.3, Red Blood Count 3.41L, Hemoglobin 11.7L, Hematocrit 34.5L, Mean Corpuscular Volume 101H, Mean Corpuscular Hemoglobin 34.2H, Mean Corpuscular Hemoglobin Concent 33.9, Red Cell Distribution Width 12.4, Platelet Count 217, Mean Platelet Volume 9.5, Neutrophils (%) (Auto) 77.0H, Lymphocytes ( %) (Auto) 13.7L, Monocytes (%) (Auto) 5.7, Eosinophils (%) (Auto) 2.8, Basophils (%) (Auto) 0.8, Sodium Level 141, Potassium Level 4.8, Chloride Level 109H, Carbon Dioxide Level 23, Anion Gap 9, Blood Urea Nitrogen 38H, Creatinine 1.6H, Estimat Glomerular Filtration Rate , Glucose Level 95, Calcium Level 9.0 Height (Feet): 5 Height (Inches): 6.00 Weight (Pounds): 110 Cardiovascular: normal rate Respiratory/Chest: lungs clear Extremities: other - no edema MARYA KENDALL Sep 19, 2017 12:34
[2017-09-19] MEDS: Vancomycin 750mg/NS 250ml IVPB SCH (13:26)
[2017-09-19 15:46] VITALS: BP 148/69
--- NOTE | 2017-09-19 17:17 | Neurology Progress Note ---
Interim History Interim History Interim History Mr. Cordova feels better.. His G-tube is functioning well. He is being fed through his GT and is tolerating the feeds well. His speech is clearer. He is definitely brighter. He continues to be cognitively impoverished. He continues to be motorically challenged. The left ankle is still painful and so is the right. He denies any new neurologic symptoms. Review of Systems Neuro Review of Systems Unable to obtain. Objective Physical Exam Last Vital Signs Date Time Temp Pulse Resp B/P (MAP) Pulse Ox O2 Delivery O2 Flow Rate FiO2 09/19/17 15:46 97.9 96 20 148/69 95 Room Air Laboratory Tests Test 09/19/17 07:30 White Blood Count 10.3 K/UL (4.8-10.8) Red Blood Count 3.41 M/UL (4.70-6.10) L Hemoglobin 11.7 G/DL (14.2-18.0) L Hematocrit 34.5 % (42.0-52.0) L Mean Corpuscular Volume 101 FL (80-99) H Mean Corpuscular Hemoglobin 34.2 PG (27.0-31.0) H Mean Corpuscular Hemoglobin Concent 33.9 G/DL (32.0-36.0) Red Cell Distribution Width 12.4 % (11.6-14.8) Platelet Count 217 K/UL (150-450) Mean Platelet Volume 9.5 FL (6.5-10.1) Neutrophils (%) (Auto) 77.0 % (45.0-75.0) H Lymphocytes (%) (Auto) 13.7 % (20.0-45.0) L Monocytes (%) (Auto) 5.7 % (1.0-10.0) Eosinophils (%) (Auto) 2.8 % (0.0-3.0) Basophils (%) (Auto) 0.8 % (0.0-2.0) Sodium Level 141 MMOL/L (136-145) Potassium Level 4.8 MMOL/L (3.5-5.1) Chloride Level 109 MMOL/L (98-107) H Carbon Dioxide Level 23 MMOL/L (21-32) Anion Gap 9 mmol/L (5-15) Blood Urea Nitrogen 38 mg/dL (7-18) H Creatinine 1.6 MG/DL (0.55-1.30) H Estimat Glomerular Filtration Rate mL/min (>60) Glucose Level 95 MG/DL (74-106) Calcium Level 9.0 MG/DL (8.5-10.1) Neurologic Exam Objective PHYSICAL EXAMINATION: GENERAL: He is a well-developed but lean and ill-looking gentleman lying in bed, in no acute distress. HEAD: Normocephalic and atraumatic. NECK: No neck rigidity was observed. EENT: Examination benign. NEUROLOGICAL EXAMINATION: MENTAL STATUS EXAMINATION: He was awake and alert. He was significantly brighter. He was oriented to self only. He had no idea of where he was or what the date was. He was unable to cooperate for further mental status tests. SPEECH: He had a mild dysarthria - however his dysarthria was better.. LANGUAGE: He had problems with comprehension, repetition, naming, and expression of language. CRANIAL NERVE EXAMINATION: II: The visual miller were difficult to test because of his inability to cooperate. He did, however, blink to threat. He was able to count fingers. He however had problems recognizing objects held in front of him. III, IV & : The external ocular movements were full, and the pupils 3 mm in diameter, equal, round, regular, and reactive to light. V: He had normal facial sensations and the temporales, masseters, and pterygoids functioned normally. VII: He had a trace right 7th central facial paresis. VIII: He was able to hear, and had no nystagmus. IX: The palate moved symmetrically on phonation. X: He had no hoarseness of voice. XI: The sternocleidomastoids and trapezii functioned normally. XII: The tongue was in the midline without any fasciculations or atrophy. MOTOR SYSTEM: The tone was increased in all 4 extremities with a combination of spasticity and Gegenhalten. Examination of muscle mass revealed no focal wasting. Examination of power was exceedingly difficult to perform because of varying degrees of cooperation. He did, however, move all 4 extremities on command with distal upper extremity and proximal an distal lower extremity weakness. SENSORY EXAMINATION: He did respond to deep pain. He was unable to cooperate for other sensory modalities. REFLEXES: 1+ and bilaterally symmetrical at the biceps, triceps, brachioradialis , and knees; 0 at both ankles. The plantar responses were flexor bilaterally. COORDINATION:He was significantly apractic in both his upper and lower extremities, and was unable to perform [id number] and [id number] testing. STANCE & GAIT: Were deferred. Impression/Recommendations Diagnostic Impression 1. Mr. Aashish Cordova is an 81-year-old, right-handed, gentleman, who does have a past history of hypertension, dyslipidemia, coronary artery disease - status post percutaneous intervention, chronic kidney disease, benign prostatic hypertrophy, anemia, alcoholism, influenza type A, and a possible pneumonia, and a cognitive decline for the last year. He was hospitalized for failure to thrive. 2. He feels better. He is alert and brighter today. He continues to be cognitively impoverished and motorically challenged. 3. On neurological examination, at this time, he does have problems with orientation, recent and remote memory, visuospatial function, higher cognitive function, and language. 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 4. His laboratory data on admission revealed that his creatinine was elevated to 2.8, his BUN was elevated to 113, his Na was elevated to 162, his Cl was elevated to 122, his HB was elevated to 18 G. 5. The patient's history, neurological examination, laboratory data are most compatible with failure to thrive due to severe dehydration due to not eating or drinking. He also has an underlying advanced dementia. Recommendations 1. Continue present management. 2. Continue correction of toxic/metabolic imbalances. 3. Mobilize with PT/OT. SUSY BRICE M.D., M.S.P.H. SUSY BRICE Sep 19, 2017 17:17
--- NOTE | 2017-09-19 18:03 | General Progress Note ---
Assessment/Plan Status: stable Assessment/Plan Patient showing improvement. He underwent PEG tube and this should help improve his nutrition. Recommend continuing the bactroban ointment and off loading. Discussed with caregiver. If he is d/c'd to home can arrange f/u with me at the [facility] center. If he goes to SNF then should continue the bactroban until the ulcers are healed. Thank you. Subjective Date patient seen: Sep 19, 2017 Time patient seen: 17:59 Constitutional: Reports: no symptoms Respiratory: Reports: cough, sputum Gastrointestinal/Abdominal: Reports: difficulty swallowing Genitourinary: Reports: incontinence Allergies: Coded Allergies: MORPHINE (Verified Allergy, Unknown, 09/08/17) Objective Last 24 Hour Vital Signs Date Time Temp Pulse Resp B/P (MAP) Pulse Ox O2 Delivery O2 Flow Rate FiO2 09/19/17 15:46 97.9 96 20 148/69 95 Room Air 09/19/17 12:00 97.7 92 20 126/64 95 Nasal Cannula 3.0 09/19/17 12:00 93 09/19/17 08:22 94 132/60 09/19/17 08:16 94 132/60 09/19/17 08:00 97.5 94 20 132/60 94 Nasal Cannula 3.0 09/19/17 08:00 94 09/19/17 04:00 98.1 99 16 135/70 96 Nasal Cannula 3.0 09/19/17 04:00 94 09/19/17 00:00 99 09/19/17 00:00 98.2 98 18 129/58 98 Nasal Cannula 3.0 09/18/17 20:40 93 139/65 09/18/17 20:00 98.1 93 19 139/65 96 Nasal Cannula 3.0 09/18/17 20:00 101 Intake and Output 09/18/17 09/19/17 19:00 07:00 Intake Total 600 ml 1393 ml Output Total 800 ml 300 ml Balance -200 ml 1093 ml Intake Oral 300 ml Free Water 200 ml IV Total 600 ml 893 ml Output Urine Total 800 ml 300 ml Estimated Blood Loss 0 ml # Voids 2 Laboratory Tests 09/19/17 07:30: White Blood Count 10.3, Red Blood Count 3.41L, Hemoglobin 11.7L, Hematocrit 34.5L, Mean Corpuscular Volume 101H, Mean Corpuscular Hemoglobin 34.2H, Mean Corpuscular Hemoglobin Concent 33.9, Red Cell Distribution Width 12.4, Platelet Count 217, Mean Platelet Volume 9.5, Neutrophils (%) (Auto) 77.0H, Lymphocytes ( %) (Auto) 13.7L, Monocytes (%) (Auto) 5.7, Eosinophils (%) (Auto) 2.8, Basophils (%) (Auto) 0.8, Sodium Level 141, Potassium Level 4.8, Chloride Level 109H, Carbon Dioxide Level 23, Anion Gap 9, Blood Urea Nitrogen 38H, Creatinine 1.6H, Estimat Glomerular Filtration Rate , Glucose Level 95, Calcium Level 9.0 Height (Feet): 5 Height (Inches): 6.00 Weight (Pounds): 110 General Appearance: no apparent distress, alert Respiratory/Chest: no respiratory distress Abdomen: non tender, soft Edema: no edema noted Leg (L), no edema noted Leg (R) Skin: other - Ulcers b/l buttocks wioth interval improvement. Right buttock ulcer is healed. Left buttock ulcer with pink granular base. No erythema or warmth in periskin. MARIA D WATSON Sep 19, 2017 18:03
[2017-09-19 20:00] VITALS: BP_SYST 121; BP_SYST 132; BP_DIAS 60; BP_DIAS 74
--- NOTE | 2017-09-19 20:34 | General Progress Note ---
Assessment/Plan Assessment/Plan dehydration renal failure hypernatremia urinary obstruction dementia ho alcoholism hyperthyrodism buttock wound fluids nephrolgy fup has valery urolgy fup monitor labs dw Dr Moura started on tapazole gi eval appreciated dw Dr Dorado gtube placement done tolerating feedings restart asa plavix when ok with gi ct noted wound care per Dr holloway ID eval appreciated on vanco and levoquin dvt and ulcer prophylaxis pt/ot clarence Feng states symptoms from worsining dementia and encephalopathy urology fup re rasmussenmelchor Au will leave in for now dc planning Subjective Allergies: Coded Allergies: MORPHINE (Verified Allergy, Unknown, 09/08/17) Subjective awake more verbal today tolerating gtube feedings Objective Last 24 Hour Vital Signs Date Time Temp Pulse Resp B/P (MAP) Pulse Ox O2 Delivery O2 Flow Rate FiO2 09/19/17 20:00 97.5 94 20 132/60 94 Room Air 09/19/17 16:00 99 09/19/17 15:46 97.9 96 20 148/69 95 Room Air 09/19/17 12:00 97.7 92 20 126/64 95 Nasal Cannula 3.0 09/19/17 12:00 93 09/19/17 08:22 94 132/60 09/19/17 08:16 94 132/60 09/19/17 08:00 97.5 94 20 132/60 94 Nasal Cannula 3.0 09/19/17 08:00 94 09/19/17 04:00 98.1 99 16 135/70 96 Nasal Cannula 3.0 09/19/17 04:00 94 09/19/17 00:00 99 09/19/17 00:00 98.2 98 18 129/58 98 Nasal Cannula 3.0 09/18/17 20:40 93 139/65 Intake and Output 09/18/17 09/19/17 19:00 07:00 Intake Total 600 ml 1393 ml Output Total 800 ml 300 ml Balance -200 ml 1093 ml Intake Oral 300 ml Free Water 200 ml IV Total 600 ml 893 ml Output Urine Total 800 ml 300 ml Estimated Blood Loss 0 ml # Voids 2 Laboratory Tests 09/19/17 07:30: White Blood Count 10.3, Red Blood Count 3.41L, Hemoglobin 11.7L, Hematocrit 34.5L, Mean Corpuscular Volume 101H, Mean Corpuscular Hemoglobin 34.2H, Mean Corpuscular Hemoglobin Concent 33.9, Red Cell Distribution Width 12.4, Platelet Count 217, Mean Platelet Volume 9.5, Neutrophils (%) (Auto) 77.0H, Lymphocytes ( %) (Auto) 13.7L, Monocytes (%) (Auto) 5.7, Eosinophils (%) (Auto) 2.8, Basophils (%) (Auto) 0.8, Sodium Level 141, Potassium Level 4.8, Chloride Level 109H, Carbon Dioxide Level 23, Anion Gap 9, Blood Urea Nitrogen 38H, Creatinine 1.6H, Estimat Glomerular Filtration Rate , Glucose Level 95, Calcium Level 9.0 Height (Feet): 5 Height (Inches): 6.00 Weight (Pounds): 110 General Appearance: WD/WN Neck: supple Cardiovascular: normal rate Respiratory/Chest: lungs clear Abdomen: soft Objective ncat peerla temporal wasting mouth moist mucous membrane buttcok wound YANET MEDELLIN Sep 19, 2017 20:34
[2017-09-19] MEDS: Tamsulosin 0.4mg cap ORAL SCH (21:31)
[2017-09-19] MEDS: Atorvastatin 20mg tab NG SCH (21:31)
--- NOTE | 2017-09-19 21:53 | General Progress Note ---
Assessment/Plan Assessment/Plan Assessment - OBS / AMS - Poor PO - Dehydration - Azotemia - Mild thrombocytopenia - resolved Recommendations - continue TF - ok for ASA and Plavix from GI standpoint - Monitor platelet count - DVT prophylaxis Subjective Allergies: Coded Allergies: MORPHINE (Verified Allergy, Unknown, 09/08/17) Subjective Started on TF s/p PEG yesterday calm, no events Objective Last 24 Hour Vital Signs Date Time Temp Pulse Resp B/P (MAP) Pulse Ox O2 Delivery O2 Flow Rate FiO2 09/19/17 21:32 109 121/74 09/19/17 20:00 Room Air 09/19/17 16:00 99 09/19/17 15:46 97.9 96 20 148/69 95 Room Air 09/19/17 12:00 97.7 92 20 126/64 95 Nasal Cannula 3.0 09/19/17 12:00 93 09/19/17 08:22 94 132/60 09/19/17 08:16 94 132/60 09/19/17 08:00 97.5 94 20 132/60 94 Nasal Cannula 3.0 09/19/17 08:00 94 09/19/17 04:00 98.1 99 16 135/70 96 Nasal Cannula 3.0 09/19/17 04:00 94 09/19/17 00:00 99 09/19/17 00:00 98.2 98 18 129/58 98 Nasal Cannula 3.0 Intake and Output 09/18/17 09/19/17 19:00 07:00 Intake Total 600 ml 1393 ml Output Total 800 ml 300 ml Balance -200 ml 1093 ml Intake Oral 300 ml Free Water 200 ml IV Total 600 ml 893 ml Output Urine Total 800 ml 300 ml Estimated Blood Loss 0 ml # Voids 2 Laboratory Tests 09/19/17 07:30: White Blood Count 10.3, Red Blood Count 3.41L, Hemoglobin 11.7L, Hematocrit 34.5L, Mean Corpuscular Volume 101H, Mean Corpuscular Hemoglobin 34.2H, Mean Corpuscular Hemoglobin Concent 33.9, Red Cell Distribution Width 12.4, Platelet Count 217, Mean Platelet Volume 9.5, Neutrophils (%) (Auto) 77.0H, Lymphocytes ( %) (Auto) 13.7L, Monocytes (%) (Auto) 5.7, Eosinophils (%) (Auto) 2.8, Basophils (%) (Auto) 0.8, Sodium Level 141, Potassium Level 4.8, Chloride Level 109H, Carbon Dioxide Level 23, Anion Gap 9, Blood Urea Nitrogen 38H, Creatinine 1.6H, Estimat Glomerular Filtration Rate , Glucose Level 95, Calcium Level 9.0 Height (Feet): 5 Height (Inches): 6.00 Weight (Pounds): 110 Objective Debilitated elderly man NCAT supple CTA RRR soft ND NT, (+) GT no edema CESIA AMEZCUA Sep 19, 2017 21:53
[2017-09-20] VITALS: BP 102/51
[2017-09-20 04:00] VITALS: BP 123/69
[2017-09-20 08:00] VITALS: BP 121/64
[2017-09-20] MEDS: Metoprolol 25mg tab NG SCH ×2 (09:49→20:34)
[2017-09-20] MEDS: Lactobacillus-GG tablet NG SCH ×2 (09:51→18:22)
[2017-09-20] MEDS: Aspirin Baby 81mg GT SCH (09:51)
[2017-09-20] MEDS: Thiamine 100mg tab NG SCH (09:51)
[2017-09-20] MEDS: Multivitamins W/Minerals 15 ML UDC NG SCH (09:51)
[2017-09-20] MEDS: Docusate 100mg/10ml Liq NG SCH ×2 (09:51→20:34)
[2017-09-20 12:00] VITALS: BP 100/64
--- NOTE | 2017-09-20 12:07 | Nephrology Progress Note ---
Assessment/Plan Problem List: (1) Hypernatremia Assessment: corrected (2) Acute renal failure Assessment: stable (3) Episode of generalized weakness (4) Protein-calorie malnutrition, moderate Assessment renal function stable Plan cont with TF follow labs DC plan Subjective Subjective In NAD Objective Objective Last 24 Hour Vital Signs Date Time Temp Pulse Resp B/P (MAP) Pulse Ox O2 Delivery O2 Flow Rate FiO2 09/20/17 09:51 106 121/64 09/20/17 09:49 106 121/64 09/20/17 08:00 98.1 106 20 121/64 94 Room Air 09/20/17 04:00 103 09/20/17 04:00 98.1 108 18 123/69 94 Room Air 09/20/17 00:00 97.9 99 20 102/51 93 Room Air 09/20/17 00:00 102 09/19/17 21:32 109 121/74 09/19/17 20:00 99.4 108 20 121/74 96 Room Air 09/19/17 20:00 101 09/19/17 16:00 99 09/19/17 15:46 97.9 96 20 148/69 95 Room Air Intake and Output 09/19/17 09/20/17 19:00 07:00 Intake Total 585 ml 750 ml Output Total 400 ml 725 ml Balance 185 ml 25 ml Free Water 180 ml IV Total 450 ml Tube Feeding 135 ml 570 ml Output Urine Total 400 ml 725 ml Laboratory Tests 09/20/17 11:45: Vancomycin Level Trough [Pending] Height (Feet): 5 Height (Inches): 6.00 Weight (Pounds): 110 Cardiovascular: normal rate Respiratory/Chest: lungs clear Extremities: other - no edema MARYA KENDALL Sep 20, 2017 12:07
[2017-09-20 16:00] VITALS: BP 146/68
[2017-09-20 20:00] VITALS: BP 145/64
[2017-09-20] MEDS: Tamsulosin 0.4mg cap ORAL SCH (20:33)
[2017-09-20] MEDS: Atorvastatin 20mg tab NG SCH (20:34)
--- NOTE | 2017-09-20 20:55 | General Progress Note ---
Assessment/Plan Assessment/Plan Assessment - OBS / AMS - Poor PO - Dehydration - Azotemia - Mild thrombocytopenia - resolved Recommendations - continue TF - ASA and Plavix - Monitor platelet count - DVT prophylaxis Subjective Allergies: Coded Allergies: MORPHINE (Verified Allergy, Unknown, 09/08/17) Subjective tolerating TF d/w [employer] - will change TF to bolus for ease of home administration Objective Last 24 Hour Vital Signs Date Time Temp Pulse Resp B/P (MAP) Pulse Ox O2 Delivery O2 Flow Rate FiO2 09/20/17 20:34 103 145/64 09/20/17 16:00 105 09/20/17 16:00 98.2 102 20 146/68 99 Room Air 09/20/17 12:00 98.0 95 20 100/64 98 Room Air 09/20/17 12:00 98 09/20/17 09:51 106 121/64 09/20/17 09:49 106 121/64 09/20/17 08:00 98.1 106 20 121/64 94 Room Air 09/20/17 08:00 107 09/20/17 04:00 103 09/20/17 04:00 98.1 108 18 123/69 94 Room Air 09/20/17 00:00 97.9 99 20 102/51 93 Room Air 09/20/17 00:00 102 09/19/17 21:32 109 121/74 Intake and Output 09/19/17 09/20/17 19:00 07:00 Intake Total 585 ml 750 ml Output Total 400 ml 725 ml Balance 185 ml 25 ml Free Water 180 ml IV Total 450 ml Tube Feeding 135 ml 570 ml Output Urine Total 400 ml 725 ml Laboratory Tests 09/20/17 11:45: Vancomycin Level Trough 10.4 Height (Feet): 5 Height (Inches): 6.00 Weight (Pounds): 110 Objective Debilitated elderly man NCAT supple CTA RRR soft ND NT, (+) GT no edema CESIA AMEZCUA Sep 20, 2017 20:55
--- NOTE | 2017-09-20 21:50 | General Progress Note ---
Assessment/Plan Assessment/Plan dehydration renal failure hypernatremia urinary obstruction dementia ho alcoholism hyperthyrodism buttock wound fluids nephrolgy fup has rasmussen urolgy fup monitor labs dw Dr Moura started on tapazole gi eval appreciated clarence Dorado gtube placement done tolerating feedings restart asa plavix when ok with gi ct noted wound care per Dr holloway ID eval appreciated on vanco and levoquin, abx duration per ID dvt and ulcer prophylaxis pt/ot clarence Feng states symptoms from worsining dementia and encephalopathy urology fup re rasmussen dw Dr Au will leave in for now dc planning dw caregiver they want snf clarence streeter arr[facility]raine at [facility] Subjective Allergies: Coded Allergies: MORPHINE (Verified Allergy, Unknown, 09/08/17) Subjective awake more verbal today tolerating gtube feedings Objective Last 24 Hour Vital Signs Date Time Temp Pulse Resp B/P (MAP) Pulse Ox O2 Delivery O2 Flow Rate FiO2 09/20/17 20:34 103 145/64 09/20/17 16:00 105 09/20/17 16:00 98.2 102 20 146/68 99 Room Air 09/20/17 12:00 98.0 95 20 100/64 98 Room Air 09/20/17 12:00 98 09/20/17 09:51 106 121/64 09/20/17 09:49 106 121/64 09/20/17 08:00 98.1 106 20 121/64 94 Room Air 09/20/17 08:00 107 09/20/17 04:00 103 09/20/17 04:00 98.1 108 18 123/69 94 Room Air 09/20/17 00:00 97.9 99 20 102/51 93 Room Air 09/20/17 00:00 102 Intake and Output 09/19/17 09/20/17 19:00 07:00 Intake Total 585 ml 750 ml Output Total 400 ml 725 ml Balance 185 ml 25 ml Free Water 180 ml IV Total 450 ml Tube Feeding 135 ml 570 ml Output Urine Total 400 ml 725 ml Laboratory Tests 09/20/17 11:45: Vancomycin Level Trough 10.4 Height (Feet): 5 Height (Inches): 6.00 Weight (Pounds): 110 Neck: supple Cardiovascular: normal rate Respiratory/Chest: lungs clear Abdomen: soft Objective ncat peerla temporal wasting mouth moist mucous membrane buttcok wound YANET MEDELLIN Sep 20, 2017 21:50
--- NOTE | 2017-09-20 22:59 | Urology Progress Note ---
Assessment/Plan Assessment/Plan urinary retention BPH hx neurogenic bladder urethral stricture hematuria pyuria proteinuria ROMELIA/CRI renal cyst would keep rasmussen indwelling until pt more medically stable, alert and ambulatory hand irrigate PRN monitor renal fxn Subjective Allergies: Coded Allergies: MORPHINE (Verified Allergy, Unknown, 09/08/17) Subjective all noted Objective Last 24 Hour Vital Signs Date Time Temp Pulse Resp B/P (MAP) Pulse Ox O2 Delivery O2 Flow Rate FiO2 09/20/17 20:34 103 145/64 09/20/17 20:00 98.2 103 20 145/64 95 Room Air 09/20/17 20:00 97 09/20/17 16:00 105 09/20/17 16:00 98.2 102 20 146/68 99 Room Air 09/20/17 12:00 98.0 95 20 100/64 98 Room Air 09/20/17 12:00 98 09/20/17 09:51 106 121/64 09/20/17 09:49 106 121/64 09/20/17 08:00 98.1 106 20 121/64 94 Room Air 09/20/17 08:00 107 09/20/17 04:00 103 09/20/17 04:00 98.1 108 18 123/69 94 Room Air 09/20/17 00:00 97.9 99 20 102/51 93 Room Air 09/20/17 00:00 102 Intake and Output 09/19/17 09/20/17 19:00 07:00 Intake Total 585 ml 750 ml Output Total 400 ml 725 ml Balance 185 ml 25 ml Free Water 180 ml IV Total 450 ml Tube Feeding 135 ml 570 ml Output Urine Total 400 ml 725 ml Microbiology Date/Time Source Procedure Growth Status 09/08/17 19:00 Blood Blood Culture - Final NO GROWTH AFTER 5 DAYS Complete 09/09/17 00:22 Nasal Nares MRSA Culture - Final NO METHICILLIN RESISTANT STAPH AUREUS... Complete 09/15/17 06:00 Indwelling Cath Urine Culture - Final NO GROWTH AFTER 48 HOURS Complete 09/09/17 00:22 Rectum VRE Culture - Final NO VANCOMYCIN RESISTANT ENTEROCOCCUS ... Complete Current Medications Medications (Trade) Dose Ordered Sig/Elvia Route PRN Reason Start Time Stop Time Status Last Admin Dose Admin Acetaminophen (Tylenol) 650 mg Q4H PRN ORAL Mild Pain (Pain Scale 1-3) 09/08/17 23:15 10/08/17 23:14 09/19/17 21:34 Acetaminophen (Tylenol) 650 mg Q4H PRN ORAL fever 09/08/17 23:15 10/08/17 23:14 Amlodipine Besylate (Norvasc) 2.5 mg DAILY NG 09/12/17 10:30 10/12/17 10:29 09/20/17 09:51 Aspirin (ASA) 81 mg DAILY GT 09/18/17 11:00 10/18/17 10:59 09/20/17 09:51 Atorvastatin Calcium (Lipitor) 40 mg BEDTIME NG 09/12/17 21:00 10/12/17 20:59 09/20/17 20:34 Clopidogrel Bisulfate (Plavix) 75 mg DAILY ORAL 09/20/17 09:00 10/20/17 08:59 09/20/17 09:51 Dextrose (Dextrose 50%) STAT PRN IV Hypoglycemia 09/08/17 23:15 10/08/17 23:14 Docusate Sodium (Colace) 100 mg EVERY 12 HOURS NG 09/12/17 10:30 10/09/17 08:59 09/20/17 20:34 Doxycycline Monohydrate (Vibramycin) 100 mg EVERY 12 HOURS ORAL 09/20/17 21:00 09/25/17 23:55 09/20/17 20:35 Folic Acid (Folate) 1 mg DAILY NG 09/12/17 10:30 10/12/17 10:29 09/20/17 09:49 Lactobacillus Acidophilus (Culturelle) 1 tab TWICE A DAY NG 09/12/17 10:30 10/12/17 10:29 09/20/17 18:22 Lansoprazole (Prevacid) 30 mg ACBREAKFAST NG 09/13/17 06:30 10/13/17 06:29 09/20/17 05:30 Levofloxacin (Levaquin) 250 mg DAILY NG 09/21/17 09:00 09/25/17 23:55 Magnesium Hydroxide (Mom) 30 ml HSPRN PRN NG Constipation 09/12/17 09:30 10/12/17 09:29 Methimazole (Tapazole) 10 mg DAILY NG 09/12/17 10:30 10/12/17 10:29 09/20/17 09:49 Metoprolol Tartrate (Lopressor) 25 mg EVERY 12 HOURS NG 09/12/17 10:30 10/12/17 10:29 09/20/17 20:34 Multivitamins (Multivitamins W/ Minerals 15ml Liquid) 15 ml DAILY NG 09/12/17 10:30 10/12/17 10:29 09/20/17 09:51 Mupirocin (Bactroban Oint) 1 applic DAILY TOPIC 09/16/17 14:00 09/21/17 13:59 09/20/17 09:55 Risperidone (RisperDAL) 1 mg Q6H PRN GT Agitation 09/20/17 11:15 10/20/17 11:14 09/20/17 11:16 Tamsulosin HCl (Flomax) 0.4 mg BEDTIME ORAL 09/16/17 21:00 10/16/17 20:59 09/20/17 20:33 Thiamine HCl (Vitamin B1) 100 mg DAILY NG 09/12/17 10:30 10/12/17 10:29 09/20/17 09:51 Labs Test 09/19/17 07:30 09/20/17 11:45 White Blood Count 10.3 K/UL (4.8-10.8) Red Blood Count 3.41 M/UL (4.70-6.10) Hemoglobin 11.7 G/DL (14.2-18.0) Hematocrit 34.5 % (42.0-52.0) Mean Corpuscular Volume 101 FL (80-99) Mean Corpuscular Hemoglobin 34.2 PG (27.0-31.0) Mean Corpuscular Hemoglobin Concent 33.9 G/DL (32.0-36.0) Red Cell Distribution Width 12.4 % (11.6-14.8) Platelet Count 217 K/UL (150-450) Mean Platelet Volume 9.5 FL (6.5-10.1) Neutrophils (%) (Auto) 77.0 % (45.0-75.0) Lymphocytes (%) (Auto) 13.7 % (20.0-45.0) Monocytes (%) (Auto) 5.7 % (1.0-10.0) Eosinophils (%) (Auto) 2.8 % (0.0-3.0) Basophils (%) (Auto) 0.8 % (0.0-2.0) Sodium Level 141 MMOL/L (136-145) Potassium Level 4.8 MMOL/L (3.5-5.1) Chloride Level 109 MMOL/L (98-107) Carbon Dioxide Level 23 MMOL/L (21-32) Anion Gap 9 mmol/L (5-15) Blood Urea Nitrogen 38 mg/dL (7-18) Creatinine 1.6 MG/DL (0.55-1.30) Estimat Glomerular Filtration Rate mL/min (>60) Glucose Level 95 MG/DL (74-106) Calcium Level 9.0 MG/DL (8.5-10.1) Vancomycin Level Trough 10.4 ug/mL (5.0-12.0) Laboratory Tests 09/20/17 11:45: Vancomycin Level Trough 10.4 Height (Feet): 5 Height (Inches): 6.00 Weight (Pounds): 110 Objective exam stable repeat UA (09/17) noted MARIA D SORTO Sep 20, 2017 22:59
--- NOTE | 2017-09-20 23:44 | Neurology Progress Note ---
Interim History Interim History Interim History Mr. Cordova feels better. He is alert and brighter. His G-tube is functioning well. He is being fed through his GT and is tolerating the feeds well. His speech is clearer. He continues to be cognitively impoverished. He continues to be motorically challenged. The left ankle is still painful and so is the right. He denies any new neurologic symptoms. Review of Systems Neuro Review of Systems Unable to obtain. Objective Physical Exam Last Vital Signs Date Time Temp Pulse Resp B/P (MAP) Pulse Ox O2 Delivery O2 Flow Rate FiO2 09/20/17 20:34 103 145/64 09/20/17 20:00 98.2 20 95 Room Air 09/19/17 15:46 Laboratory Tests Test 09/20/17 11:45 Vancomycin Level Trough 10.4 ug/mL (5.0-12.0) Neurologic Exam Objective PHYSICAL EXAMINATION: GENERAL: He is a well-developed but lean gentleman lying in bed, in no acute distress. HEAD: Normocephalic and atraumatic. NECK: No neck rigidity was observed. EENT: Examination benign. NEUROLOGICAL EXAMINATION: MENTAL STATUS EXAMINATION: He was awake and alert. He was significantly brighter. He was oriented to self only. He had no idea of where he was or what the date was. He was unable to cooperate for further mental status tests. SPEECH: He had a mild dysarthria - however his dysarthria was better.. LANGUAGE: He had problems with comprehension, repetition, naming, and expression of language. CRANIAL NERVE EXAMINATION: II: The visual miller were difficult to test because of his inability to cooperate. He did, however, blink to threat. He was able to count fingers. He however had problems recognizing objects held in front of him. III, IV & : The external ocular movements were full, and the pupils 3 mm in diameter, equal, round, regular, and reactive to light. V: He had normal facial sensations and the temporales, masseters, and pterygoids functioned normally. VII: He had a trace right 7th central facial paresis. VIII: He was able to hear, and had no nystagmus. IX: The palate moved symmetrically on phonation. X: He had no hoarseness of voice. XI: The sternocleidomastoids and trapezii functioned normally. XII: The tongue was in the midline without any fasciculations or atrophy. MOTOR SYSTEM: The tone was increased in all 4 extremities with a combination of spasticity and Gegenhalten. Examination of muscle mass revealed no focal wasting. Examination of power was exceedingly difficult to perform because of varying degrees of cooperation. He did, however, move all 4 extremities on command with distal upper extremity and proximal an distal lower extremity weakness. SENSORY EXAMINATION: He did respond to deep pain. He was unable to cooperate for other sensory modalities. REFLEXES: 1+ and bilaterally symmetrical at the biceps, triceps, brachioradialis , and knees; 0 at both ankles. The plantar responses were flexor bilaterally. COORDINATION:He was significantly apractic in both his upper and lower extremities, and was unable to perform [id number] and [id number] testing. STANCE & GAIT: Were deferred. Impression/Recommendations Diagnostic Impression 1. Mr. Aashish Cordova is an 81-year-old, right-handed, gentleman, who does have a past history of hypertension, dyslipidemia, coronary artery disease - status post percutaneous intervention, chronic kidney disease, benign prostatic hypertrophy, anemia, alcoholism, influenza type A, and a possible pneumonia, and a cognitive decline for the last year. He was hospitalized for failure to thrive. 2. He feels much better. He is alert and brighter. He continues to be cognitively impoverished and motorically challenged. 3. On neurological examination, at this time, he does have problems with orientation, recent and remote memory, visuospatial function, higher cognitive function, and language. 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 4. His laboratory data on admission revealed that his creatinine was elevated to 2.8, his BUN was elevated to 113, his Na was elevated to 162, his Cl was elevated to 122, his HB was elevated to 18 G. 5. The patient's history, neurological examination, laboratory data are most compatible with failure to thrive due to severe dehydration due to not eating or drinking. He also has an underlying advanced dementia. 6. With his nutrition improving he is improving. Recommendations 1. Continue present management. 2. Continue correction of toxic/metabolic imbalances. 3. Mobilize with PT/OT. SUSY BRICE M.D., M.S.P.Tiffany. SUSY BRICE Sep 20, 2017 23:44
[2017-09-21] VITALS: BP 146/59
[2017-09-21 04:00] VITALS: BP 118/52
[2017-09-21 08:00] VITALS: BP 126/55
[2017-09-21] MEDS: Metoprolol 25mg tab NG SCH (08:36)
[2017-09-21] MEDS: Thiamine 100mg tab NG SCH (08:36)
[2017-09-21] MEDS: Aspirin Baby 81mg GT SCH (08:36)
[2017-09-21] MEDS: Docusate 100mg/10ml Liq NG SCH (08:36)
[2017-09-21] MEDS: Lactobacillus-GG tablet NG SCH (08:36)
[2017-09-21] MEDS: Multivitamins W/Minerals 15 ML UDC NG SCH (08:36)
--- NOTE | 2017-09-21 09:49 | Infectious Diseases Prog Note ---
Assessment/Plan Assessment/Plan A; Sepsis Wound infection Dysphagia s/p GT placement Acute renal failure, CKD Gastrostomy status P; Continue Levaquin & Doxycycline X 6 days Subjective ROS Limited/Unobtainable: Yes Allergies: Coded Allergies: MORPHINE (Verified Allergy, Unknown, 09/08/17) Objective Vital Signs Last 24 Hour Vital Signs Date Time Temp Pulse Resp B/P (MAP) Pulse Ox O2 Delivery O2 Flow Rate FiO2 09/21/17 09:00 105 09/21/17 08:36 104 126/55 09/21/17 08:36 88 118/52 09/21/17 08:00 99.7 104 18 126/55 96 Room Air 09/21/17 04:00 97.0 91 20 118/52 97 Room Air 09/21/17 04:00 88 09/21/17 00:00 97.7 106 22 146/59 97 Room Air 09/20/17 23:51 103 09/20/17 20:34 103 145/64 09/20/17 20:00 98.2 103 20 145/64 95 Room Air 09/20/17 20:00 97 09/20/17 16:00 105 09/20/17 16:00 98.2 102 20 146/68 99 Room Air 09/20/17 12:00 98.0 95 20 100/64 98 Room Air 09/20/17 12:00 98 09/20/17 09:51 106 121/64 09/20/17 09:49 106 121/64 Height (Feet): 5 Height (Inches): 6.00 Weight (Pounds): 110 General Appearance: no acute distress HEENT: mucous membranes moist Respiratory/Chest: lungs clear Cardiovascular: tachycardia Abdomen: soft, non tender, other - GT feedimg Skin: ulcers, other - buttoks, healing Neurologic/Psychiatric: aphasia, other - awake Laboratory Tests Test 09/20/17 11:45 Vancomycin Level Trough 10.4 ug/mL (5.0-12.0) Current Medications Medications (Trade) Dose Ordered Sig/Elvia Route PRN Reason Start Time Stop Time Status Last Admin Dose Admin Acetaminophen (Tylenol) 650 mg Q4H PRN ORAL Mild Pain (Pain Scale 1-3) 09/08/17 23:15 10/08/17 23:14 09/19/17 21:34 Acetaminophen (Tylenol) 650 mg Q4H PRN ORAL fever 09/08/17 23:15 10/08/17 23:14 Amlodipine Besylate (Norvasc) 2.5 mg DAILY NG 09/12/17 10:30 10/12/17 10:29 09/21/17 08:36 Aspirin (ASA) 81 mg DAILY GT 09/18/17 11:00 10/18/17 10:59 09/21/17 08:36 Atorvastatin Calcium (Lipitor) 40 mg BEDTIME NG 09/12/17 21:00 10/12/17 20:59 09/20/17 20:34 Clopidogrel Bisulfate (Plavix) 75 mg DAILY ORAL 09/20/17 09:00 10/20/17 08:59 09/21/17 08:36 Dextrose (Dextrose 50%) STAT PRN IV Hypoglycemia 09/08/17 23:15 10/08/17 23:14 Docusate Sodium (Colace) 100 mg EVERY 12 HOURS NG 09/12/17 10:30 10/09/17 08:59 09/21/17 08:36 Doxycycline Monohydrate (Vibramycin) 100 mg EVERY 12 HOURS ORAL 09/20/17 21:00 09/25/17 23:55 09/21/17 08:36 Folic Acid (Folate) 1 mg DAILY NG 09/12/17 10:30 10/12/17 10:29 09/21/17 08:35 Lactobacillus Acidophilus (Culturelle) 1 tab TWICE A DAY NG 09/12/17 10:30 10/12/17 10:29 09/21/17 08:36 Lansoprazole (Prevacid) 30 mg ACBREAKFAST NG 09/13/17 06:30 10/13/17 06:29 09/21/17 05:46 Levofloxacin (Levaquin) 250 mg DAILY NG 09/21/17 09:00 09/25/17 23:55 09/21/17 08:35 Magnesium Hydroxide (Mom) 30 ml HSPRN PRN NG Constipation 09/12/17 09:30 10/12/17 09:29 Methimazole (Tapazole) 10 mg DAILY NG 09/12/17 10:30 10/12/17 10:29 09/21/17 08:35 Metoprolol Tartrate (Lopressor) 25 mg EVERY 12 HOURS NG 09/12/17 10:30 10/12/17 10:29 09/21/17 08:36 Multivitamins (Multivitamins W/ Minerals 15ml Liquid) 15 ml DAILY NG 09/12/17 10:30 10/12/17 10:29 09/21/17 08:36 Mupirocin (Bactroban Oint) 1 applic DAILY TOPIC 09/16/17 14:00 09/21/17 13:59 09/21/17 08:36 Risperidone (RisperDAL) 1 mg Q6H PRN GT Agitation 09/20/17 11:15 10/20/17 11:14 09/20/17 11:16 Tamsulosin HCl (Flomax) 0.4 mg BEDTIME ORAL 09/16/17 21:00 10/16/17 20:59 09/20/17 20:33 Thiamine HCl (Vitamin B1) 100 mg DAILY NG 09/12/17 10:30 10/12/17 10:29 09/21/17 08:36 ROSE MARY KENDALL Sep 21, 2017 09:49
--- NOTE | 2017-09-21 09:54 | Nephrology Progress Note ---
Assessment/Plan Problem List: (1) Hypernatremia Assessment: corrected (2) Acute renal failure Assessment: stable (3) Episode of generalized weakness (4) Protein-calorie malnutrition, moderate Assessment renal function stable Plan cont with TF follow labs DC plan noted Subjective Subjective In NAD Objective Objective Last 24 Hour Vital Signs Date Time Temp Pulse Resp B/P (MAP) Pulse Ox O2 Delivery O2 Flow Rate FiO2 09/21/17 09:00 105 09/21/17 08:36 104 126/55 09/21/17 08:36 88 118/52 09/21/17 08:00 99.7 104 18 126/55 96 Room Air 09/21/17 04:00 97.0 91 20 118/52 97 Room Air 09/21/17 04:00 88 09/21/17 00:00 97.7 106 22 146/59 97 Room Air 09/20/17 23:51 103 09/20/17 20:34 103 145/64 09/20/17 20:00 98.2 103 20 145/64 95 Room Air 09/20/17 20:00 97 09/20/17 16:00 105 09/20/17 16:00 98.2 102 20 146/68 99 Room Air 09/20/17 12:00 98.0 95 20 100/64 98 Room Air 09/20/17 12:00 98 Intake and Output 09/20/17 09/21/17 19:00 07:00 Intake Total 1050 ml 1100 ml Output Total 350 ml 1050 ml Balance 700 ml 50 ml Free Water 200 ml 200 ml Tube Feeding 750 ml 900 ml Blood Product 100 ml Output Urine Total 350 ml 1050 ml Laboratory Tests 09/20/17 11:45: Vancomycin Level Trough 10.4 Height (Feet): 5 Height (Inches): 6.00 Weight (Pounds): 110 Cardiovascular: normal rate Respiratory/Chest: lungs clear Extremities: other - no edema MARYA KENDALL Sep 21, 2017 09:54
[2017-09-21 12:00] VITALS: BP 119/56
--- NOTE | 2017-09-21 12:04 | Neurology Progress Note ---
Interim History Interim History Interim History Mr. Cordova feels better. He continues to be alert and brighter. His G-tube is functioning well. He is being fed through his GT and is tolerating the feeds well. His speech is clearer. He continues to be cognitively impoverished. He continues to be motorically challenged. The left ankle is still painful and so is the right. He denies any new neurologic symptoms. Review of Systems Neuro Review of Systems Unable to obtain. Objective Physical Exam Last Vital Signs Date Time Temp Pulse Resp B/P (MAP) Pulse Ox O2 Delivery O2 Flow Rate FiO2 09/21/17 09:00 105 09/21/17 08:36 126/55 09/21/17 08:00 99.7 18 96 Room Air 09/19/17 15:46 Neurologic Exam Objective PHYSICAL EXAMINATION: GENERAL: He is a well-developed but lean gentleman lying in bed, in no acute distress. HEAD: Normocephalic and atraumatic. NECK: No neck rigidity was observed. EENT: Examination benign. NEUROLOGICAL EXAMINATION: MENTAL STATUS EXAMINATION: He was awake and alert. He was brighter. He was oriented to self only. He had no idea of where he was or what the date was. He was unable to cooperate for further mental status tests. SPEECH: He had a mild dysarthria - however his dysarthria was better.. LANGUAGE: He had problems with comprehension, repetition, naming, and expression of language. CRANIAL NERVE EXAMINATION: II: The visual miller were difficult to test because of his inability to cooperate. He did, however, blink to threat. He was able to count fingers. He however had problems recognizing objects held in front of him. III, IV & : The external ocular movements were full, and the pupils 3 mm in diameter, equal, round, regular, and reactive to light. V: He had normal facial sensations and the temporales, masseters, and pterygoids functioned normally. VII: He had a trace right 7th central facial paresis. VIII: He was able to hear, and had no nystagmus. IX: The palate moved symmetrically on phonation. X: He had no hoarseness of voice. XI: The sternocleidomastoids and trapezii functioned normally. XII: The tongue was in the midline without any fasciculations or atrophy. MOTOR SYSTEM: The tone was increased in all 4 extremities with a combination of spasticity and Gegenhalten. Examination of muscle mass revealed no focal wasting. Examination of power was exceedingly difficult to perform because of varying degrees of cooperation. He did, however, move all 4 extremities on command with distal upper extremity and proximal an distal lower extremity weakness. SENSORY EXAMINATION: He did respond to deep pain. He was unable to cooperate for other sensory modalities. REFLEXES: 1+ and bilaterally symmetrical at the biceps, triceps, brachioradialis , and knees; 0 at both ankles. The plantar responses were flexor bilaterally. COORDINATION:He was significantly apractic in both his upper and lower extremities, and was unable to perform [id number] and [id number] testing. STANCE & GAIT: Were deferred. Impression/Recommendations Diagnostic Impression 1. Mr. Aashish Cordova is an 81-year-old, right-handed, gentleman, who does have a past history of hypertension, dyslipidemia, coronary artery disease - status post percutaneous intervention, chronic kidney disease, benign prostatic hypertrophy, anemia, alcoholism, influenza type A, and a possible pneumonia, and a cognitive decline for the last year. He was hospitalized for failure to thrive. 2. He feels much better. He is alert and brighter. He continues to be cognitively impoverished and motorically challenged. 3. On neurological examination, at this time, he does have problems with orientation, recent and remote memory, visuospatial function, higher cognitive function, and language. 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 4. His laboratory data on admission revealed that his creatinine was elevated to 2.8, his BUN was elevated to 113, his Na was elevated to 162, his Cl was elevated to 122, his HB was elevated to 18 G. 5. The patient's history, neurological examination, laboratory data are most compatible with failure to thrive due to severe dehydration due to not eating or drinking. He also has an underlying advanced dementia. 6. With his nutrition improving he is improving. Recommendations 1. Continue present management. 2. Continue correction of toxic/metabolic imbalances. 3. Mobilize with PT/OT. SUSY BRICE M.D., M.S.P.H. SUSY BRICE Sep 21, 2017 12:04
[2017-09-21] MEDS ORDERED: Sterile Water For Irrig 2000ml IRRIG ONE (13:09)
[2017-09-21] MEDS ORDERED: NS Irrig 1000ml ONE (13:09)
[2017-09-21] MEDS ORDERED: 1/2 NS 1000ml IV ONE (13:09)
--- NOTE | 2017-09-21 17:00 | Consultation ---
DATE OF CONSULTATION: 09/20/2017 HISTORY OF PRESENT ILLNESS: The patient is an 81-year-old male with a history of multiple medical problems including alcoholism, GI bleeds in the past, gastritis, iron deficiency anemia, hyperlipidemia, hypercholesterolemia, cerebral atrophy, alcohol, anemia, hypertension, and renal artery stenosis, who has been admitted to the hospital for medical stabilization. The patient became agitated, confused, is attempting to come out of bed, and not redirectable during the evaluation. He has poor cognition. The patient is not redirectable and has memory impairment. PAST PSYCHIATRIC HISTORY: He has a history of depression, anxiety, and encephalopathy. He has been treated with antipsychotics. PAST MEDICAL HISTORY: As above. ALLERGIES: Allergic to morphine. SOCIAL HISTORY: The patient has a long history of alcohol dependence. He has been abstinent from alcohol for unknown amount of time. The patient resides in a shelter. MENTAL STATUS EXAMINATION: The patient is alert, however, confused. Uncooperative with the examination due to cognitive impairment. Mood is agitated. Affect is flat. Congruent with mood. Thought process is concrete. Thought content, positive for delusions. Insight and judgment is impaired. ASSESSMENT: 1. Encephalopathy. 2. Alcohol dependence. PLAN: We will continue current medications. Lala Dior M.D. DR: ANITRA JOB#: [id number] CC:
--- NOTE | 2017-09-21 17:15 | Progress Note ---
DATE: 09/21/2017 SUBJECTIVE: The patient is more manageable and calm. He has been started on risperidone. Responding well. Confused. Not engaged during the evaluation. MENTAL STATUS EXAMINATION: The patient is confused and disoriented. Mood is neutral during the evaluation. Has episodes of agitation. Thought process, there is a paucity of thought content. Thought content, no suicidal or homicidal ideations. ASSESSMENT: Depression. PLAN: 1. We will continue with the current medications. 2. Provide the patient with supportive therapy and reality orientation. Lala Dior M.D. DR: AINTRA JOB#: [id number] CC:
--- NOTE | 2017-09-21 18:15 | Urology Progress Note ---
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 Subjective Allergies: Coded Allergies: MORPHINE (Verified Allergy, Unknown, 09/08/17) Subjective all noted, pt seen earlier today Objective Last 24 Hour Vital Signs Date Time Temp Pulse Resp B/P (MAP) Pulse Ox O2 Delivery O2 Flow Rate FiO2 09/21/17 12:00 98.7 98 18 119/56 96 Room Air 09/21/17 09:00 105 09/21/17 08:36 104 126/55 09/21/17 08:36 88 118/52 09/21/17 08:00 99.7 104 18 126/55 96 Room Air 09/21/17 04:00 97.0 91 20 118/52 97 Room Air 09/21/17 04:00 88 09/21/17 00:00 97.7 106 22 146/59 97 Room Air 09/20/17 23:51 103 09/20/17 20:34 103 145/64 09/20/17 20:00 98.2 103 20 145/64 95 Room Air 09/20/17 20:00 97 Intake and Output 09/20/17 09/21/17 19:00 07:00 Intake Total 1050 ml 1100 ml Output Total 350 ml 1050 ml Balance 700 ml 50 ml Free Water 200 ml 200 ml Tube Feeding 750 ml 900 ml Blood Product 100 ml Output Urine Total 350 ml 1050 ml Microbiology Date/Time Source Procedure Growth Status 09/08/17 19:00 Blood Blood Culture - Final NO GROWTH AFTER 5 DAYS Complete 09/09/17 00:22 Nasal Nares MRSA Culture - Final NO METHICILLIN RESISTANT STAPH AUREUS... Complete 09/15/17 06:00 Indwelling Cath Urine Culture - Final NO GROWTH AFTER 48 HOURS Complete 09/09/17 00:22 Rectum VRE Culture - Final NO VANCOMYCIN RESISTANT ENTEROCOCCUS ... Complete Height (Feet): 5 Height (Inches): 6.00 Weight (Pounds): 110 Objective exam stable repeat UA (2/) noted MARIA D SORTO Sep 21, 2017 18:15
--- NOTE | 2017-09-21 20:56 | General Progress Note ---
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 d/c planned to SNF Objective Last 24 Hour Vital Signs Date Time Temp Pulse Resp B/P (MAP) Pulse Ox O2 Delivery O2 Flow Rate FiO2 09/21/17 12:00 98.7 98 18 119/56 96 Room Air 09/21/17 09:00 105 09/21/17 08:36 104 126/55 09/21/17 08:36 88 118/52 09/21/17 08:00 99.7 104 18 126/55 96 Room Air 09/21/17 04:00 97.0 91 20 118/52 97 Room Air 09/21/17 04:00 88 09/21/17 00:00 97.7 106 22 146/59 97 Room Air 09/20/17 23:51 103 Intake and Output 09/20/17 09/21/17 19:00 07:00 Intake Total 1050 ml 1100 ml Output Total 350 ml 1050 ml Balance 700 ml 50 ml Free Water 200 ml 200 ml Tube Feeding 750 ml 900 ml Blood Product 100 ml Output Urine Total 350 ml 1050 ml Height (Feet): 5 Height (Inches): 6.00 Weight (Pounds): 110 Objective Debilitated elderly man NCAT supple CTA RRR soft ND NT, (+) GT no edema CESIA AMEZCUA Sep 21, 2017 20:56
--- NOTE | 2017-09-22 17:51 | Discharge Summary ---
Discharge Summary Hospital Course Date of Admission Sep 08, 2017 at 19:38 Date of Discharge Sep 21, 2017 at 13:10 Admitting Diagnosis failure to thrive, dehydration, generalized weakne HPI Aashish Cordova is a 81 year old male who was admitted on Sep 08, 2017 at 19:38 for Failure To Thrive, Dehydartion, Generlazized Weakn Hospital Course [id number] Discharge Discharge Disposition Patient was discharged to [facility] (04) Discharge Diagnoses: Carmen Marinelli NP Sep 22, 2017 17:51
--- NOTE | 2017-09-23 07:00 | Discharge Summary 2 SIG ---
DATE OF ADMISSION: 09/08/2017 DATE OF DISCHARGE: 09/21/2017 CONSULTANTS: 1. Llaa Dior M.D. 2. Margot Pal M.D. 3. Adi Au M.D. 4. Harrison St M.D. 5. Adi Nj M.D. 6. Baudilio Payne M.D. 7. Baljit Feng M.D. 8. Yasmany Bonds M.D. BRIEF HOSPITAL COURSE: The patient is an 81-year-old male with history of alcoholism and history of recent admission to [facility] with influenza, presented to the emergency room at [facility] for failure to thrive, generalized weakness and not eating, confused with decreased urine output. He was evaluated at ER and was noted to be in acute renal failure. Creatinine was 2.8. He was found to have urinary retention. Dr. Bonds was able to insert a Mack catheter; however, placement was assisted by using a catheter guide. There was resistance at the bulbar urethra. Sodium was 160, BUN was 113, creatinine was elevated. He was given IV bolus and IV was later switched to D5 water. He had a renal ultrasound done that showed slightly increased renal echogenicity, negative for hydronephrosis. He came in with stage II right medial buttock pressure ulcer and was seen by Dr. Nj. Wound culture was positive for MRSA and was given Bactroban ointment. He was given wound care. He also had hyperthyroid. TSH was suppressed and T4 was elevated. He was started on Tapazole 10 mg daily. On neuro exam, he had problems with orientation, recent and remote memory, visuospatial function, and higher cognitive function. Findings compatible with failure to thrive due to severe dehydration and due to advanced dementia. He was unable to eat safely and high risk for aspiration. NG tube was inserted for tube feeding. On 09/18/2017, he underwent EGD with PEG tube placement by Dr. St. Due to MRSA and Pseudomonas wound infection, the patient was given vancomycin and Levaquin. He was also followed by Dr. Au. Flomax was added to his regimen and advised to keep Mack indwelling until the patient is more alert and ambulatory and would eventually need cystoscopy in the future. He has history of depression and anxiety and has episodes of agitation attempting to come out of bed and non-redirectable. He was given Risperdal. He was restarted on aspirin and Plavix and was tolerating feeding. He was eventually discharged to SNF. FINAL DIAGNOSES: 1. Acute renal failure. 2. Dehydration. 3. Hypernatremia. 4. Urinary obstruction. 5. Worsening dementia. 6. Hyperthyroidism. 7. Stage II bilateral medial buttocks and left heel deep tissue injury, present on admission. 8. Dysphagia, status post PEG. 9. Mild thrombocytopenia. 10. Failure to thrive. 11. Encephalopathy. 12. Depression. 13. Alcohol dependence. 14. BPH. 15. Urethral stricture. 16. Hematuria. 17. Renal cyst. 18. Proteinuria. DISPOSITION: The patient was discharged to [facility]. DISCHARGE MEDICATIONS: Continue prison medications. Continue p.o. antibiotics for six more days. Quintin Walker M.D. I have been assigned to dictate discharge summary on this account and I was not involved in the patient's management. Carmen Marinelli N.P. DR: JORDI JOB#: [id number] CC: STALIN
--- NOTE | 2017-10-04 16:11 | Diagnostic Imaging Report ---
Indication: NG tube placement Technique: XRAY Abdomen 2v Comparison: 09/08/2017 Findings: NG tube courses below level of diaphragms, tip in the region of the proximal stomach. Side-port distal to the expected location of the gastroesophageal junction. Enteric contrast noted within the left colon. Bowel gas pattern is nonobstructive. There is scoliosis and multilevel degenerative change of the spine. Impression: NG tube in the stomach.
== END 2017-09-21 13:10 | disposition short-term general hospital (02) | DRG 682 ==
LOC: EDBD 17:47 → EMR 18:36 → 2E 19:38 → EDBEDREQ 20:22
DX: N17.9 Acute kidney failure, unspecified (principal); G93.40 Encephalopathy, unspecified; L89.322 Pressure ulcer of left buttock, stage 2; L89.312 Pressure ulcer of right buttock, stage 2; R64 Cachexia; E87.0 Hyperosmolality and hypernatremia; F03.90 Unspecified dementia, unspecified severity, without behavioral disturbance, psychotic disturbance, mood disturbance, and anxiety; E44.0 Moderate protein-calorie malnutrition; Z68.1 Body mass index [BMI] 19.9 or less, adult; R13.10 Dysphagia, unspecified; E86.0 Dehydration; R31.9 Hematuria, unspecified; R33.9 Retention of urine, unspecified; N35.9 Urethral stricture, unspecified; R62.7 Adult failure to thrive; K29.80 Duodenitis without bleeding; F10.21 Alcohol dependence, in remission; N40.1 Benign prostatic hyperplasia with lower urinary tract symptoms; R33.8 Other retention of urine; I12.9 Hypertensive chronic kidney disease with stage 1 through stage 4 chronic kidney disease, or unspecified chronic kidney disease; N18.9 Chronic kidney disease, unspecified; E78.5 Hyperlipidemia, unspecified; I25.10 Atherosclerotic heart disease of native coronary artery without angina pectoris; Z98.61 Coronary angioplasty status; R48.2 Apraxia; L89.620 Pressure ulcer of left heel, unstageable; N31.9 Neuromuscular dysfunction of bladder, unspecified; R80.9 Proteinuria, unspecified; N28.1 Cyst of kidney, acquired; J44.9 Chronic obstructive pulmonary disease, unspecified; Z22.322 Carrier or suspected carrier of Methicillin resistant Staphylococcus aureus; F32.9 Major depressive disorder, single episode, unspecified; F41.9 Anxiety disorder, unspecified; K29.70 Gastritis, unspecified, without bleeding; D69.6 Thrombocytopenia, unspecified; E05.90 Thyrotoxicosis, unspecified without thyrotoxic crisis or storm
CPT/HCPCS: 36415; 71045; 71250; 74018; 74176; 76775; 80048; 80053; 80061; 80202; 81001; 81003; 82550; 82553; 83605; 83735; 83970; 84100; 84436; 84439; 84443; 84481; 84484; 85007; 85025; 85610; 85730; 86850; 86900; 86901; 87040; 87070; 87081; 87086; 87181; 87205; 93005; 93970; 94003; 94150; 99285